=== PATIENT | female | born 1955 | race Caucasian/White ===

== ENCOUNTER → 2017-01-02 | Day surgery (SDC) | payer MEDICARE, BC ==
[~2017-01-02] MED LIST: AZEL1SPR2 EACH NARE; BACT800T5 PO; CALCTAB80 PO; CARV12.52 PO; CHOL1CAP61 PO; CLON.5 PO; CYAN1000P IM; CYCL1TAB29 PO; CYMB60CA PO; FLUT1SPR5 EACH NARE; INCOBOTULINUMTOXINA 100 UNITS VIAL IM ONE; KETO10 PO; LOSA100T PO; MACR100C3 PO; MONT10TA2 PO; PANT20 PO; PERC5TAB12 PO; POTA-53 PO; PRAV20TA PO; QUET50XR PO; REQU3TAB PO; SODIUM CHLORIDE 0.9% 10 ML VIAL ONE; SYNT112T PO; TERI14TA PO; VENL75TA PO; VITA200012 PO; ZANT300T PO; ZOLE5P IV
--- NOTE | 2017-01-07 17:31 | M6 ---
cc: WILFRIDO LOCO M.D. DATE: 01/02/2017 DATE OF : 1955 PROCEDURE Injection botulinum toxin type A (Xeomin) right trapezius and posterior cervical musculature. History and physical was completed and signed. Consent was signed. Procedure site was marked. Medications were listed and reconciled. Pain score was recorded. Allergies were noted. Time out was taken. Fluoroscopy time was recorded where applicable. PROCEDURE NOTE: Blood pressure cuff, pulse oximeter were applied. The patient was placed in the sitting position. The skin over the right trapezius and cervical area was prepped with alcohol. The areas of greatest spasticity were identified. A 27 gauge needle was used to inject a total of 180 units of Xeomin at six different locations corresponding to the areas of greatest spasticity. Following this the patient was observed in recovery area with stable vital signs prior to being discharged. W. MD SANTA Salazar/HERMAN /7:24 AM /5:29 PM
== END | disposition home or self-care (01) ==
LOC: PHSDC 06:30
PROVIDERS: ATTEND Pain Medicine Interventional Pain Medicine
DX: G24.3 Spasmodic torticollis (principal); M25.512 Pain in left shoulder; M25.511 Pain in right shoulder
CPT/HCPCS: 64616; J0588

== ENCOUNTER → 2017-01-07 | Day surgery (SDC) | payer MEDICARE, BC ==
--- NOTE | 2017-01-12 05:36 | M6 ---
cc: WILFRIDO LOCO M.D. DATE: 01/07/2017 DATE OF 1955 PROCEDURE Fluoroscopically guided injection left trapezius, botulinum toxin type A (Xeomin). History and physical was completed and signed. Consent was signed. Procedure site was marked. Medications were listed and reconciled. Pain score was recorded. Allergies were noted. Time out was taken. Fluoroscopy time was recorded where applicable. PROCEDURE NOTE: Blood pressure cuff, pulse oximeter were applied. The patient was placed in the sitting position. The skin over the left trapezius and posterior cervical area was prepped with alcohol. The areas of greatest spasticity were identified. A 27 gauge needle was used to inject a total of 180 units of Xeomin at six different locations corresponding to the areas of greatest spasticity. Following this the patient was observed in the recovery area with stable vital signs prior to being discharged. W. MD SANTA Salazar/HERMAN /7:31 AM /5:34 AM
== END | disposition home or self-care (01) ==
LOC: PHSDC 06:53
PROVIDERS: ATTEND Pain Medicine Interventional Pain Medicine
DX: G24.8 Other dystonia (principal); G24.3 Spasmodic torticollis; M25.512 Pain in left shoulder; M25.511 Pain in right shoulder
CPT/HCPCS: 64616; J0588

== ENCOUNTER 2017-01-23 08:37 | Observation (INO) | payer MEDICARE, BC ==
[~2017-01-23] VITALS: Ht 162.6 cm; Wt 72.0 kg
[2017-01-23] VITALS (8 sets, daily range): BP systolic 109–133; BP diastolic 69–79; PULSE 73–104; RESP 17–20; TEMP 97.1–98.4; O2SAT 95–100
[~2017-01-23 08:37] MED LIST changes: -AZEL1SPR2 EACH NARE; -BACT800T5 PO; -CHOL1CAP61 PO; -FLUT1SPR5 EACH NARE; -INCOBOTULINUMTOXINA 100 UNITS VIAL IM ONE; -MACR100C3 PO; -PERC5TAB12 PO; -SODIUM CHLORIDE 0.9% 10 ML VIAL ONE
[2017-01-23] MEDS ORDERED: SODIUM CHLORIDE 0.9% FLUSH 10 ML FLUSH IVF PRN (09:00)
[2017-01-23] MEDS ORDERED: SODIUM CHLOR 0.9% 1000 ML INJ 1,000 ML IV SCH (09:00)
[2017-01-23] MEDS ORDERED: ASPIRIN 81 MG CHEW TAB PO ONE (09:00)
[2017-01-23 09:31] LABS: AUTOMATED NEUTROPHIL # 9.7 TH/MM3 (1.8-7.7); BASOPHIL # 0.1 TH/MM3 (0-0.2); BASOPHIL % 0.8 % (0.0-2.0); EOSINOPHIL # 0.1 TH/MM3 (0-0.4); EOSINOPHIL % 1.1 % (0.0-4.0); HEMATOCRIT 38.7 % (35.0-46.0); LYMPH % 14.7 % (9.0-44.0); LYMPHOCYTE # 1.8 TH/MM3 (1.0-4.8); MEAN CELL VOLUME 86.4 FL (80.0-100.0); MEAN CORPUSCULAR HGB CONC 33.5 % (32.0-36.0); MONO % 6.2 % (0.0-8.0); NEUT % 77.2 % (16.0-70.0); PLATELET COUNT 312 TH/MM3 (150-450); RED BLOOD COUNT 4.48 MIL/MM3 (4.00-5.30); RED CELL DISTRIBUTION WIDTH 15.5 % (11.6-17.2); WHITE BLOOD COUNT 12.5 TH/MM3 (4.0-11.0)
[2017-01-23 09:32] LABS: HEMO FLAGS AUTO DIFF
--- NOTE | 2017-01-23 09:42 | RADRPT ---
EXAM DATE/TIME: 01/23/2017 09:08 [facility] COMPARISON: CHEST SINGLE AP, December 31, 2015, 21:57. INDICATIONS : Chest pain, shortness of breath, nausea, diarrhea. MEDICAL HISTORY : Hypertension. Carcinoma, breast. Gastroesophageal reflux disease. MS SURGICAL HISTORY : Mastectomy, left. Lobectomy. Port placement. ENCOUNTER: Initial ACUITY: 2 days PAIN SCORE: 9/10 LOCATION: Bilateral chest FINDINGS: A single view of the chest demonstrates the lungs to be symmetrically aerated without evidence of mas s, infiltrate or effusion. The cardiomediastinal contours are unremarkable. The right sided implant able port catheter remains in place. There are multiple overlying electrocardiogram leads. Osseous st ructures are intact. CONCLUSION: No acute disease. Simon Contreras MD on January 23, 2017 at 9:39 Board Certified Radiologist. This report was verified electronically.
[2017-01-23 09:46] LABS: APTT (PATIENT) 25.9 SEC (24.3-30.1)
--- NOTE | 2017-01-23 09:48 | PD ---
HPI Chief Complaint: Chest Pain Time Seen by Provider: 08:52 Travel History International Travel<30 days: No Contact w/Intl Traveler<30days: No Traveled to known affect area: No History of Present Illness HPI This is a 61-year-old female who has a history of multiple sclerosis who presents to the emergency department with 2 days of chest discomfort in the center of her chest, constant, feeling like a heaviness, nonradiating, associated with some shortness of breath. She also describes increasing weakness described as difficulty moving her arms and legs, difficulty standing up from a sitting position. She follows with Dr. Asif for her multiple sclerosis. She also reports loose stools over the past several days and decreased appetite. She does have a history of hypertension and hyperlipidemia and a remote smoking history. She denies any fevers, chills or recent cough. She does self catheterize. She was recently told that she has chronic kidney disease. PFSH Past Medical History Autoimmune Disease: Yes (MULTIPLE SCLEROSIS) Anxiety: Yes Depression: Yes Cancer: Yes (BILATERAL BREAST CA) Cardiovascular Problems: Yes (htn, arrythmia) High Cholesterol: Yes Chemotherapy: Yes (in the past for breast ca) Diabetes: No Diminished Hearing: No Endocrine: Yes Gastrointestinal Disorders: Yes (GASTROPARESIS, ACID REFLUX, HX OF ESOPHAGEAL STRICTURE/DILATION) Genitourinary: Yes (BLADDER RETENTION) Hepatitis: No Hiatal Hernia: Yes Hypertension: Yes Immune Disorder: Yes (MULTIPLE SCLEROSIS) Implanted Vascular Access Dvce: Yes (R. SIDE POWER PORT) Musculoskeletal: Yes (ARTHRITIS IN SPINE) Neurologic: Yes (MULTIPLE SCLEROSIS) Psychiatric: Yes Reproductive: No Respiratory: No Immunizations Current: Yes Migraines: Yes Radiation Therapy: Yes Thyroid Disease: Yes (HYPO) Tetanus Vaccination: > 5 Years Influenza Vaccination: No Menopausal: Yes Past Surgical History Abdominal Surgery: Yes (APPENDECTOMY) AICD: No Appendectomy: Yes Cardiac Surgery: No Ear Surgery: No Endocrine Surgery: No Eye Surgery: Yes (LASIK 2000) Genitourinary Surgery: No Gynecologic Surgery: No Joint Replacement: No Neurologic Surgery: Yes (CARPAL TUNNEL L WRIST) Oral Surgery: Yes (TONSILLECTOMY) Pacemaker: No Thoracic Surgery: Yes (BILATERAL LUMPECTOMY WITH RADIATION L SIDE) Tonsillectomy: Yes Other Surgery: Yes (left mastectomy appendectomy, tonsilctomy, left carpal tunnel.) Social History Alcohol Use: No Tobacco Use: No Substance Use: No Allergies-Medications (Allergen,Severity, Reaction): Coded Allergies: Kiwi (Verified Allergy, Severe, THROAT SWELLS, 01/23/17) Adhesives (Verified Allergy, Intermediate, BLISTERS, REDNESS AT PORT SITE , ITCHING, 01/23/17) Betadine (Verified Allergy, Intermediate, BLISTERS, REDNESS AT PORT SITE, 01/23/17) Latex (Verified Allergy, Intermediate, BLISTERS, 01/23/17) Reported Meds & Prescriptions Reported Meds & Active Scripts Active Reported Cymbalta DR (Duloxetine HCl) 60 Mg Capdr 60 Mg PO HS Zantac (Ranitidine HCl) 300 Mg Tab 300 Mg PO DAILY Vitamin D3 (Cholecalciferol) 2,000 Unit Tab 2,000 Units PO DAILY Singulair (Montelukast Sodium) 10 Mg Tab 10 Mg PO DAILY Requip (Ropinirole) 3 Mg Tab 3 Mg PO HS Reclast Inj (Zoledronic Acid) 5 Mg/100 Ml Inj 5 Mg IV ONCE Protonix (Pantoprazole Sodium) 20 Mg Tab 20 Mg PO BID Pravachol (Pravastatin) 20 Mg Tab 20 Mg PO DAILY Losartan (Losartan Potassium) 100 Mg Tab 100 Mg PO DAILY Klonopin (Clonazepam) 0.5 Mg Tab 1.5 Mg PO QID Potassium Chloride 1 Pow Pow 10 Meq PO DAILY Flexeril (Cyclobenzaprine HCl) 10 Mg Tab 10 Mg PO TID Effexor (Venlafaxine HCl) 75 Mg Tab 150 Mg PO DAILY Carvedilol 12.5 Mg Tab 6.25 Mg PO BID Calcium 1000 + D (Calcium Carbonate-Cholecalciferol) 1,000-800 Mg-Unit Tab 2, 000 Tab PO DAILY Aubagio (Teriflunomide) 14 Mg Tab 14 Mg PO DAILY Synthroid (Levothyroxine Sodium) 112 Mcg Tab 112 Mcg PO DAILY Seroquel XR (Quetiapine Fumarate) 50 Mg Tab 2 Tab PO HS Review of Systems Except as stated in HPI: all other systems reviewed are Neg Physical Exam Narrative GENERAL: Unwell-appearing. SKIN: Dry with skin tenting. HEAD: Atraumatic. Normocephalic. EYES: Pupils equal and round. No injection or drainage. ENT: Dry mucous membranes. NECK: Trachea midline. CARDIOVASCULAR: Regular rate and rhythm. No murmur appreciated. RESPIRATORY: Tachypneic, clear to auscultation bilaterally. GASTROINTESTINAL: Abdomen soft, non-tender, nondistended. MUSCULOSKELETAL: No obvious deformities. NEUROLOGICAL: Awake and alert. No obvious cranial nerve deficits. 4 out of 5 strength in the bilateral upper and lower extremities. PSYCHIATRIC: Appropriate mood and affect; insight and judgment normal. Data Data Last Documented VS Vital Signs Date Time Temp Pulse Resp B/P Pulse Ox O2 Delivery O2 Flow Rate FiO2 01/23/17 10:01 74 17 118/78 100 Room Air 01/23/17 08:41 97.9 Orders Electrocardiogram (01/23/17 ) B-Type Natriuretic Peptide (01/23/17 08:59) Complete Blood Count With Diff (01/23/17 08:59) Comprehensive Metabolic Panel (01/23/17 08:59) D-Dimer (01/23/17 08:59) Magnesium (Mg) (01/23/17 08:59) Prothrombin Time / Inr (Pt) (01/23/17 08:59) Act Partial Throm Time (Ptt) (01/23/17 08:59) Troponin I (01/23/17 08:59) Chest, Single Ap (01/23/17 08:59) Ecg Monitoring (01/23/17 08:59) Bilateral Bp Monitoring (01/23/17 08:59) Iv Access Insert/Monitor (01/23/17 08:59) Oximetry (01/23/17 08:59) Oxygen Administration (01/23/17 08:59) Aspirin Chew (Aspirin Chew) (01/23/17 09:00) Sodium Chloride 0.9% Flush (Ns Flush) (01/23/17 09:00) Cath For Specimen (01/23/17 08:59) Urinalysis - C+S If Indicated (01/23/17 08:59) Sodium Chlor 0.9% 1000 Ml Inj (Ns 1000 M (01/23/17 09:00) Urine Culture (01/23/17 09:15) Blood Culture (01/23/17 10:24) Lactic Acid (01/23/17 10:24) Sodium Chlor 0.9% 1000 Ml Inj (Ns 1000 M (01/23/17 10:30) Ceftriaxone Inj (Rocephin Inj) (4/13/17 10:30) Admit Order (Ed Use Only) (01/23/17 10:45) Labs Laboratory Tests Test 01/23/17 01/23/17 01/23/17 01/23/17 09:05 09:08 09:10 09:15 White Blood Count 12.5 TH/MM3 Red Blood Count 4.48 MIL/MM3 Hemoglobin 13.0 GM/DL Hematocrit 38.7 % Mean Corpuscular Volume 86.4 FL Mean Corpuscular Hemoglobin 29.0 PG Mean Corpuscular Hemoglobin 33.5 % Concent Red Cell Distribution Width 15.5 % Platelet Count 312 TH/MM3 Mean Platelet Volume 7.1 FL Neutrophils (%) (Auto) 77.2 % Lymphocytes (%) (Auto) 14.7 % Monocytes (%) (Auto) 6.2 % Eosinophils (%) (Auto) 1.1 % Basophils (%) (Auto) 0.8 % Neutrophils # (Auto) 9.7 TH/MM3 Lymphocytes # (Auto) 1.8 TH/MM3 Monocytes # (Auto) 0.8 TH/MM3 Eosinophils # (Auto) 0.1 TH/MM3 Basophils # (Auto) 0.1 TH/MM3 CBC Comment AUTO DIFF Differential Total Cells 100 Counted Neutrophils % (Manual) 63 % Band Neutrophils % 11 % Lymphocytes % 15 % Monocytes % 6 % Eosinophils % 1 % Basophils % 2 % Neutrophils # (Manual) 9.5 TH/MM3 Myelocytes 2 % Differential Comment FINAL DIFF MANUAL Platelet Estimate NORMAL Platelet Morphology Comment NORMAL Red Cell Morphology Comment NORMAL Prothrombin Time 11.0 SEC Prothromb Time International 1.0 RATIO Ratio Activated Partial 25.9 SEC Thromboplast Time D-Dimer Quantitative (PE/DVT) 0.51 MG/L FEU Sodium Level 139 MEQ/L Potassium Level 4.0 MEQ/L Chloride Level 105 MEQ/L Carbon Dioxide Level 23.2 MEQ/L Anion Gap 11 MEQ/L Blood Urea Nitrogen 20 MG/DL Creatinine 1.16 MG/DL Estimat Glomerular Filtration 48 ML/MIN Rate Random Glucose 118 MG/DL Calcium Level 10.2 MG/DL Magnesium Level 1.9 MG/DL Total Bilirubin 0.2 MG/DL Aspartate Amino Transf 17 U/L (AST/SGOT) Alanine Aminotransferase 23 U/L (ALT/SGPT) Alkaline Phosphatase 157 U/L Troponin I LESS THAN 0.02 NG/ML Total Protein 6.9 GM/DL Albumin 3.6 GM/DL Urine Color YELLOW Urine Turbidity CLOUDY Urine pH 5.5 Urine Specific [place] 1.017 Urine Protein 30 mg/dL Urine Glucose (UA) NEG mg/dL Urine Ketones NEG mg/dL Urine Occult Blood TRACE Urine Nitrite POS Urine Bilirubin NEG Urine Urobilinogen 0.2 MG/DL Urine Leukocyte Esterase SMALL Urine RBC 15 /hpf Urine WBC /hpf Urine WBC Clumps MANY Urine Squamous Epithelial <1 /hpf Cells Urine Bacteria MOD /hpf Urine Hyaline Casts 4 /lpf Urine Mucus FEW /lpf Microscopic Urinalysis Comment CATH-CULTURE IND Urine Collection Time 0910 Test 01/23/17 10:36 Lactic Acid Level 0.5 mmol/L MDM Medical Decision Making Medical Screen Exam Complete: Yes Emergency Medical Condition: Yes Interpretation(s) Afebrile, tachycardic, normotensive Leukocytosis of 12 with 77% neutrophils and 11% bands Mild renal insufficiency Lactic acid is normal Troponin is normal Urinalysis: Urinary tract infection Chest x-ray: No acute process Differential Diagnosis Urinary tract infection, MS flare, acute coronary syndrome, pulmonary embolism, pneumonia Narrative Course This is a 61-year-old female who presents to the emergency department with generalized weakness, chest pain and a history of multiple sclerosis. She self catheterizes. She is placed in a monitor and an IV was established. She was tachycardic on arrival. She was given IV hydration. Labs demonstrate a leukocytosis with an 11% bandemia and the patient has a urinary tract infection. Cultures were obtained and patient was given ceftriaxone. She'll be admitted for sepsis in the setting of a UTI. I spoke to Dr. Asif who is her neurologist. He recommended an MRI with and without contrast to evaluate whether this is a pseudo-exacerbation or a true MS exacerbation and he recommended deferring steroids until we have the results of this test. Physician Communication Physician Communication Discussed with Dr. Salazar and Dr. Asif Diagnosis Primary Impression: Sepsis Qualified Code: A41.9 - Sepsis, due to unspecified organism Admitting Information Admitting Physician Requests: Admit Tierra Jennings MD Jan 23, 2017 09:48
[2017-01-23 09:57] LABS: ANION GAP 11 MEQ/L (5-15); AST (GOT) 17 U/L (15-37); BICARBONATE 23.2 MEQ/L (21.0-32.0); BLOOD UREA NITROGEN 20 MG/DL (7-18); CHLORIDE 105 MEQ/L (98-107); GLOMERULAR FILTRATION RATE 48 ML/MIN (>89); MAGNESIUM 1.9 MG/DL (1.5-2.5); SODIUM (NA) 139 MEQ/L (136-145)
[2017-01-23 10:02] LABS: ALKALINE PHOSPHATASE 157 U/L (45-117); ALT (GPT) 23 U/L (10-53); TOTAL BILIRUBIN ADULT 0.2 MG/DL (0.2-1.0)
[2017-01-23 10:02] LABS: BANDS 11 % (0-6); BASOPHILS 2 % (0-2); EOSINOPHILS 1 % (0-4); MYELOCYTES 2 % (0-0); NEUTROPHIL # MANUAL DIFF 9.5 TH/MM3 (1.8-7.7); POLYS (SEG NEUTROPHILS) 63 % (16-70); WBC DIFF SAMPLE 100
[2017-01-23 10:03] LABS: PLATELET ESTIMATE SMEAR NORMAL (NORMAL); PLATELET MORPHOLOGY NORMAL (NORMAL); SCAN/DIFF FINAL DIFF MANUAL
[2017-01-23 10:08] LABS: BACTERIA, URINE MOD /hpf; HYALINE CAST, URINE 4 /lpf (RARE); MUCUS URINE FEW /lpf (OCC); SQUAMOUS EPITHELIAL CELL URINE <1 /hpf (0-5)
[2017-01-23 10:09] LABS: COMMENT (UR) CATH-CULTURE IND; CULTURE IF INDICATED CATH CULTURE IND
[2017-01-23 10:11] LABS: URINE COLOR YELLOW (YELLW/STRAW)
[2017-01-23 10:12] LABS: PH, URINE 5.5 (5.0-8.5)
[2017-01-23 10:14] LABS: BLOOD, URINE TRACE (NEG); GLUCOSE,URINE NEG (NEG); KETONE, URINE NEG (NEG); NITRITE,URINE POS (NEG)
[2017-01-23] MEDS ORDERED: cefTRIAXone INJ 1,000 MG in SODIUM CHLORIDE 0.9% INJ 100 ML IV ONE (10:30)
[2017-01-23] MEDS ORDERED: SODIUM CHLOR 0.9% 1000 ML INJ 1,000 ML IV ONE (10:30)
[2017-01-23] MEDS ORDERED: SODIUM CHLORIDE 0.9% FLUSH 10 ML FLUSH IV FLUSH PRN (11:00)
[2017-01-23] MEDS ORDERED: ACETAMINOPHEN 325 MG TAB PO PRN (11:00)
[2017-01-23] MEDS ORDERED: ONDANSETRON HCL 4 MG/2 ML VIAL IVP PRN (11:00)
[2017-01-23] MEDS ORDERED: NALOXONE HCL 0.4 MG/ML AMP IV PRN (11:00)
[2017-01-23] MEDS ORDERED: GADODIAMIDE PF 287 MG/ML 5 ML VIAL (for RAD MRI) IV ONE (12:09)
[2017-01-23] MEDS: LACTATED RINGER'S 1000 ML INJ 1,000 ML IV SCH (12:20)
[2017-01-23] MEDS: HEPARIN SODIUM - SQ 10,000 UNITS/ML VIAL SQ SCH (12:20)
[2017-01-23 12:24] LABS: CREATINE KINASE 69 U/L (26-192)
--- NOTE | 2017-01-23 12:33 | RADRPT ---
EXAM DATE/TIME: 01/23/2017 11:48 [facility] COMPARISON: No previous studies available for comparison. INDICATIONS : Multiple sclerosis. Weakness and cephalgia. CONTRAST: 14 cc Omniscan (gadodiamide) IV MEDICAL HISTORY : Carcinoma, breast. Arthritis. Hypertension. SURGICAL HISTORY : Appendectomy. Carpal tunnel syndrome. ENCOUNTER: Initial ACUITY: 1 day PAIN SCORE: 5/10 LOCATION: Head. TECHNIQUE: Multiplanar, multisequence MRI of the brain was performed both prior to and following the administrat ion of paramagnetic contrast. FINDINGS: CEREBRUM: The ventricles are normal for age. No evidence of midline shift, mass lesion, hemorrhage or acute in farction. No extraaxial fluid collections are seen. The pituitary gland and suprasellar cistern are normal in configuration. WHITE MATTER: On the flair weighted images there are several small scattered punctate areas of increased signal. Se veral of these are perpendicular to the ventricular system. POSTERIOR FOSSA: The cerebellum and brainstem are intact. The 4th ventricle is midline. The cerebellopontine angle is unremarkable. The cerebellar tonsils are normal in position. DIFFUSION IMAGING: No focal areas of restricted diffusion are seen. No evidence of acute infarction. EXTRACRANIAL: The visualized portions of the orbits and paranasal sinuses are unremarkable. POST-CONTRAST: No abnormal areas of parenchymal or dural enhancement. No evidence of blood-brain barrier breakdown. CONCLUSION: 1. Multiple punctate areas of increased signal in the deep white matter several which are perpendicul ar to the ventricular system and could represent areas of demyelination. There is no abnormal enhance ment. 2. No acute hemorrhage, mass or evidence of infarction. Simon Contreras MD on January 23, 2017 at 12:29 Board Certified Radiologist. This report was verified electronically.
[2017-01-23] MEDS ORDERED: traMADol HCL 50 MG TAB PO ONE (12:45)
[2017-01-23] MEDS: FAMOTIDINE 20 MG TAB PO SCH ×2 (13:50→19:34)
[2017-01-23] MEDS: CYCLOBENZAPRINE HCL 10 MG TAB PO SCH ×2 (13:50→17:31)
--- NOTE | 2017-01-23 14:53 | EKG ---
Date Performed: 01/23/2017 Time Performed: 08:55:44 PTAGE: 61 years EKG: Sinus rhythm NORMAL ECG PREVIOUS TRACING : 06/26/2016 12.10 No significant change from previous tracing noted. DOCTOR: Mamadou Moreno Interpretating Date/Time 01/23/2017 14:52:02
--- NOTE | 2017-01-23 16:20 | HHI.HP ---
HPI Service [facility] Primary Care Physician Drea Mayers Admission Diagnosis sepsis, uti Diagnoses: Chief Complaint: cp, sob, weakness Travel History International Travel<30 Days: No Contact w/Intl Traveler <30 Da: No Traveled to Known Affected Are: No History of Present Illness This is a 60-year-old female with known history of hypertension, hyperlipidemia, gastroesophageal reflux, history of breast cancer, hypothyroidism, multiple sclerosis, restless leg syndrome, history of trigeminal neuralgia. Presented to the hospital because of complaining of chest pain associated with shortness of breath. Patient states that she woke up today and she immediately felt chest pressure, rated at 89, midsternal, no radiation. She also felt very short of breath and lightheaded. No nausea, no vomiting, no diaphoresis. Pain is less now, did receive aspirin which did improve slightly. Patient also endorses feeling poorly for the last 3 days, has had very little appetite, has felt nauseous with some vomiting. Has noted loose bowel movements, no blood in the stool. She's having a lot of difficulty moving her arms and legs and has been using her walker and cane more frequently. She is also endorsing increased pain to her ankles and her knees. She thinks that this may be related to having a flareup from multiple sclerosis. She is on Aubagio and doesn't believe the medication is working as well anymore. Her neurologist is Dr. Asif. Patient endorses history of urinary retention for which she does self-catheterization. She has not had any fever, no chills. Patient presented to the emergency room, she was afebrile. Hemodynamically stable. Laboratory workup was completed, CBC remarkable for mild leukocytosis, WBC 12.5 and bandemia. BUN was 20, creatinine 1.16 with GFR of 48. Patient states she was recently diagnosed with CK D stage III. Urinalysis was positive for bacteria and leukocyte esterase. Lactic acid was negative. Patient was started on empiric antibiotics, IV fluids were given. She also received aspirin. Dr. Asif was called from the emergency room and requested a brain MRI with and without contrast to evaluate whether this is pseudo-exacerbation or a true MS exacerbation. He is deferring steroids until brain MRI results are back. Patient is now evaluated, complaining of severe ankle any pain. Denies any recent injury. Patient is concerned, wants to know if she is going to be discharge in the morning. Patient is admitted for further evaluation and treatment. Review of Systems Constitutional: COMPLAINS OF: Dizziness, Change in appetite, DENIES: Diaphoretic episodes, Fatigue, Fever, Weight gain, Weight loss, Chills, Night Sweats Endocrine: DENIES: Abnorml menstrual pattern, Heat/cold intolerance, Polydipsia , Polyuria, Polyphagia Ears, nose, mouth, throat: DENIES: Tinnitus, Hearing loss, Vertigo, Nasal discharge, Oral lesions, Throat pain, Hoarseness, Ear Pain, Running Nose, Epistaxis, Sinus Pain, Toothache, Odynophagia Respiratory: COMPLAINS OF: Shortness of breath, DENIES: Apneas, Cough, Snoring , Wheezing, Hemoptysis, Sputum production Cardiovascular: COMPLAINS OF: Chest pain, DENIES: Palpitations, Syncope, Dyspnea on Exertion, PND, Lower Extremity Edema, Orthopnea, Claudication Gastrointestinal: COMPLAINS OF: Diarrhea, Nausea, Vomiting, DENIES: Abdominal pain, Black stools, Bloody stools, Constipation, Difficulty Swallowing, Anorexia Genitourinary: DENIES: Abnormal vaginal bleeding, Dysmenorrhea, Dyspareunia, Sexual dysfunction, Urinary frequency, Urinary incontinence, Urgency, Hematuria , Dysuria, Nocturia, Vaginal discharge Musculoskeletal: COMPLAINS OF: Joint pain (knees and ankles ), DENIES: Muscle aches, Stiffness, Joint Swelling, Back pain, Neck pain Integumentary: DENIES: Abnormal pigmentation, Pruritus, Rash, Nail changes, Breast masses, Breast skin changes, Nipple discharge Hematologic/lymphatic: DENIES: Bruising, Lymphadenopathy Immunologic/allergic: DENIES: Eczema, Urticaria Neurologic: DENIES: Abnormal gait, Headache, Localized weakness, Paresthesias, Seizures, Speech Problems, Tremor, Poor Balance Psychiatric: DENIES: Anxiety, Confusion, Mood changes, Depression, Hallucinations, Agitation, Suicidal Ideation, Homicidal Ideation, Delusions Past Family Social History Past Medical History CKD III Previous admissions for chest pain, had stress test in 2014 that was negative. Hypertension Hyperlipidemia Multiple sclerosis Restless leg syndrome Gastroesophageal reflux Hypothyroidism History of breast cancer History trigeminal neuralgia, previously treated with Botox injections. History of sleep apnea Past Surgical History Bilateral breast lumpectomies Tonsillectomy Appendectomy Stereotactic radiosurgery of left trigeminal nerve History of endoscopy with esophageal stricture dilatation Left wrist carpal tunnel surgery Lasik eye surgery Reported Medications Reported Meds & Active Scripts Active Reported Cymbalta DR (Duloxetine HCl) 60 Mg Capdr 60 Mg PO HS Zantac (Ranitidine HCl) 300 Mg Tab 300 Mg PO DAILY Vitamin D3 (Cholecalciferol) 2,000 Unit Tab 2,000 Units PO DAILY Singulair (Montelukast Sodium) 10 Mg Tab 10 Mg PO DAILY Requip (Ropinirole) 3 Mg Tab 3 Mg PO HS Reclast Inj (Zoledronic Acid) 5 Mg/100 Ml Inj 5 Mg IV ONCE Protonix (Pantoprazole Sodium) 20 Mg Tab 20 Mg PO BID Pravachol (Pravastatin) 20 Mg Tab 20 Mg PO DAILY Losartan (Losartan Potassium) 100 Mg Tab 100 Mg PO DAILY Klonopin (Clonazepam) 0.5 Mg Tab 1.5 Mg PO QID Potassium Chloride 1 Pow Pow 10 Meq PO DAILY Flexeril (Cyclobenzaprine HCl) 10 Mg Tab 10 Mg PO TID Effexor (Venlafaxine HCl) 75 Mg Tab 150 Mg PO DAILY Carvedilol 12.5 Mg Tab 6.25 Mg PO BID Calcium 1000 + D (Calcium Carbonate-Cholecalciferol) 1,000-800 Mg-Unit Tab 2, 000 Tab PO DAILY Aubagio (Teriflunomide) 14 Mg Tab 14 Mg PO DAILY Synthroid (Levothyroxine Sodium) 112 Mcg Tab 112 Mcg PO DAILY Seroquel XR (Quetiapine Fumarate) 50 Mg Tab 2 Tab PO HS Allergies: Coded Allergies: Kiwi (Verified Allergy, Severe, THROAT SWELLS, 01/23/17) Adhesives (Verified Allergy, Intermediate, BLISTERS, REDNESS AT PORT SITE , ITCHING, 01/23/17) Betadine (Verified Allergy, Intermediate, BLISTERS, REDNESS AT PORT SITE, 01/23/17) Latex (Verified Allergy, Intermediate, BLISTERS, 01/23/17) Active Ordered Medications Inpatient Medications Acetaminophen (Tylenol) 650 mg Q4H PRN PO TEMP > 100.4; Start 01/23/17 at 11:00 Aspirin (Aspirin Chew) 162 mg ONCE ONCE PO Last administered on 01/23/17t 09: 10; Start 01/23/17 at 09:00; Stop 01/23/17 at 09:01; Status DC Calcium/Vitamin D (Oscal-D 250-125) 500 mg DAILY PO ; Start 01/24/17 at 09:00 Carvedilol (Coreg) 6.25 mg BID PO ; Start 01/23/17 at 21:00 Ceftriaxone Sodium 1000 mg/ Sodium Chloride 100 ml @ 200 mls/hr ONCE ONCE IV Last administered on 01/23/17 10:36; Start 01/23/17 at 10:30; Stop 01/23/17 at 10:59; Status DC Ceftriaxone Sodium/Sodium Chloride (Rocephin Inj/NS Inj) 100 ml @ 200 mls/hr Q24H IV ; Start 01/24/17 at 10:00 Cholecalciferol (Vitamin D3) 2,000 units DAILY PO ; Start 01/24/17 at 09:00 Cyclobenzaprine HCl (Flexeril) 10 mg TID PO Last administered on 01/23/17 13: 50; Start 01/23/17 at 13:00 Duloxetine HCl (Cymbalta Dr) 60 mg HS PO ; Start 01/23/17 at 21:00 Famotidine (Pepcid) 20 mg BID PO Last administered on 01/23/17 13:50; Start at 13:15 Heparin Sodium (Porcine) (Heparin Inj) 5,000 units Q12H SQ Last administered on 01/23/17 12:20; Start 01/23/17 at 12:00 Lactated Ringer's (Lr 1000 ml Inj) 1,000 ml @ 50 mls/hr Q20H IV Last administered on 01/23/17 12:20; Start 01/23/17 at 12:00 Levothyroxine Sodium (Synthroid) 112 mcg DAILY@06 PO ; Start 01/24/17 at 06:00 Losartan Potassium (Cozaar) 100 mg DAILY PO ; Start 01/24/17 at 09:00 Montelukast Sodium (Singulair) 10 mg DAILY PO ; Start 01/24/17 at 09:00 Naloxone HCl (Narcan Inj) 0.4 mg UNSCH PRN IV SEE LABEL COMMENTS; Start at 11:00 Non-Formulary Medication 10 meq DAILY PO ; Start 01/24/17 at 09:00; Stop at 09:00; Status DC Ondansetron HCl (Zofran Inj) 4 mg Q6H PRN IVP NAUSEA OR VOMITING; Start at 11:00 Pantoprazole Sodium (Protonix) 20 mg BID PO ; Start 01/23/17 at 21:00 Patient Own Medication PT OWN MED: Teriflunomide (Aubagio)... DAILY PO ; Start 01/24/17 at 09:00; Status Future Hold Pravastatin Sodium (Pravachol) 20 mg DAILY PO ; Start 01/24/17 at 09:00 Quetiapine Fumarate (SEROquel) 50 mg BID PO ; Start 01/23/17 at 21:00 Ropinirole HCl (Requip) 3 mg HS PO ; Start 01/23/17 at 21:00 Sodium Chloride (NS Flush) 2 ml BID IV FLUSH ; Start 01/23/17 at 21:00 Sodium Chloride 2 ml 2 ml UNSCH PRN IVF FLUSH AFTER USING IV ACCESS Last administered on 01/23/17t 10:09; Start 01/23/17 at 09:00; Stop 01/23/17 at 11:57 ; Status DC Tramadol HCl 50 mg 50 mg ONCE ONCE PO Last administered on 01/23/17t 12:43; Start 01/23/17 at 12:45; Stop 01/23/17 at 12:46; Status DC Venlafaxine HCl (Effexor Xr) 150 mg DAILY PO ; Start 01/24/17 at 09:00 Family History Reviewed and significant for father having coronary bypass surgery. He subsequently from colon cancer. Grandmother with cancer, aunt with diabetes Social History Patient is , has grown children. Quit smoking in 1990, prior to that she smoked up to 4 pack of cigarettes a day since she was a teenager. No alcohol, no illicit drugs. Uses a walker and cane for ambulation. Physical Exam Vital Signs Vital Signs Date Time Temp Pulse Resp B/P Pulse Ox O2 Delivery O2 Flow Rate FiO2 01/23/17 14:16 97.1 83 20 133/75 95 01/23/17 12:29 97.8 76 17 120/76 100 01/23/17 10:01 74 17 118/78 100 Room Air 01/23/17 09:00 74 18 119/79 100 Room Air 128/75 01/23/17 09:00 100 Room Air 01/23/17 08:53 18 100 Room Air 01/23/17 08:53 89 18 100 Room Air 01/23/17 08:41 97.9 104 20 109/69 100 Room Air Physical Exam GENERAL: This is a well-nourished, well-developed patient, in no apparent distress. SKIN: No rashes, ecchymoses or lesions. Cool and dry. HEAD: Atraumatic. Normocephalic. No temporal or scalp tenderness. EYES: Pupils equal round and reactive. Extraocular motions intact. No scleral icterus. No injection or drainage. ENT: Nose without bleeding, purulent drainage or septal hematoma. Throat without erythema, tonsillar hypertrophy or exudate. Uvula midline. Airway patent. NECK: Trachea midline. No JVD or lymphadenopathy. Supple, nontender, no meningeal signs. CARDIOVASCULAR: Regular rate and rhythm without murmurs, gallops, or rubs. RESPIRATORY: Clear to auscultation. Breath sounds equal bilaterally. No wheezes , rales, or rhonchi. GASTROINTESTINAL: Abdomen soft, non-tender, nondistended. No hepato-splenomegaly , or palpable masses. No guarding. MUSCULOSKELETAL: Extremities without clubbing, cyanosis, or edema. No joint tenderness, effusion, or edema noted. No calf tenderness. Negative Homans sign bilaterally. NEUROLOGICAL: Awake, alert oriented 3. Upper extremity strength 4 out of 5. Lower extremity strength 4 out of 5. No sensory deficit. No focal deficits. No ataxia with [id number]. Laboratory Laboratory Tests Test 01/23/17 01/23/17 01/23/17 01/23/17 09:05 09:08 09:10 09:15 White Blood Count 12.5 Red Blood Count 4.48 Hemoglobin 13.0 Hematocrit 38.7 Mean Corpuscular Volume 86.4 Mean Corpuscular Hemoglobin 29.0 Mean Corpuscular Hemoglobin 33.5 Concent Red Cell Distribution Width 15.5 Platelet Count 312 Mean Platelet Volume 7.1 Neutrophils (%) (Auto) 77.2 Lymphocytes (%) (Auto) 14.7 Monocytes (%) (Auto) 6.2 Eosinophils (%) (Auto) 1.1 Basophils (%) (Auto) 0.8 Neutrophils # (Auto) 9.7 Lymphocytes # (Auto) 1.8 Monocytes # (Auto) 0.8 Eosinophils # (Auto) 0.1 Basophils # (Auto) 0.1 CBC Comment AUTO DIFF Differential Total Cells 100 Counted Neutrophils % (Manual) 63 Band Neutrophils % 11 Lymphocytes % 15 Monocytes % 6 Eosinophils % 1 Basophils % 2 Neutrophils # (Manual) 9.5 Myelocytes 2 Differential Comment FINAL DIFF MANUAL Platelet Estimate NORMAL Platelet Morphology Comment NORMAL Red Cell Morphology Comment NORMAL B-Type Natriuretic Peptide 21 Prothrombin Time 11.0 Prothromb Time International 1.0 Ratio Activated Partial 25.9 Thromboplast Time D-Dimer Quantitative (PE/DVT) 0.51 Sodium Level 139 Potassium Level 4.0 Chloride Level 105 Carbon Dioxide Level 23.2 Anion Gap 11 Blood Urea Nitrogen 20 Creatinine 1.16 Estimat Glomerular Filtration 48 Rate Random Glucose 118 Calcium Level 10.2 Magnesium Level 1.9 Total Bilirubin 0.2 Aspartate Amino Transf 17 (AST/SGOT) Alanine Aminotransferase 23 (ALT/SGPT) Alkaline Phosphatase 157 Troponin I LESS THAN 0.02 Total Protein 6.9 Albumin 3.6 Urine Color YELLOW Urine Turbidity CLOUDY Urine pH 5.5 Urine Specific [place] 1.017 Urine Protein 30 Urine Glucose (UA) NEG Urine Ketones NEG Urine Occult Blood TRACE Urine Nitrite POS Urine Bilirubin NEG Urine Urobilinogen 0.2 Urine Leukocyte Esterase SMALL Urine RBC 15 Urine WBC Urine WBC Clumps MANY Urine Squamous Epithelial <1 Cells Urine Bacteria MOD Urine Hyaline Casts 4 Urine Mucus FEW Microscopic Urinalysis Comment CATH-CULTURE IND Urine Collection Time 0910 Test 01/23/17 01/23/17 10:36 11:30 Lactic Acid Level 0.5 Total Creatine Kinase 69 Troponin I LESS THAN 0.02 Date/Time Procedure Status Source Growth 01/23/17 10:36 Aerobic Blood Culture Received Blood Peripheral Pending 01/23/17 10:36 Anaerobic Blood Culture Received Blood Peripheral Pending 01/23/17 09:15 Urine Culture Received Urine Catheterized Urine Pending Result Diagram: 01/23/17 0905 01/23/17 0910 Imaging Last Impressions Chest X-Ray 01/23/17 0859 Signed Impressions: Service Date/Time: January 09:08 - CONCLUSION: No acute disease. Simon Contreras MD Brain MRI 01/23/17 0000 Signed Impressions: Service Date/Time: January 11:48 - CONCLUSION: 1. Multiple punctate areas of increased signal in the deep white matter several which are perpendicular to the ventricular system and could represent areas of demyelination. There is no abnormal enhancement. 2. No acute hemorrhage, mass or evidence of infarction. Simon Contreras MD Assessment and Plan Problem List: (1) Chest pain (2) Multiple sclerosis (3) Hypertension (4) GERD (gastroesophageal reflux disease) (5) Hypothyroidism (6) Hyperlipidemia (7) Depression (8) History of tobacco use (9) Joint pain Plan: Knees and ankles (10) Weakness (11) UTI (urinary tract infection) (12) CKD (chronic kidney disease) stage 3, GFR 30-59 ml/min Assessment and Plan Admitted to Dr. Hinojosa 61-year-old female with history of MS, hypertension, hyperlipidemia. Presented to emergency room complaining of chest pressure associated with lightheadedness and shortness of breath. Initial serial troponin negative, EKG did not reveal any acute findings. -Cardiology consultation Continue with serial cardia enzymes Continue with aspirin -Continue with statin Leukocytosis with bandemia, + UTI, self catherizes -Continue with hydration Continue with antibiotics, follow urine culture MS, currently on Aubagio complaining of increased joint pain and generalized weakness Brain MRI has been completed, results reviewed Home medications reviewed, Continue with physical and occupational therapy Neurology has been consulted -Pain management Hypertension, stable continue home medications Hyperlipidemia, stable -continue home medication CKD is stage III, stable Continue with hydration Follow BMP Avoid nephrotoxic agent Heparin for DVT prophylaxis Protonix for GI prophylaxis Plan of care has been discussed with the patient, attending and registered nurse. Further management of the patient will be dependent on the hospital course This patient was seen by myself and Dr. Hinojosa, this H&P is written on his behalf Problem Qualifiers (1) Chest pain: Qualified Code: R07.9 - Chest pain, unspecified type (2) Hypertension: Qualified Code: I10 - Essential hypertension (3) GERD (gastroesophageal reflux disease): Qualified Code: K21.9 - Gastroesophageal reflux disease, esophagitis presence not specified (4) Hypothyroidism: Qualified Code: E03.9 - Hypothyroidism, unspecified type (5) Hyperlipidemia: Qualified Code: E78.4 - Other hyperlipidemia (6) Depression: Qualified Code: F32.9 - Depression, unspecified depression type (7) Joint pain: Qualified Code: M25.571 - Arthralgia of both ankles (8) UTI (urinary tract infection): Qualified Code: N39.0 - Urinary tract infection without hematuria, site unspecified Pamela Sanchez [facility] Jan 23, 2017 16:20
[2017-01-23] MEDS: ACETAMINOPHEN/HYDROcodone 325 MG/7.5 MG TAB PO PRN (17:32)
[2017-01-23 17:40] LABS: CREATINE KINASE 70 U/L (26-192)
[2017-01-23] MEDS: SODIUM CHLORIDE 0.9% FLUSH 10 ML FLUSH IV FLUSH SCH (19:33)
[2017-01-23] MEDS: MORPHINE SULFATE 4 MG/ML INJ IV PUSH PRN (19:33)
[2017-01-23] MEDS: CARVEDILOL 6.25 MG TAB PO SCH (19:34)
[2017-01-23] MEDS: PANTOPRAZOLE SOD 20 MG DELAYED RELEASE TAB PO SCH (19:34)
[2017-01-23] MEDS: QUEtiapine FUMARATE 100 MG TAB PO SCH (19:34)
[2017-01-23] MEDS ORDERED: methylPREDNISolone SO SUCC INJ 1,000 MG in DEXTROSE 5% IN WATER 100ML INJ 100 ML IV SCH ×2 (20:00)
[2017-01-23] MEDS ORDERED: DULoxetine HCl DR 60 MG CAP PO SCH (21:00)
--- NOTE | 2017-01-23 22:18 | MB ---
cc: ALANNA GUILLORY PHD MD DATE OF CONSULTATION 01/23/17 REASON FOR CONSULTATION MS exacerbation. HISTORY OF PRESENT ILLNESS Ms. Dixon is a 61-year-old woman with long history of relapsing ___multiple sclerosis. She has been on Aubagio for the past year. She has been having increasing exacerbations. She developed chest pain as well as severe weakness and presented to the emergency room. Initial troponin was negative. EKG no acute changes. She was found to have leukocytosis with bandemia and urinary tract infection. PAST MEDICAL HISTORY 1. Multiple sclerosis, 2. Hypertension, 3. Hyperlipidemia, 4. Restless leg syndrome 5. GE reflux 6. Hypothyroidism, 7. History of breast cancer 8. History of trigeminal neuralgia 9. Sleep apnea 10. Breast lumpectomy 11. Tonsillectomy, 12. Appendectomy 13. Radiosurgery left trigeminal nerve for neuralgia 14. Esophageal stricture dilatation 15. Left carpal tunnel surgery. MEDICATIONS At home, 1. Aubagio mg daily. 2. Synthroid. 3. Seroquel. 4. Carvedilol. 5. Effexor. 6. Flexeril. 7. Potassium. 8. Klonopin. 9. Losartan. 10. Pravachol. 11. Protonix. 12. Requip 3 mg at bedtime. 13. Zantac. 14. Cymbalta 60 mg daily. ALLERGIES KIWI ADHESIVES BETADINE LATEX. NEUROLOGIC EXAMINATION Blood pressure is 133/75, pulse 83, respiratory rate is 20. Higher cortical functions normal. Cranial nerves II-XII are normal in detail. Motor exam - she is weak in both upper and lower extremities, 4/5 at the upper extremities, 3/5 lower extremities. Reflexes are symmetric. IMAGING STUDIES MRI of the brain shows multiple plaques consistent with MS, none of which enhance. LABORATORY DATA White count 12,500 with a left shift with 11% bands, hemoglobin 13, hematocrit 38.7%, platelet count 312,000. Sodium is 139, potassium four, chloride 105, CO2 is 23.2. The BUN is 20, creatinine 1.16, glucose is 118. Urinalysis - pH is 5.5, specific gravity is 1.017, protein is 30, 15 RBCs seen, innumerable WBCs. IMPRESSION 1. Multiple sclerosis exacerbation. 2. Urinary tract infection. RECOMMENDATIONS We will start the patient on IV Solu-Medrol because of her significant weakness in the legs, 1 gram daily for 3 days. MD TIFFANI Elena/ /7:09 PM /9:59 PM
[2017-01-24 00:53] VITALS: BP 113/69; PULSE 75; RESP 18; TEMP 98.7; O2SAT 93
[2017-01-24] MEDS: HEPARIN SODIUM - SQ 10,000 UNITS/ML VIAL SQ SCH ×2 (01:30→12:00)
[2017-01-24] MEDS: LACTATED RINGER'S 1000 ML INJ 1,000 ML IV SCH (01:30)
[2017-01-24] MEDS: MORPHINE SULFATE 4 MG/ML INJ IV PUSH PRN ×2 (01:30→04:54)
[2017-01-24 04:39] VITALS: BP 118/75; PULSE 86; RESP 18; TEMP 97.8; O2SAT 92
[2017-01-24] MEDS ORDERED: LEVOTHYROXINE SODIUM 112 MCG TAB PO SCH (06:00)
[2017-01-24 07:01] LABS: AUTOMATED NEUTROPHIL # 3.6 TH/MM3 (1.8-7.7); BASOPHIL % 0.2 % (0.0-2.0); EOSINOPHIL % 0.1 % (0.0-4.0); HEMATOCRIT 35.4 % (35.0-46.0); HEMO FLAGS DIFF FINAL; LYMPH % 15.5 % (9.0-44.0); LYMPHOCYTE # 0.7 TH/MM3 (1.0-4.8); MEAN CELL VOLUME 86.9 FL (80.0-100.0); MEAN CORPUSCULAR HEMOGLOBIN 28.4 PG (27.0-34.0); MEAN CORPUSCULAR HGB CONC 32.7 % (32.0-36.0); MONO % 1.2 % (0.0-8.0); PLATELET COUNT 225 TH/MM3 (150-450); RED BLOOD COUNT 4.07 MIL/MM3 (4.00-5.30); RED CELL DISTRIBUTION WIDTH 15.6 % (11.6-17.2); WHITE BLOOD COUNT 4.4 TH/MM3 (4.0-11.0)
[2017-01-24 07:20] LABS: BICARBONATE 22.4 MEQ/L (21.0-32.0); POTASSIUM 3.9 MEQ/L (3.5-5.1)
[2017-01-24 08:01] VITALS: BP 102/62; PULSE 89; RESP 20; TEMP 96; O2SAT 92
--- NOTE | 2017-01-24 08:19 | HHI.FF ---
Face to Face Verification Diagnosis: (1) Weakness (2) Joint pain Physical Therapy Order: Evaluate and Treat Home Health Nursing Order: Medical education Nursing assessment with vital signs I have seen patient Sharon Dixon on 01/24/17. My clinical findings support the need for the requested home health care services because: Need for psychosocial assistance Impaired cognition/judgement I certify that my clinical findings support that this patient is homebound because: Impaired cognitive ability/safety Unsteady gait/balance Need for psychosocial assistance Pamela Sanchez [facility] Jan 24, 2017 08:19
--- NOTE | 2017-01-24 08:24 | HHI.PR ---
Review/Management Diagnosis MS---probable pseudoexacerbation as is much improved UTI Plan One more dose of iv solumedrol this am then d/c solumedrol ok to discharge from neurologic standpoint when ok with medicine service Follow up with me as outpatient next week Diagnosis/Plan: Subjective Subjective Comments No acute events reported No headache Pt feels much improved in LE strength Still with Bilateral foot pain Active Medications Current Medications Medications (Trade) Dose Ordered Sig/Abril Route Start Time Stop Time Status Last Admin (Lr 1000 ml Inj) 1,000 ml @ 50 mls/hr Q20H IV 01/23/17 12:00 01/24/17 01:30 (NS Flush) 2 ml UNSCH PRN IV FLUSH 01/23/17 11:00 01/23/17 19:33 (NS Flush) 2 ml BID IV FLUSH 01/23/17 21:00 01/23/17 19:33 (Tylenol) 650 mg Q4H PRN PO 01/23/17 11:00 (Zofran Inj) 4 mg Q6H PRN IVP 01/23/17 11:00 (Heparin Inj) 5,000 units Q12H SQ 01/23/17 12:00 01/24/17 01:30 Naloxone HCl 0.4 mg 0.4 mg UNSCH PRN IV 01/23/17 11:00 (Rocephin Inj/NS Inj) 100 ml @ 200 mls/hr Q24H IV 01/24/17 10:00 (Coreg) 6.25 mg BID PO 01/23/17 21:00 01/23/17 19:34 (Vitamin D3) 2,000 units DAILY PO 01/24/17 09:00 (Flexeril) 10 mg TID PO 01/23/17 13:00 01/23/17 17:31 (Cymbalta Dr) 60 mg HS PO 01/23/17 21:00 01/23/17 19:35 (Synthroid) 112 mcg DAILY@06 PO 01/24/17 06:00 01/24/17 04:54 (Cozaar) 100 mg DAILY PO 01/24/17 09:00 (Singulair) 10 mg DAILY PO 01/24/17 09:00 (Protonix) 20 mg BID PO 01/23/17 21:00 01/23/17 19:34 (Pravachol) 20 mg DAILY PO 01/24/17 09:00 (Oscal-D 250-125) 500 mg DAILY PO 01/24/17 09:00 (SEROquel) 50 mg BID PO 01/23/17 21:00 01/23/17 19:34 (Pepcid) 20 mg BID PO 01/23/17 13:15 01/23/17 19:34 (Requip) 3 mg HS PO 01/23/17 21:00 01/23/17 19:34 Patient Own Medication PT OWN MED: Teriflunomide (Aubagio)... DAILY PO 01/24/17 09:00 Future Hold (Effexor Xr) 150 mg DAILY PO 01/24/17 09:00 (Morphine Inj) 2 mg Q3H PRN IV PUSH 01/23/17 17:00 01/24/17 04:54 ([place] 7.5-325 Mg) 1 tab Q4H PRN PO 01/23/17 17:00 01/23/17 17:32 Aspirin 81 mg 81 mg DAILY PO 01/24/17 09:00 (SoluMEDROL INJ/ D5W 100 ml Inj) 100 ml @ 200 mls/hr DAILY IV 01/23/17 20:00 01/23/17 20:37 Allergies Allergies Coded Allergies Kiwi (Verified Allergy, Severe, THROAT SWELLS, 01/23/17) Adhesives (Verified Allergy, Intermediate, BLISTERS, REDNESS AT PORT SITE, ITCHING, 01/23/17) Betadine (Verified Allergy, Intermediate, BLISTERS, REDNESS AT PORT SITE, 01/23) Latex (Verified Allergy, Intermediate, BLISTERS, 01/23/17) Exam I&O / VS Vital Signs Date Time Temp Pulse Resp B/P Pulse Ox O2 Delivery O2 Flow Rate FiO2 01/24/17 08:01 96.0 89 20 102/62 92 01/24/17 05:00 16 01/24/17 04:39 97.8 86 18 118/75 92 01/24/17 00:53 98.7 75 18 113/69 93 01/23/17 21:07 73 01/23/17 20:07 16 01/23/17 19:45 98.4 76 18 121/73 97 01/23/17 14:16 97.1 83 20 133/75 95 01/23/17 12:29 97.8 76 17 120/76 100 01/23/17 10:01 74 17 118/78 100 Room Air 01/23/17 09:00 74 18 119/79 100 Room Air 128/75 01/23/17 09:00 100 Room Air 01/23/17 08:53 18 100 Room Air 01/23/17 08:53 89 18 100 Room Air 01/23/17 08:41 97.9 104 20 109/69 100 Room Air Exam Comments alert, speech normal MOTOR--4+/5 bilateral LE--improved from last PM Objective Micro and Labs Laboratory Tests Test 01/23/17 01/23/17 01/23/17 01/23/17 09:05 09:08 09:10 09:15 White Blood Count 12.5 Red Blood Count 4.48 Hemoglobin 13.0 Hematocrit 38.7 Mean Corpuscular Volume 86.4 Mean Corpuscular Hemoglobin 29.0 Mean Corpuscular Hemoglobin 33.5 Concent Red Cell Distribution Width 15.5 Platelet Count 312 Mean Platelet Volume 7.1 Neutrophils (%) (Auto) 77.2 Lymphocytes (%) (Auto) 14.7 Monocytes (%) (Auto) 6.2 Eosinophils (%) (Auto) 1.1 Basophils (%) (Auto) 0.8 Neutrophils # (Auto) 9.7 Lymphocytes # (Auto) 1.8 Monocytes # (Auto) 0.8 Eosinophils # (Auto) 0.1 Basophils # (Auto) 0.1 CBC Comment AUTO DIFF Differential Total Cells 100 Counted Neutrophils % (Manual) 63 Band Neutrophils % 11 Lymphocytes % 15 Monocytes % 6 Eosinophils % 1 Basophils % 2 Neutrophils # (Manual) 9.5 Myelocytes 2 Differential Comment FINAL DIFF MANUAL Platelet Estimate NORMAL Platelet Morphology Comment NORMAL Red Cell Morphology Comment NORMAL B-Type Natriuretic Peptide 21 Prothrombin Time 11.0 Prothromb Time International 1.0 Ratio Activated Partial 25.9 Thromboplast Time D-Dimer Quantitative (PE/DVT) 0.51 Sodium Level 139 Potassium Level 4.0 Chloride Level 105 Carbon Dioxide Level 23.2 Anion Gap 11 Blood Urea Nitrogen 20 Creatinine 1.16 Estimat Glomerular Filtration 48 Rate Random Glucose 118 Calcium Level 10.2 Magnesium Level 1.9 Total Bilirubin 0.2 Aspartate Amino Transf 17 (AST/SGOT) Alanine Aminotransferase 23 (ALT/SGPT) Alkaline Phosphatase 157 Troponin I LESS THAN 0.02 Total Protein 6.9 Albumin 3.6 Urine Color YELLOW Urine Turbidity CLOUDY Urine pH 5.5 Urine Specific [place] 1.017 Urine Protein 30 Urine Glucose (UA) NEG Urine Ketones NEG Urine Occult Blood TRACE Urine Nitrite POS Urine Bilirubin NEG Urine Urobilinogen 0.2 Urine Leukocyte Esterase SMALL Urine RBC 15 Urine WBC Urine WBC Clumps MANY Urine Squamous Epithelial <1 Cells Urine Bacteria MOD Urine Hyaline Casts 4 Urine Mucus FEW Microscopic Urinalysis Comment CATH-CULTURE IND Urine Collection Time 0910 Test 01/23/17 01/23/17 01/23/17 01/24/17 10:36 11:30 16:45 06:10 Lactic Acid Level 0.5 Total Creatine Kinase 69 70 Troponin I LESS THAN 0.02 LESS THAN 0.02 White Blood Count 4.4 Red Blood Count 4.07 Hemoglobin 11.6 Hematocrit 35.4 Mean Corpuscular Volume 86.9 Mean Corpuscular Hemoglobin 28.4 Mean Corpuscular Hemoglobin 32.7 Concent Red Cell Distribution Width 15.6 Platelet Count 225 Mean Platelet Volume 7.1 Neutrophils (%) (Auto) 83.0 Lymphocytes (%) (Auto) 15.5 Monocytes (%) (Auto) 1.2 Eosinophils (%) (Auto) 0.1 Basophils (%) (Auto) 0.2 Neutrophils # (Auto) 3.6 Lymphocytes # (Auto) 0.7 Monocytes # (Auto) 0.1 Eosinophils # (Auto) 0.0 Basophils # (Auto) 0.0 CBC Comment DIFF FINAL Differential Comment Sodium Level 139 Potassium Level 3.9 Chloride Level 108 Carbon Dioxide Level 22.4 Anion Gap 9 Blood Urea Nitrogen 15 Creatinine 1.20 Estimat Glomerular Filtration 46 Rate Random Glucose 228 Calcium Level 9.1 Date/Time Procedure Status Source Growth 01/23/17 10:36 Aerobic Blood Culture Received Blood Peripheral Pending 01/23/17 10:36 Anaerobic Blood Culture Received Blood Peripheral Pending 01/23/17 09:15 Urine Culture Received Urine Catheterized Urine Pending Luis F Asif PhD Jan 24, 2017 08:24
[2017-01-24] MEDS ORDERED: POTASSIUM CHLORIDE 10 MEQ PO SCH (09:00)
[2017-01-24] MEDS: SODIUM CHLORIDE 0.9% FLUSH 10 ML FLUSH IV FLUSH SCH (09:00)
[2017-01-24] MEDS ORDERED: CALCIUM/VITAMIN D 250 MG/125 U TAB PO SCH (09:00)
[2017-01-24] MEDS ORDERED: CHOLECALCIFEROL (VIT D3) 1000 UNIT TAB PO SCH (09:00)
[2017-01-24] MEDS ORDERED: TERIFLUNOMIDE 14 MG PO SCH (09:00)
[2017-01-24] MEDS ORDERED: PRAVASTATIN SOD 20 MG TAB PO SCH (09:00)
[2017-01-24] MEDS: QUEtiapine FUMARATE 100 MG TAB PO SCH (09:00)
[2017-01-24] MEDS ORDERED: MONTELUKAST SODIUM 10 MG TAB PO SCH (09:00)
[2017-01-24] MEDS ORDERED: VENLAFAXINE HCL XR 75 MG CAP PO SCH (09:00)
[2017-01-24] MEDS ORDERED: LOSARTAN 50 MG TAB PO SCH (09:00)
[2017-01-24] MEDS ORDERED: ASPIRIN EC 81 MG TABEC PO SCH (09:00)
[2017-01-24] MEDS: CARVEDILOL 6.25 MG TAB PO SCH (09:27)
[2017-01-24] MEDS: PANTOPRAZOLE SOD 20 MG DELAYED RELEASE TAB PO SCH (09:27)
[2017-01-24] MEDS: FAMOTIDINE 20 MG TAB PO SCH (09:27)
[2017-01-24] MEDS: CYCLOBENZAPRINE HCL 10 MG TAB PO SCH ×2 (09:28→13:00)
[2017-01-24] MEDS: ACETAMINOPHEN/HYDROcodone 325 MG/7.5 MG TAB PO PRN (09:29)
--- NOTE | 2017-01-24 09:30 | HHI.PR ---
Subjective Remarks joint pain better with Morphine requesting PO for discharge no cp no sob no acute changes overnight getting out of bed with walker, strength to legs better able to lift legs better anxious to go home Objective Objective Results - Vital Signs Date Time Temp Pulse Resp B/P Pulse Ox O2 Delivery O2 Flow Rate FiO2 01/24/17 08:01 96.0 89 20 102/62 92 01/24/17 05:00 16 01/24/17 04:39 97.8 86 18 118/75 92 01/24/17 00:53 98.7 75 18 113/69 93 01/23/17 21:07 73 01/23/17 20:07 16 01/23/17 19:45 98.4 76 18 121/73 97 01/23/17 14:16 97.1 83 20 133/75 95 01/23/17 12:29 97.8 76 17 120/76 100 01/23/17 10:01 74 17 118/78 100 Room Air Result Diagram: 01/24/17 0610 01/24/17 0610 Imaging Last Impressions Chest X-Ray 01/23/17 0859 Signed Impressions: Service Date/Time: January 09:08 - CONCLUSION: No acute disease. Simon Contreras MD Brain MRI 01/23/17 0000 Signed Impressions: Service Date/Time: January 11:48 - CONCLUSION: 1. Multiple punctate areas of increased signal in the deep white matter several which are perpendicular to the ventricular system and could represent areas of demyelination. There is no abnormal enhancement. 2. No acute hemorrhage, mass or evidence of infarction. Simon Contreras MD Other Results Laboratory Tests Test 01/23/17 01/23/17 01/23/17 01/24/17 10:36 11:30 16:45 06:10 Lactic Acid Level 0.5 Total Creatine Kinase 69 70 Troponin I LESS THAN 0.02 LESS THAN 0.02 White Blood Count 4.4 Red Blood Count 4.07 Hemoglobin 11.6 Hematocrit 35.4 Mean Corpuscular Volume 86.9 Mean Corpuscular Hemoglobin 28.4 Mean Corpuscular Hemoglobin 32.7 Concent Red Cell Distribution Width 15.6 Platelet Count 225 Mean Platelet Volume 7.1 Neutrophils (%) (Auto) 83.0 Lymphocytes (%) (Auto) 15.5 Monocytes (%) (Auto) 1.2 Eosinophils (%) (Auto) 0.1 Basophils (%) (Auto) 0.2 Neutrophils # (Auto) 3.6 Lymphocytes # (Auto) 0.7 Monocytes # (Auto) 0.1 Eosinophils # (Auto) 0.0 Basophils # (Auto) 0.0 CBC Comment DIFF FINAL Differential Comment Sodium Level 139 Potassium Level 3.9 Chloride Level 108 Carbon Dioxide Level 22.4 Anion Gap 9 Blood Urea Nitrogen 15 Creatinine 1.20 Estimat Glomerular Filtration 46 Rate Random Glucose 228 Calcium Level 9.1 Date/Time Procedure Status Source Growth 01/23/17 10:36 Aerobic Blood Culture Received Blood Peripheral Pending 01/23/17 10:36 Anaerobic Blood Culture Received Blood Peripheral Pending 01/23/17 09:15 Urine Culture Received Urine Catheterized Urine Pending ROS General: Weakness Neuro/MS: Other (joint pain ) Physical Exam Physical Exam GENERAL: This is a well-nourished, well-developed patient, in no apparent distress. SKIN: No rashes, ecchymoses or lesions. Cool and dry. HEAD: Atraumatic. Normocephalic. No temporal or scalp tenderness. EYES: Pupils equal round and reactive. Extraocular motions intact. No scleral icterus. No injection or drainage. ENT: Nose without bleeding, purulent drainage or septal hematoma. Throat without erythema, tonsillar hypertrophy or exudate. Uvula midline. Airway patent. NECK: Trachea midline. No JVD or lymphadenopathy. Supple, nontender, no meningeal signs. CARDIOVASCULAR: Regular rate and rhythm without murmurs, gallops, or rubs. RESPIRATORY: Clear to auscultation. Breath sounds equal bilaterally. No wheezes , rales, or rhonchi. GASTROINTESTINAL: Abdomen soft, non-tender, nondistended. No hepato-splenomegaly , or palpable masses. No guarding. MUSCULOSKELETAL: Extremities without clubbing, cyanosis, or edema. No joint tenderness, effusion, or edema noted. No calf tenderness. Negative Homans sign bilaterally. NEUROLOGICAL: Awake, alert oriented 3. Upper extremity strength 4 out of 5. Lower extremity strength 4 out of 5. No sensory deficit. No focal deficits. No ataxia with [id number]. Urinary Catheter: No A/P Diagnosis: (1) Chest pain (2) Multiple sclerosis (3) Hypertension (4) GERD (gastroesophageal reflux disease) (5) Hypothyroidism (6) Hyperlipidemia (7) Depression (8) History of tobacco use (9) Joint pain Plan: Knees and ankles (10) Weakness (11) UTI (urinary tract infection) (12) CKD (chronic kidney disease) stage 3, GFR 30-59 ml/min Assessment and Plan 61-year-old female with history of MS, hypertension, hyperlipidemia. Presented to emergency room complaining of chest pressure associated with lightheadedness and shortness of breath. Initial serial troponin negative, EKG did not reveal any acute findings. -Cardiology consultation-PENDING Continue with serial cardia enzymes Continue with aspirin -Continue with statin Leukocytosis with bandemia, + UTI, self catherizes. WBC back to normal. -Continue with hydration Continue with antibiotics, follow urine culture-pending -pt. anxious to go home, will f/u on UC for PO abx MS, currently on Aubagio complaining of increased joint pain and generalized weakness. Poss. pseudoexacerbation Brain MRI has been completed, results reviewed Continue with physical and occupational therapy Neurology has been consulted, input appreciated, Solumedrol 1000 mg IV given yesterday. Pt.improved today, able to lift legs. D/W Dr. Asif,she will received one more dose today and then he will arrange for pt. to have 3rd dose at home. Pt. ok to go if medically clear. -Pain management-requested Morphine PO. D/W pt. at length, agreeable with going home with Percocet. Dr. Asif agreeable with this, recommends to avoid Morphine PO he will work up joint pain as OP as this has been a problem for last 2 years. Poss. associated with MS Hypertension, stable continue home medications Hyperlipidemia, stable -continue home medication CKD is stage III, stable Continue with hydration Follow BMP Avoid nephrotoxic agent Heparin for DVT prophylaxis Protonix for GI prophylaxis CM consult for DC planning, C with PT will f/u on urine cultures results, and discharge this afternoon overall improved, able to get out of bed with walker F/U Dr. Asif next week Diet -heart healthy Activity-as tolerated D/W RN D/W Dr. Asif D/W Dr. Hinojosa D/W pt D/W CM This patient was seen by myself and Dr. Hinojosa, this note is written on his behalf Problem Qualifiers (1) Chest pain: Qualified Code: R07.9 - Chest pain, unspecified type (2) Hypertension: Qualified Code: I10 - Essential hypertension (3) GERD (gastroesophageal reflux disease): Qualified Code: K21.9 - Gastroesophageal reflux disease, esophagitis presence not specified (4) Hypothyroidism: Qualified Code: E03.9 - Hypothyroidism, unspecified type (5) Hyperlipidemia: Qualified Code: E78.4 - Other hyperlipidemia (6) Depression: (7) Joint pain: Qualified Code: M25.571 - Arthralgia of both ankles (8) UTI (urinary tract infection): Qualified Code: N39.0 - Urinary tract infection without hematuria, site unspecified Pamela Sanchez [facility] Jan 24, 2017 09:30
--- NOTE | 2017-01-24 09:35 | HHI.DCPOC ---
Discharge Care Plan Diagnosis: (1) Joint pain (2) Chest pain (3) Hypertension (4) History of tobacco use (5) Depression (6) Hyperlipidemia (7) Weakness (8) UTI (urinary tract infection) (9) CKD (chronic kidney disease) stage 3, GFR 30-59 ml/min Your Health Problems Are: Difficulty with ADL Chest Pain Shortness of Breath Goals to Promote Your Health * To prevent worsening of your condition and complications * To maintain your health at the optimal level Directions to Meet Your Goals Take your medications as prescribed Follow your dietary instruction Follow activity as directed Keep your appointments as scheduled Take your immunizations and boosters as scheduled If your symptoms worsen call your PCP, if no PCP go to Urgent Care Center or Emergency Room Smoking is Dangerous to Your Health. Avoid second hand smoke Call the 24-hour hour crisis hotline for domestic abuse at Pamela Sanchez. [facility] Jan 24, 2017 09:35
[2017-01-24] MEDS ORDERED: methylPREDNISolone SO SUCC INJ 1,000 MG in DEXTROSE 5% IN WATER INJ 250 ML IV ONE ×2 (10:00)
[2017-01-24] MEDS ORDERED: cefTRIAXone INJ 1,000 MG in SODIUM CHLORIDE 0.9% INJ 100 ML IV SCH (10:00)
[2017-01-24] MEDS ORDERED: PERC5TAB12 PO (11:03)
[2017-01-24 12:45] VITALS: BP 112/73; PULSE 95; RESP 18; TEMP 96.3; O2SAT 94
[2017-01-24] MEDS ORDERED: PILL SPLITTER OTHER PRN (13:00)
--- NOTE | 2017-01-24 13:14 | MB ---
cc: PAMELA WEINER HUMAYUN A. M.D. QUADRAT, OTAKAR SCOTT, JAMES A. M.D. DATE OF CONSULTATION 01/24/2017 REASON FOR CONSULTATION Thank you, Dr. Pamela Weiner for asking us see this very pleasant 61-year white female who had some chest pressure. She, unfortunately, has a very complex history with multiple problems including hypertension, hyperlipidemia, GE reflux, multiple sclerosis breast cancer, trigeminal neuralgia. She presented with chest pain and shortness of breath. Her cardiac enzymes are negative. She does have bandemia and has evidence of what appears to be a marked urinary tract infection. CBC was positive. It was also of concern that this might be a multiple sclerosis exacerbation. At this time, the patient looks unwell, but denies any chest pains or shortness breath. REVIEW OF SYSTEMS As above, denies seizure, headaches, vomiting, diarrhea, dysuria or hematuria, otherwise a 12-point review of systems is negative. PAST MEDICAL HISTORY Positive for: 1. GE reflux 2. Multiple sclerosis 3. Hypertension 4. Chronic kidney disease 5. Apparently a negative stress test in 2014. 6. Stereotactic plastic surgery on the left trigeminal nerve 7. Bilateral breast lumpectomies 8. Tonsillectomy 9. Carpal tunnel surgery 10. Lasik eye surgery 11. Endoscopy with esophageal stricture dilation MEDICATIONS At home include: 1. Cymbalta 2. Zantac 3. Vitamins 4. Singulair 5. Requip 6. Reclast 7. Protonix 8. Pravachol 9. Losartan 10. Klonopin 11. Potassium chloride 12. Flexeril 13. Carvedilol 6.25 p.o. b.i.d. 14. Aubagio 15. Synthroid 16. Seroquel ALLERGIES Include KIWI FRUIT, ADHESIVE, BETADINE AND LATEX. FAMILY HISTORY Positive for father having had bypass surgery. SOCIAL HISTORY , grown children, quit smoking in 1990. No alcohol. No drugs. Usually uses a walker and cane. PHYSICAL EXAM On examination, this a frail looking lady who looks older than her stated age. VITAL SIGNS: Pulse 73, blood pressure 113/68, respirations 18. EYES: No xanthelasma. Mouth shows no cyanosis or pallor. CARDIAC: She had two heart sounds, no murmurs. CHEST: Clear. ABDOMEN: Soft, no hepatosplenomegaly. EXTREMITIES: Legs reveal no evidence of edema. NEUROLOGIC: Grossly in tact. LABORATORY TESTS Potassium 4.0, BUN 20, creatinine 1.16, GFR 48, AST/ALT normal, alkaline phosphatase 157. Troponin x3 less than 0.02, white count 12.5 up from 12.4, hemoglobin 13.0, platelet 312,000. ASSESSMENT/PLAN This is a very ill patient with a possible urinary tract infection. Blood cultures are negative. Urine cultures currently are pending. She also may have a multiple sclerosis exacerbation. As far as cardiac-chavez, she does not have any chest pains or shortness of breath. EKG was read as normal and no change from prior and her troponin is negative. Further workup will be done by a regular weight tester, Dr. Taylor, as an outpatient. Thank you for asking us to see this very pleasant lady. Stevie Wild MD, FRCP,FACC JOSE LUIS/ROSALINDA /11:45 AM /12:59 PM
[2017-01-24] MEDS ORDERED: BACT800T5 PO (13:50)
[2017-01-24] MEDS ORDERED: FAMOTIDINE 20 MG TAB PO SCH (21:00)
[2017-03-21] MEDS ORDERED: CHOL1CAP61 PO (07:55)
[2017-03-21] MEDS ORDERED: AZEL1SPR2 EACH NARE (07:55)
[2017-03-21] MEDS ORDERED: MACR100C3 PO (07:55)
[2017-03-21] MEDS ORDERED: FLUT1SPR5 EACH NARE (07:55)
== END 2017-01-24 15:46 | disposition home health service (06) ==
LOC: NEPC 08:37 → UNDOADMOB 10:48 → NEDA 10:48 → INTOOBSV 10:48 → NEDA 11:03 → NEPFCDU 12:47 → OBSVTOIN 01-24 07:35 → INTOOBSV 01-24 07:35 → UNDODISOB 01-24 15:46
PROVIDERS: ADMIT Specialist; ATTEND Specialist
DX: N39.0 Urinary tract infection, site not specified (principal); B95.61 Methicillin susceptible Staphylococcus aureus infection as the cause of diseases classified elsewhere; I12.9 Hypertensive chronic kidney disease with stage 1 through stage 4 chronic kidney disease, or unspecified chronic kidney disease; N18.3 Chronic kidney disease, stage 3 (moderate); G35 Multiple sclerosis; F32.9 Major depressive disorder, single episode, unspecified; K21.9 Gastro-esophageal reflux disease without esophagitis; E03.9 Hypothyroidism, unspecified; E78.5 Hyperlipidemia, unspecified; G25.81 Restless legs syndrome; R06.02 Shortness of breath; R33.9 Retention of urine, unspecified; Z85.3 Personal history of malignant neoplasm of breast; Z87.891 Personal history of nicotine dependence
CPT/HCPCS: 70553; 71010; 80048; 80053; 81001; 82550; 83605; 83735; 83880; 84484; 85007; 85025; 85027; 85379; 85610; 85730; 86403; 87040; 87077; 87086; 87186; 93005; 96361; 96374; 97162; 99285; A9579; G0378; G8987; G8988; J0696; J1644; J2270; J2930; J7030; J7060; J7120; P9612

== ENCOUNTER → 2017-03-21 | Day surgery (SDC) | payer MEDICARE, BC ==
[~2017-03-21] MED LIST changes: +AZEL1SPR2 EACH NARE; +BACT800T5 PO; +BUPIVACAINE HCL PF 0.75% 30 ML VIAL ONE; +CHOL1CAP61 PO; -CYAN1000P IM; +FLUT1SPR5 EACH NARE; -KETO10 PO; +MACR100C3 PO; +PERC5TAB12 PO; +PROPOFOL 200 MG/20 ML AMP IV ONE; +TRIAMCINOLONE ACETONIDE 40 MG/ML VIAL I-ARTICULR ONE
--- NOTE | 2017-03-22 22:21 | M6 ---
cc: WILFRIDO OBREGON M.D. DATE 03/21/2017 1956 PROCEDURE Fluoroscopically guided injection bilateral lumbar facet joints (bilateral L3-4, L4-5 and L5-S1 facet joints). History and physical was completed and signed. Consent was signed. Procedure site was marked. Medications were listed and reconciled. Pain score was recorded. Allergies were noted. Time out was taken. Fluoroscopy time was recorded where applicable. Sedation was administered or directed by Dr. Obregon. The patient was given oxygen. The patient was monitored by a registered nurse. Total procedure time was greater than 15 minutes. IV was started, blood pressure cuff, pulse oximeter and EKG were applied. The patient was placed in the prone position on a Lester table sedated with small amounts of propofol titrated to effect. Vital signs were monitored and remained stable throughout the procedure. The lumbar area was prepped with alcohol and 10% Betadine solution and draped with sterile drapes. Fluoroscopy was used in a Kenneth dog view to clearly visualize the bilateral lumbar facet joints at L3-4, L4-5 and L5-S1. Separate sterile 3-1/2-inch 25-gauge spinal needles were advanced into each joint under fluoroscopic guidance. There was negative aspiration for blood or any other type of fluid. At each location, the patient was given 1 mL of Marcaine 0.75% which contained 10 mg of Kenalog. Following the procedure, the patient was taken to the recovery room with stable vital signs. She will be evaluated immediately and with followup to determine if she has a subjective decrease in her usual pain and a corresponding objective increase in her functional capabilities. W. MD SANTA Salazar/ /8:28 AM /10:14 PM
== END | disposition home or self-care (01) ==
LOC: PHSDC 07:01
PROVIDERS: ATTEND Pain Medicine Interventional Pain Medicine
DX: M54.5 Low back pain (principal)
CPT/HCPCS: 64493; 64494; 64495; 99152; J1642; J3301

== ENCOUNTER 2017-05-05 22:52 | Emergency (ER) | payer MEDICARE, BC ==
[~2017-05-05 22:52] MED LIST changes: -BACT800T5 PO; -BUPIVACAINE HCL PF 0.75% 30 ML VIAL ONE; -CYMB60CA PO; -PROPOFOL 200 MG/20 ML AMP IV ONE; -TERI14TA PO; -TRIAMCINOLONE ACETONIDE 40 MG/ML VIAL I-ARTICULR ONE; -VITA200012 PO
[2017-05-05 23:03] VITALS: BP 105/67; RESP 28; TEMP 98.4; O2SAT 95
[2017-05-05] MEDS ORDERED: methylPREDNISolone SOD SUCC 125 MG/2 ML VIAL IVP ONE (23:15)
[2017-05-05] MEDS ORDERED: FAMOTIDINE 20 MG/2 ML VIAL IV PUSH ONE (23:15)
[2017-05-05] MEDS ORDERED: diphenhydrAMINE HCL 50 MG/ML VIAL IVP ONE (23:15)
[2017-05-05] MEDS ORDERED: SODIUM CHLORIDE 0.9% FLUSH 10 ML FLUSH IV FLUSH PRN (23:15)
[2017-05-05 23:28] VITALS: O2SAT 96
[2017-05-05 23:33] LABS: BASOPHIL # 0.1 TH/MM3 (0-0.2); BASOPHIL % 0.5 % (0.0-2.0); EOSINOPHIL # 0.1 TH/MM3 (0-0.4); EOSINOPHIL % 1.1 % (0.0-4.0); HEMATOCRIT 44.7 % (35.0-46.0); HEMO FLAGS DIFF FINAL; LYMPH % 19.8 % (9.0-44.0); MEAN CELL VOLUME 86.9 FL (80.0-100.0); MEAN CORPUSCULAR HEMOGLOBIN 28.8 PG (27.0-34.0); MEAN CORPUSCULAR HGB CONC 33.1 % (32.0-36.0); MONO % 8.3 % (0.0-8.0); NEUT % 70.3 % (16.0-70.0); PLATELET COUNT 350 TH/MM3 (150-450); RED BLOOD COUNT 5.14 MIL/MM3 (4.00-5.30); RED CELL DISTRIBUTION WIDTH 14.4 % (11.6-17.2)
--- NOTE | 2017-05-05 23:33 | PD ---
HPI Chief Complaint: Allergic/Adverse Reaction Time Seen by Provider: 23:03 Travel History International Travel<30 days: No Contact w/Intl Traveler<30days: No Traveled to known affect area: No History of Present Illness HPI 62-year-old female here for evaluation of possible allergic reaction. About 30 minutes prior to arrival the patient was outside walking her dog when she was bitten the foot by ants. Shortly after she began to develop hives, tongue and lip swelling, and pruritus. She took 2 Benadryl at home, however the symptoms have not improved, so she is here for evaluation. She states that there is slight difficulty swallowing. No difficulty with breathing. No abdominal pain , nausea, or vomiting. No chest pain or dyspnea. She has never had a reaction like this to anything before, however she does state an allergy to adhesives, Betadine, Kiwi, and latex. PFSH Past Medical History Autoimmune Disease: Yes (MULTIPLE SCLEROSIS) Blood Disorders: No Anxiety: Yes Depression: Yes Heart Rhythm Problems: Yes Cancer: Yes Cardiovascular Problems: Yes High Cholesterol: Yes Chemotherapy: Yes (in the past for breast ca) Congestive Heart Failure: No Diabetes: No Diminished Hearing: No Endocrine: Yes Gastrointestinal Disorders: Yes (GASTROPARESIS, ACID REFLUX, HX OF ESOPHAGEAL STRICTURE/DILATION) Genitourinary: No Hepatitis: No Hiatal Hernia: Yes Hypertension: Yes Immune Disorder: Yes (MULTIPLE SCLEROSIS) Implanted Vascular Access Dvce: Yes (R. SIDE POWER PORT) Musculoskeletal: Yes Neurologic: Yes Psychiatric: Yes Reproductive: No Respiratory: No Immunizations Current: Yes Migraines: Yes Radiation Therapy: Yes Thyroid Disease: Yes Tetanus Vaccination: Unknown Influenza Vaccination: No ?: Not Menopausal: Yes Past Surgical History Abdominal Surgery: Yes (APPENDECTOMY) AICD: No Appendectomy: Yes Cardiac Surgery: No Ear Surgery: No Endocrine Surgery: No Eye Surgery: Yes (LASIK 2000) Genitourinary Surgery: No Gynecologic Surgery: No Joint Replacement: No Neurologic Surgery: Yes (CARPAL TUNNEL L WRIST) Oral Surgery: Yes (TONSILLECTOMY) Pacemaker: No Thoracic Surgery: Yes (BILATERAL LUMPECTOMY WITH RADIATION L SIDE) Tonsillectomy: Yes Other Surgery: Yes (left mastectomy appendectomy, tonsilctomy, left carpal tunnel.) Social History Alcohol Use: No Tobacco Use: No Substance Use: No Allergies-Medications (Allergen,Severity, Reaction): Coded Allergies: Kiwi (Verified Allergy, Severe, THROAT SWELLS, 05/05/17) Adhesives (Verified Allergy, Intermediate, BLISTERS, REDNESS AT PORT SITE , ITCHING, 05/05/17) Betadine (Verified Allergy, Intermediate, BLISTERS, REDNESS AT PORT SITE, 05/05/17) Latex (Verified Allergy, Intermediate, BLISTERS, 05/05/17) Reported Meds & Prescriptions Reported Meds & Active Scripts Active Percocet (Oxycodone-Acetaminophen) 5-325 mg Tab 1 Tab PO Q6H PRN Reported Vitamin D3 Ultra Strength (Cholecalciferol) 5,000 Unit Cap 50,000 Units PO 2X MONTH Azelastine Nasal [place] (Azelastine HCl) 0.1% [place] 2 [place] EACH NARE BID Flonase Nasal [place] (Fluticasone Nasal [place]) 50 Mcg/Act [place] 100 Mcg EACH NARE BID Macrodantin (Nitrofurantoin Macrocrystal) 100 Mg Cap 100 Mg PO 3X WEEK Zantac (Ranitidine HCl) 300 Mg Tab 300 Mg PO DAILY Singulair (Montelukast Sodium) 10 Mg Tab 10 Mg PO DAILY Requip (Ropinirole) 3 Mg Tab 3 Mg PO HS Reclast Inj (Zoledronic Acid) 5 Mg/100 Ml Inj 5 Mg IV ONCE Protonix (Pantoprazole Sodium) 20 Mg Tab 20 Mg PO BID Pravachol (Pravastatin) 20 Mg Tab 20 Mg PO DAILY Losartan (Losartan Potassium) 100 Mg Tab 50 Mg PO DAILY Klonopin (Clonazepam) 0.5 Mg Tab 1.5 Mg PO QID Potassium Chloride 1 Pow Pow 10 Meq PO DAILY Flexeril (Cyclobenzaprine HCl) 10 Mg Tab 10 Mg PO TID Effexor (Venlafaxine HCl) 75 Mg Tab 150 Mg PO DAILY Carvedilol 12.5 Mg Tab 6.25 Mg PO BID Calcium 1000 + D (Calcium Carbonate-Cholecalciferol) 1,000-800 Mg-Unit Tab 2, 000 Tab PO DAILY Synthroid (Levothyroxine Sodium) 112 Mcg Tab 112 Mcg PO DAILY Seroquel XR (Quetiapine Fumarate) 50 Mg Tab 2 Tab PO HS Review of Systems Except as stated in HPI: all other systems reviewed are Neg Physical Exam Narrative GENERAL: Well-developed, well-nourished, awake, alert, no apparent distress. SKIN: Focused skin assessment warm/dry. Diffuse urticarial rash. HEAD: Atraumatic. Normocephalic. EYES: Pupils equal and round. No scleral icterus. No injection or drainage. ENT: Mucous membranes pink and moist. Mild upper and lower lip swelling. No tongue swelling. No drooling or stridor. Normal phonation. NECK: Trachea midline. No JVD. CARDIOVASCULAR: Regular rate and rhythm. RESPIRATORY: No accessory muscle use. Clear to auscultation. Breath sounds equal bilaterally. GASTROINTESTINAL: Abdomen soft, non-tender, nondistended. MUSCULOSKELETAL: No obvious deformities. No clubbing. No cyanosis. No edema. NEUROLOGICAL: Awake and alert. No obvious cranial nerve deficits. Motor grossly within normal limits. Normal speech. PSYCHIATRIC: Appropriate mood and affect; insight and judgment normal. Data Data Last Documented VS Vital Signs Date Time Temp Pulse Resp B/P Pulse Ox O2 Delivery O2 Flow Rate FiO2 05/05/17 23:28 96 Room Air 05/05/17 23:03 98.4 28 105/67 Orders Basic Metabolic Panel (Bmp) (05/05/17 23:06) Complete Blood Count With Diff (05/05/17 23:06) Ecg Monitoring (05/05/17 23:06) Iv Access Insert/Monitor (05/05/17 23:06) Oximetry (05/05/17 23:06) Diphenhydramine Inj (Benadryl Inj) (05/05/17 23:15) Methylprednisolone So Succ Inj (Solumedr (05/05/17 23:15) Famotidine Inj (Pepcid Inj) (05/05/17 23:15) Sodium Chloride 0.9% Flush (Ns Flush) (05/05/17 23:15) Labs Laboratory Tests Test 05/05/17 23:20 White Blood Count 10.0 TH/MM3 Red Blood Count 5.14 MIL/MM3 Hemoglobin 14.8 GM/DL Hematocrit 44.7 % Mean Corpuscular Volume 86.9 FL Mean Corpuscular Hemoglobin 28.8 PG Mean Corpuscular Hemoglobin 33.1 % Concent Red Cell Distribution Width 14.4 % Platelet Count 350 TH/MM3 Mean Platelet Volume 7.1 FL Neutrophils (%) (Auto) 70.3 % Lymphocytes (%) (Auto) 19.8 % Monocytes (%) (Auto) 8.3 % Eosinophils (%) (Auto) 1.1 % Basophils (%) (Auto) 0.5 % Neutrophils # (Auto) 7.0 TH/MM3 Lymphocytes # (Auto) 2.0 TH/MM3 Monocytes # (Auto) 0.8 TH/MM3 Eosinophils # (Auto) 0.1 TH/MM3 Basophils # (Auto) 0.1 TH/MM3 CBC Comment DIFF FINAL Differential Comment Sodium Level 140 MEQ/L Potassium Level 3.7 MEQ/L Chloride Level 108 MEQ/L Carbon Dioxide Level 22.5 MEQ/L Anion Gap 10 MEQ/L Blood Urea Nitrogen 23 MG/DL Creatinine 1.60 MG/DL Estimat Glomerular Filtration 33 ML/MIN Rate Random Glucose 121 MG/DL Calcium Level 8.3 MG/DL MDM Medical Decision Making Medical Screen Exam Complete: Yes Emergency Medical Condition: Yes Differential Diagnosis Allergic reaction, anaphylaxis Narrative Course Vital signs reviewed. Patient was given IV Solu-Medrol, 25 mg of IV Benadryl, and IV Pepcid shortly after arriving to the emergency department. Upon reassessment at 12:00 AM the patient's hives have resolved. She still has some upper lip swelling. There is no drooling or stridor. No tongue swelling. She is able to tolerate her secretions and clear liquids here in the emergency department. She states that her leg is still somewhat pruritic. She will be given another dose of Benadryl and will be observed in the emergency department for another hour or so. At this time patient was signed out to Dr. Oseguera to reassess the patient, and likely discharge her home if her symptoms remain resolved. Diagnosis Primary Impression: Allergic reaction Qualified Code: T78.40XA - Allergic reaction, initial encounter Boy Crystal MD May 05, 2017 23:33
[2017-05-05 23:43] LABS: POTASSIUM 3.7 MEQ/L (3.5-5.1)
[2017-05-05 23:46] LABS: BICARBONATE 22.5 MEQ/L (21.0-32.0)
[2017-05-06 00:33] VITALS: BP 104/74; PULSE 73; RESP 20; O2SAT 95
--- NOTE | 2017-05-06 00:48 | PD ---
Physical Exam Date Seen by Provider: May 06, 2017 Time Seen by Provider: 00:47 Narrative Accepted in transfer of care from Dr. Crystal GENERAL: Well-developed well-nourished female in no acute distress no respiratory distress; no stridor or hoarseness SKIN: Warm and dry. No urticaria no hives HEAD: Normocephalic. EYES: No scleral icterus. No injection or drainage. ENT: No angioedema; airway is patent NECK: Supple, trachea midline. No JVD or lymphadenopathy. CARDIOVASCULAR: Regular rate and rhythm without murmurs, gallops, or rubs. RESPIRATORY: Breath sounds equal bilaterally. No accessory muscle use. GASTROINTESTINAL: Abdomen soft, non-tender, nondistended. MUSCULOSKELETAL: No cyanosis, or edema. BACK: Nontender without obvious deformity. No CVA tenderness. Data Data Last Documented VS Vital Signs Date Time Temp Pulse Resp B/P Pulse Ox O2 Delivery O2 Flow Rate FiO2 05/06/17 01:55 80 20 96 Room Air 05/06/17 00:33 104/74 05/05/17 23:03 98.4 Orders Basic Metabolic Panel (Bmp) (05/05/17 23:06) Complete Blood Count With Diff (05/05/17 23:06) Ecg Monitoring (05/05/17 23:06) Iv Access Insert/Monitor (05/05/17 23:06) Oximetry (05/05/17 23:06) Diphenhydramine Inj (Benadryl Inj) (05/05/17 23:15) Methylprednisolone So Succ Inj (Solumedr (05/05/17 23:15) Famotidine Inj (Pepcid Inj) (05/05/17 23:15) Sodium Chloride 0.9% Flush (Ns Flush) (05/05/17 23:15) Labs Laboratory Tests Test 05/05/17 23:20 White Blood Count 10.0 TH/MM3 Red Blood Count 5.14 MIL/MM3 Hemoglobin 14.8 GM/DL Hematocrit 44.7 % Mean Corpuscular Volume 86.9 FL Mean Corpuscular Hemoglobin 28.8 PG Mean Corpuscular Hemoglobin 33.1 % Concent Red Cell Distribution Width 14.4 % Platelet Count 350 TH/MM3 Mean Platelet Volume 7.1 FL Neutrophils (%) (Auto) 70.3 % Lymphocytes (%) (Auto) 19.8 % Monocytes (%) (Auto) 8.3 % Eosinophils (%) (Auto) 1.1 % Basophils (%) (Auto) 0.5 % Neutrophils # (Auto) 7.0 TH/MM3 Lymphocytes # (Auto) 2.0 TH/MM3 Monocytes # (Auto) 0.8 TH/MM3 Eosinophils # (Auto) 0.1 TH/MM3 Basophils # (Auto) 0.1 TH/MM3 CBC Comment DIFF FINAL Differential Comment Sodium Level 140 MEQ/L Potassium Level 3.7 MEQ/L Chloride Level 108 MEQ/L Carbon Dioxide Level 22.5 MEQ/L Anion Gap 10 MEQ/L Blood Urea Nitrogen 23 MG/DL Creatinine 1.60 MG/DL Estimat Glomerular Filtration 33 ML/MIN Rate Random Glucose 121 MG/DL Calcium Level 8.3 MG/DL [facility] Medical Record Reviewed: Yes Supervised Visit with JAMAAL: No Differential Diagnosis Please refer to Dr. Crystal's dictation Narrative Course Accept in transfer of care from ; follow up with patient's response to medications for allergic reaction and patient disposition Is now 2:45 AM patient is clinically stable for outpatient management no report of urticaria no further pruritus and upper lip swelling has improved. Patient has no difficulty with breathing swallowing and is desirous of being discharged to home after 3 and half of observation in the emergency department after medication administration. Diagnosis Primary Impression: Allergic reaction Qualified Code: T78.40XA - Allergic reaction, initial encounter Referrals: Primary Care Physician 1 day Patient Instructions: General Instructions Additional Instruction: Take Benadryl 25-50 mg every 4 hours as needed for itching for the next 5-7 days Complete course of Medrol Dosepak steroid Takes Zantac 300 mg daily for 7 days You have been given a prescription for epinephrine to be used if you have any recurrent acute allergic reaction or antibiotic exposure and then traveled to the nearest emergency department Follow-up with your primary care provider call office in a.m. Return to the emergency department for any concerns or change in condition Avoid overheating remain in cool environment and increase fluid hydration was cold beverages. Med/Other Pt SpecificInfo: Prescription(s) given Scripts Epinephrine Inj (Epipen 2-Corey Inj)0.3 Mg/0.3 Ml Pfpen0.3 Mg IM ONCE PRN ( ALLERGIC REACTION) #1 PACK Ref 1 Prov:Jodee Oseguera MD 05/06/17 Methylprednisolone Dosepak (Medrol Dosepak)4 Mg Dspk4 Mg PO DIRECTED #1 DSPK Ref 0 Per Pharmacist direction Prov:Jodee Oseguera MD 05/06/17 Disposition: 01 DISCHARGE HOME Condition: Stable Jodee Oseguera MD May 06, 2017 00:48
[2017-05-06 01:55] VITALS: PULSE 80; RESP 20; O2SAT 96
[2017-05-06] MEDS ORDERED: EPIP0.3I IM (02:43)
[2017-05-06] MEDS ORDERED: MEDR4PAK PO (02:43)
[2017-05-06 02:45] VITALS: BP 106/75
== END 2017-05-06 02:58 | disposition home or self-care (01) ==
LOC: PHED 22:52
DX: T78.40XA Allergy, unspecified, initial encounter (principal)
CPT/HCPCS: 80048; 85025; 96374; 96375; 99284; J1200; J2930

== ENCOUNTER 2017-06-27 11:38 | Inpatient (IN) | payer MEDICARE, BC ==
[~2017-06-27] VITALS: Ht 162.6 cm; Wt 75.4 kg
[2017-06-27] VITALS (15 sets, daily range): BP systolic 66–120; BP diastolic 45–82; PULSE 40–109; RESP 18–22; TEMP 97.8–98.7; O2SAT 90–99
[~2017-06-27 11:38] MED LIST changes: +EPIP0.3I IM; +LIDOCAINE HCL 1% PF 5 ML AMPULE OTHER ONE; +MEDR4PAK PO; +ONDANSETRON HCL 4 MG/2 ML VIAL IV PUSH ONE; +PROPOFOL 200 MG/20 ML AMP IV ONE; +ROCURONIUM INJ 50 MG/5 ML SYRINGE IV PUSH ONE
[2017-06-27] MEDS ORDERED: OCREVUS IV (12:21)
[2017-06-27] MEDS ORDERED: FOLI400T PO (12:21)
[2017-06-27] MEDS ORDERED: ZOLE5P IV (12:21)
[2017-06-27] MEDS ORDERED: CARB100C CHEW (12:21)
[2017-06-27] MEDS ORDERED: METH2.5T PO (12:21)
[2017-06-27] MEDS ORDERED: SODIUM CHLOR 0.9% 1000 ML INJ 1,000 ML IV SCH (12:29)
[2017-06-27] MEDS ORDERED: SODIUM CHLORIDE 0.9% FLUSH 10 ML FLUSH IVF PRN (12:30)
--- NOTE | 2017-06-27 12:33 | PD ---
HPI Chief Complaint: Syncope/Near-Syncope Time Seen by Provider: 12:17 Travel History International Travel<30 days: No Contact w/Intl Traveler<30days: No Traveled to known affect area: No History of Present Illness HPI This 62-year-old female says she been passing blood per rectum since last night. She says she's never done this before. She has passed out twice and both times when standing up after using the toilet. She sees Dr. Cano because of gastroparesis. She says that in October she had a colonoscopy done and had a polyp removed at that time but other chavez it was negative. She has passed out in the past and says this been attributed to her pulse carrol says. She has had multiple sclerosis since 2004 which has affected multiple systems. She also has a history of ankylosing spondylitis. PFSH Past Medical History Autoimmune Disease: Yes (MS, ANKYLOSING SPONDELITIS) Blood Disorders: No Anxiety: Yes Depression: Yes Heart Rhythm Problems: Yes Cancer: Yes Cardiovascular Problems: Yes High Cholesterol: Yes Chemotherapy: Yes (in the past for breast ca) Congestive Heart Failure: No Diabetes: No Diminished Hearing: No Endocrine: Yes Gastrointestinal Disorders: Yes (GASTROPARESIS, ACID REFLUX, HX OF ESOPHAGEAL STRICTURE/DILATION) GERD: Yes Genitourinary: No Hepatitis: No Hiatal Hernia: Yes Hypertension: Yes Immune Disorder: Yes (MULTIPLE SCLEROSIS) Implanted Vascular Access Dvce: Yes (R. SIDE POWER PORT) Musculoskeletal: Yes Neurologic: Yes Psychiatric: Yes Reproductive: No Respiratory: No Immunizations Current: Yes Migraines: Yes Radiation Therapy: Yes Thyroid Disease: Yes ?: Not Menopausal: Yes Past Surgical History Abdominal Surgery: Yes (APPENDECTOMY) AICD: No Appendectomy: Yes Cardiac Surgery: No Ear Surgery: No Endocrine Surgery: No Eye Surgery: Yes (LASIK 1999) Genitourinary Surgery: No Gynecologic Surgery: No Joint Replacement: No Neurologic Surgery: Yes (CARPAL TUNNEL L WRIST) Oral Surgery: Yes (TONSILLECTOMY) Pacemaker: No Thoracic Surgery: Yes (BILATERAL LUMPECTOMY WITH RADIATION L SIDE) Tonsillectomy: Yes Other Surgery: Yes (left mastectomy appendectomy, tonsilctomy, left carpal tunnel.) Social History Alcohol Use: No Tobacco Use: No Substance Use: No Allergies-Medications (Allergen,Severity, Reaction): Coded Allergies: kiwi (Unverified Allergy, Severe, THROAT SWELLS, 06/27/17) adhesive (Unverified Allergy, Intermediate, BLISTERS, REDNESS AT PORT SITE , ITCHING, 06/27/17) latex (Unverified Allergy, Intermediate, BLISTERS, 06/27/17) povidone-iodine (Unverified Allergy, Intermediate, BLISTERS, REDNESS AT PORT SITE, 06/27/17) Reported Meds & Prescriptions Reported Meds & Active Scripts Active Epipen 2-Corey Inj (Epinephrine) 0.3 Mg/0.3 Ml Pfpen 0.3 Mg IM ONCE PRN Reported Reclast Inj (Zoledronic Acid) 5 Mg/100 Ml Inj 5 Mg IV Q365D Methotrexate 2.5 Mg Tab 2.5 Mg PO Q7D Folic Acid 0.4 Mg Tab 1 Mg PO DAILY Carbamazepine 100 Mg Chew 100 Mg CHEW BID [Ocrevus] 300 Mg IV [id number] Vitamin D3 Ultra Strength (Cholecalciferol) 5,000 Unit Cap 50,000 Units PO 2X MONTH Macrodantin (Nitrofurantoin Macrocrystal) 100 Mg Cap 100 Mg PO 3X WEEK Zantac (Ranitidine HCl) 300 Mg Tab 300 Mg PO DAILY Singulair (Montelukast Sodium) 10 Mg Tab 10 Mg PO DAILY Requip (Ropinirole) 3 Mg Tab 3 Mg PO HS Reclast Inj (Zoledronic Acid) 5 Mg/100 Ml Inj 5 Mg IV ONCE Protonix (Pantoprazole Sodium) 20 Mg Tab 20 Mg PO BID Pravachol (Pravastatin) 20 Mg Tab 20 Mg PO DAILY Losartan (Losartan Potassium) 100 Mg Tab 50 Mg PO DAILY Klonopin (Clonazepam) 0.5 Mg Tab 1.5 Mg PO QID Potassium Chloride 1 Pow Pow 10 Meq PO DAILY Effexor (Venlafaxine HCl) 75 Mg Tab 150 Mg PO DAILY Carvedilol 12.5 Mg Tab 6.25 Mg PO BID Calcium 1000 + D (Calcium Carbonate-Cholecalciferol) 1,000-800 Mg-Unit Tab 2, 000 Tab PO DAILY Synthroid (Levothyroxine Sodium) 112 Mcg Tab 112 Mcg PO DAILY Review of Systems General / Constitutional: No: Fever, Chills Eyes: No: Diploplia, Blurred Vision HENT: No: Headaches, Vertigo Cardiovascular: No: Chest Pain or Discomfort, Palpitations Respiratory: No: Cough, Shortness of Breath Gastrointestinal: Positive: Hematochezia Genitourinary: No: Urgency, Frequency Musculoskeletal: Positive: Myalgias, Arthralgias Skin: No Rash, No Itching Neurologic: Positive: Weakness Endocrine: No: Heat Intolerance Physical Exam Narrative GENERAL: Well-developed female SKIN: Focused skin assessment warm/dry. HEAD: Atraumatic. Normocephalic. EYES: Pupils equal and round. No scleral icterus. No injection or drainage. ENT: No nasal bleeding or discharge. Mucous membranes pink and moist. NECK: Trachea midline. No JVD. CARDIOVASCULAR: Regular rate and rhythm. No murmur appreciated. RESPIRATORY: No accessory muscle use. Clear to auscultation. Breath sounds equal bilaterally. GASTROINTESTINAL: Abdomen soft, non-tender, nondistended. Hepatic and splenic margins not palpable. Rectal exam there are no masses. There is blood on the examining finger MUSCULOSKELETAL: No obvious deformities. No clubbing. No cyanosis. No edema. NEUROLOGICAL: Awake and alert. No obvious cranial nerve deficits. Motor grossly within normal limits. Normal speech. PSYCHIATRIC: Appropriate mood and affect; insight and judgment normal. Data Data Last Documented VS Vital Signs Date Time Temp Pulse Resp B/P (MAP) Pulse Ox O2 Delivery O2 Flow Rate FiO2 06/27/17 14:27 98 Nasal Cannula 2.00 06/27/17 14:24 76 76/52 (60) 06/27/17 13:38 18 06/27/17 11:47 97.9 Orders Orders Complete Blood Count With Diff (06/27/17 12:29) Comprehensive Metabolic Panel (06/27/17 12:29) Prothrombin Time / Inr (Pt) (06/27/17 12:29) Act Partial Throm Time (Ptt) (06/27/17 12:29) Urinalysis - C+S If Indicated (06/27/17 12:29) Type And Screen (06/27/17 12:29) Ecg Monitoring (06/27/17 12:29) Iv Access Insert/Monitor (06/27/17 12:29) Oximetry (06/27/17 12:29) Sodium Chlor 0.9% 1000 Ml Inj (Ns 1000 M (06/27/17 12:29) Sodium Chloride 0.9% Flush (Ns Flush) (06/27/17 12:30) Sodium Chlor 0.9% 1000 Ml Inj (Ns 1000 M (06/27/17 12:45) Electrocardiogram (06/27/17 12:37) Sodium Chlor 0.9% 1000 Ml Inj (Ns 1000 M (06/27/17 14:00) Ct Brain W/O Iv Contrast(Rout) (06/27/17 ) Admit Order (Ed Use Only) (06/27/17 14:32) Consult Gastroenterology (06/27/17 ) ^ Other Nursing Orders (06/27/17 14:34) Labs Laboratory Tests Test 06/27/17 12:55 White Blood Count 14.6 TH/MM3 Red Blood Count 4.25 MIL/MM3 Hemoglobin 13.3 GM/DL Hematocrit 37.7 % Mean Corpuscular Volume 88.8 FL Mean Corpuscular Hemoglobin 31.2 PG Mean Corpuscular Hemoglobin Concent 35.2 % Red Cell Distribution Width 14.7 % Platelet Count 280 TH/MM3 Mean Platelet Volume 7.3 FL Neutrophils (%) (Auto) 87.9 % Lymphocytes (%) (Auto) 3.9 % Monocytes (%) (Auto) 7.6 % Eosinophils (%) (Auto) 0.3 % Basophils (%) (Auto) 0.3 % Neutrophils # (Auto) 12.9 TH/MM3 Lymphocytes # (Auto) 0.6 TH/MM3 Monocytes # (Auto) 1.1 TH/MM3 Eosinophils # (Auto) 0.0 TH/MM3 Basophils # (Auto) 0.0 TH/MM3 CBC Comment DIFF FINAL Differential Comment Prothrombin Time 11.1 SEC Prothromb Time International Ratio 1.0 RATIO Activated Partial Thromboplast Time 30.6 SEC Blood Urea Nitrogen 24 MG/DL Creatinine 1.80 MG/DL Random Glucose 122 MG/DL Total Protein 6.2 GM/DL Albumin 3.4 GM/DL Calcium Level 8.8 MG/DL Alkaline Phosphatase 109 U/L Aspartate Amino Transf (AST/SGOT) 14 U/L Alanine Aminotransferase (ALT/SGPT) 16 U/L Total Bilirubin 0.4 MG/DL Sodium Level 137 MEQ/L Potassium Level 3.7 MEQ/L Chloride Level 104 MEQ/L Carbon Dioxide Level 24.3 MEQ/L Anion Gap 9 MEQ/L Estimat Glomerular Filtration Rate 29 ML/MIN MDM Medical Decision Making Medical Screen Exam Complete: Yes Emergency Medical Condition: Yes Medical Record Reviewed: Yes Differential Diagnosis Differential includes GI bleed, syncope Narrative Course Hemoglobin is 13. Patient does have gross blood on rectal exam consistent with a lower GI bleed. She has had a drop in blood pressure to 70/50 and has been given IV fluids. Patient will be admitted to [facility] intensive care unit with consult to Dr. betsy topete Diagnosis Primary Impression: GI bleed Qualified Codes: K92.2 - Gastrointestinal hemorrhage, unspecified Admitting Information Admitting Physician Requests: Admit Daniel Garcia MD Jun 27, 2017 12:33
[2017-06-27] MEDS ORDERED: SODIUM CHLOR 0.9% 1000 ML INJ 1,000 ML IV ONE ×2 (12:45→14:00)
[2017-06-27 13:22] LABS: AUTOMATED NEUTROPHIL # 12.9 TH/MM3 (1.8-7.7); BASOPHIL % 0.3 % (0.0-2.0); EOSINOPHIL % 0.3 % (0.0-4.0); HEMATOCRIT 37.7 % (35.0-46.0); LYMPH % 3.9 % (9.0-44.0); LYMPHOCYTE # 0.6 TH/MM3 (1.0-4.8); MEAN CELL VOLUME 88.8 FL (80.0-100.0); MEAN CORPUSCULAR HEMOGLOBIN 31.2 PG (27.0-34.0); MEAN CORPUSCULAR HGB CONC 35.2 % (32.0-36.0); MONO % 7.6 % (0.0-8.0); NEUT % 87.9 % (16.0-70.0); PLATELET COUNT 280 TH/MM3 (150-450); RED BLOOD COUNT 4.25 MIL/MM3 (4.00-5.30); RED CELL DISTRIBUTION WIDTH 14.7 % (11.6-17.2); WHITE BLOOD COUNT 14.6 TH/MM3 (4.0-11.0)
[2017-06-27 13:23] LABS: HEMO FLAGS DIFF FINAL
[2017-06-27 13:29] LABS: CHLORIDE 104 MEQ/L (98-107); POTASSIUM 3.7 MEQ/L (3.5-5.1); SODIUM (NA) 137 MEQ/L (136-145)
[2017-06-27 13:33] LABS: ANION GAP 9 MEQ/L (5-15); BICARBONATE 24.3 MEQ/L (21.0-32.0); BLOOD UREA NITROGEN 24 MG/DL (7-18)
[2017-06-27 13:35] LABS: APTT (PATIENT) 30.6 SEC (24.3-30.1); PROTHROMBIN TIME - PATIENT 11.1 SEC (9.8-11.6)
[2017-06-27 13:36] LABS: AST (GOT) 14 U/L (15-37); GLOMERULAR FILTRATION RATE 29 ML/MIN (>89)
[2017-06-27 13:37] LABS: ALT (GPT) 16 U/L (10-53)
[2017-06-27 13:38] LABS: TOTAL BILIRUBIN ADULT 0.4 MG/DL (0.2-1.0)
[2017-06-27 13:39] LABS: ALKALINE PHOSPHATASE 109 U/L (45-117)
--- NOTE | 2017-06-27 13:51 | EKG ---
Date Performed: 06/27/2017 Time Performed: 13:09:21 PTAGE: 62 years EKG: Sinus rhythm NORMAL ECG No significant change from prior electrocardiogram. PREVIOUS TRACING : 01/23/2017 08.55 DOCTOR: Herbert Wetzel Interpretating Date/Time 06/27/2017 13:50:51
[2017-06-27] MEDS ORDERED: ONDANSETRON HCL 4 MG/2 ML VIAL IV PUSH PRN (14:45)
[2017-06-27] MEDS ORDERED: SODIUM PHOSPHATE INJ 30 MMOL in SODIUM CHLOR 0.9% 250 ML INJ 240 ML IV PRN (14:45)
[2017-06-27] MEDS ORDERED: MISCELLANEOUS NURSING INFORMATION XX SCH (14:45)
[2017-06-27] MEDS ORDERED: MAGNESIUM SULFATE INJ 4 GM in SODIUM CHLORIDE 0.9% INJ 92 ML IV PRN (14:45)
[2017-06-27] MEDS ORDERED: POTASSIUM CHLOR 20 MEQ PREMIX 100 ML IV PRN (14:45)
[2017-06-27] MEDS ORDERED: POTASSIUM PHOSPHATE INJ 30 MMOL in SODIUM CHLOR 0.9% 250 ML INJ 250 ML IV PRN (14:45)
[2017-06-27] MEDS ORDERED: POTASSIUM CHLOR 40 MEQ PREMIX 100 ML IV PRN ×2 (14:45)
[2017-06-27] MEDS ORDERED: MAGNESIUM SULFATE INJ 2 GM in SODIUM CHLORIDE 0.9% INJ 96 ML IV PRN (14:45)
[2017-06-27] MEDS ORDERED: MAGNESIUM OXIDE 400 MG TAB PO PRN (14:45)
[2017-06-27] MEDS ORDERED: POTASSIUM PHOSPHATE MONOBASIC 500 MG TAB PO/TUBE PRN (14:45)
[2017-06-27] MEDS ORDERED: CHLORHEXIDINE GLUCONATE 2 % 1 PACK (2 CLOTHS) TOP PRN (14:45)
[2017-06-27] MEDS ORDERED: POTASSIUM PHOSPHATE MONOBASIC 500 MG TAB PO PRN (14:45)
[2017-06-27 15:26] LABS: HEMATOCRIT 29.6 % (35.0-46.0); REVIEW FLAG FINAL
--- NOTE | 2017-06-27 15:59 | RADRPT ---
EXAM DATE/TIME: 06/27/2017 15:36 [facility] COMPARISON: No previous studies available for comparison. INDICATIONS : Trauma. Fall. Two syncopal episodes today. Left forehead swelling and bruising. RADIATION DOSE: 59.93 CTDIvol (mGy) MEDICAL HISTORY : Renal failure, chronic. Gastroesophageal reflux disease. Multiple sclerosis.Breast cancer. Hypertens ion. Gastroparesis. SURGICAL HISTORY : Mastectomy, left. Appendectomy. ENCOUNTER: Initial ACUITY: 1 day PAIN SCALE: 7/10 LOCATION: Left cranial TECHNIQUE: Multiple contiguous axial images were obtained of the head. Using automated exposure control and adj ustment of the mA and/or kV according to patient size, radiation dose was kept as low as reasonably a chievable to obtain optimal diagnostic quality images. DICOM format image data is available electro nically for review and comparison. FINDINGS: CEREBRUM: The ventricles are normal for age. No evidence of midline shift, mass lesion, hemorrhage or acute in farction. No extra-axial fluid collections are seen. POSTERIOR FOSSA: The cerebellum and brainstem are intact. The 4th ventricle is midline. The cerebellopontine angle i s unremarkable. EXTRACRANIAL: The visualized portion of the orbits is intact. SKULL: The calvaria is intact. Soft tissue swelling left orbital region No evidence of skull fracture. CONCLUSION: Intracranial contents unremarkable. Delvin Louis MD FACR on June 27, 2017 at 15:57 Board Certified Radiologist. This report was verified electronically.
--- NOTE | 2017-06-27 16:00 | RADRPT ---
EXAM DATE/TIME: 06/27/2017 15:36 [facility] COMPARISON: No previous studies available for comparison. INDICATIONS : Trauma. Fall. Two syncopal episodes today. Swelling and pain over bridge of nose. RADIATION DOSE: 34.80 CTDIvol (mGy) MEDICAL HISTORY : Carcinoma, breast. Multiple sclerosis. Renal failure, chronic. SURGICAL HISTORY : Appendectomy. Mastectomy, left. ENCOUNTER: Initial ACUITY: 1 day PAIN SCORE: 8/10 LOCATION: facial TECHNIQUE: Volumetric scanning of the facial bones was performed. Using automated exposure control and adjustme nt of the mA and/or kV according to patient size, radiation dose was kept as low as reasonably achiev able to obtain optimal diagnostic quality images. DICOM format image data is available electronicall y for review and comparison. FINDINGS: ORBITS: The orbital and infraorbital osseous structures are intact. The retroconal structures have a normal configuration. No radiopaque foreign bodies are seen. NASAL BONE: The nasal bone and maxillary spine are intact ZYGOMATIC ARCHES: Symmetric without evidence of fracture. SINUSES: The maxillary, ethmoid and frontal sinuses are intact. No air-fluid levels seen. NASAL CAVITY: The nasal septum is intact and midline. The lacrimal ducts are intact. SOFT TISSUES: No radiopaque foreign bodies seen. No soft-tissue swelling is seen. INTRACRANIAL: No intracranial air seen. CRIBIFORM PLATE: Grossly intact. CONCLUSION: Minimal soft tissue swelling, negative for fracture. Delvin Louis MD FACR on June 27, 2017 at 15:58 Board Certified Radiologist. This report was verified electronically.
[2017-06-27] MEDS ORDERED: PROPOFOL 200 MG/20 ML AMP IV ONE (17:34)
[2017-06-27] MEDS ORDERED: DO NOT ADM ANY ANTICOAGULANT DRUGS PRN (17:38)
[2017-06-27] MEDS ORDERED: PEG (High)/E-LYTE SOLN 4000 ML BTL PO ONE (17:45)
[2017-06-27] MEDS: SODIUM CHLOR 0.9% 1000 ML INJ 1,000 ML IV SCH (18:05)
--- NOTE | 2017-06-27 19:02 | MB ---
cc: KODAK NIÑO M.D.,ALICE Morales D.O. DATE OF CONSULTATION 06/27/[address] Alice Mayers. REASON FOR CONSULTATION Rectal bleeding, melena. HISTORY OF PRESENT ILLNESS Mrs. Dixon is a 62-year-old lady who states she started having bleeding through the rectum since last night. She describes it as red blood with some dark blood. She states she has passed blood at least three times since last night, two times she almost passed out. She has previous history of gastroparesis and history of colon polyps as well as reflux disease. Dr. Segundo Cano is her family mediator. She had a colonoscopy done in October of this year where colon polyps were removed. There was no mention of diverticulosis. Endoscopy 2 years ago had revealed evidence of reflux disease. She does state she has history of ulcers in the distant past. She is not taking any pain medicines. She denies any alcohol use. PAST MEDICAL HISTORY Ankylosing spondylitis, multiple sclerosis, cardiac arrhythmia, breast cancer, gastroparesis, acid reflux, esophageal stricture requiring dilatation in the past. PAST SURGICAL HISTORY Appendectomy. Eye surgery. Carpal tunnel surgery. Tonsillectomy, EGD, colonoscopy in the past. SOCIAL HISTORY No tobacco, no alcohol. ALLERGIES ALLERGIES TO LATEX, IODINE. MEDICATIONS Include: 1. Reclast. 2. Folic acid. 3. Methotrexate. 4. Carbamazepine. 5. Macrodantin. 6. Zantac. 7. Requip. 8. Protonix. 9. Pravachol. 10. Losartan. 11. Effexor. 12. Carvedilol. 13. Synthroid. REVIEW OF SYSTEMS The patient is hypotensive but otherwise is asymptomatic at this time. There is no active bleeding. She does have some mid abdominal pain and discomfort. No nausea, vomiting. PHYSICAL EXAMINATION GENERAL: Reveals a well-nourished lady in no apparent distress at this time. HEAD/NECK: Examination anicteric sclerae. CHEST: Bilateral air entry with rales. ABDOMEN: Abdomen is soft, some tenderness in the epigastric area. No guarding or rigidity. FAMILY ADVOCATE: Exam is nonfocal. RECTAL: Exam deferred at this time. LABORATORY DATA Labs reveal INR 1, creatinine 1.8, hemoglobin 13.3. IMPRESSION Acute GI bleeding suspected an upper GI source. RECOMMENDATIONS The patient is being emergently transferred to [facility] intensive care unit. She will be transfused 2 units of blood. N.p.o. at this time, place NG tube and superintendent mechanical to low intermittent suctioning. Upper endoscopy is planned for today. Further recommendations to follow based on the patient's clinical course. Thank you for this referral. MD LIZBET Jones/TESS /2:48 PM /6:45 PM
[2017-06-27] MEDS: PANTOPRAZOLE SODIUM 40 MG VIAL IV PUSH SCH (19:53)
[2017-06-27 20:54] LABS: HEMATOCRIT 33.8 % (35.0-46.0); REVIEW FLAG FINAL
--- NOTE | 2017-06-27 21:23 | HHI.HP ---
HPI Service Critical Care Medicine Primary Care Physician Drea Mayers D.O. Admission Diagnosis GI BLEED Diagnosis: (1) MS (multiple sclerosis) Diagnosis: Secondary (2) Allergic rhinitis Diagnosis: Principal (3) GI bleed Diagnosis: Principal (4) Gastroparesis Diagnosis: Principal (5) Elevated partial thromboplastin time (PTT) Diagnosis: Principal (6) CKD (chronic kidney disease) stage 3, GFR 30-59 ml/min Diagnosis: Principal (7) Leucocytosis Diagnosis: Principal (8) Depression Diagnosis: Principal (9) Hyperlipidemia Diagnosis: Principal (10) Hypertension Diagnosis: Principal (11) Hypothyroidism Diagnosis: Principal (12) GERD (gastroesophageal reflux disease) Diagnosis: Principal (13) Ankylosing spondylitis Diagnosis: Principal Chief Complaint: Bright red blood per rectum Travel History International Travel<30 Days: No Contact w/Intl Traveler <30 Da: No Traveled to Known Affected Are: No History of Present Illness 62-year-old female. Date of admission 06/27/2017. Past medical history includes multiple sclerosis, depression/anxiety, ankylosis spondylolysis , hypertension, dyslipidemia, gastroesophageal reflux disease, chronic kidney disease stage III B, recurrent UTIs.. Patient present to [facility] with complaining of bright red blood per rectum associated with some dark blood she states she's felt dizzy and has almost passed out twice in the interim. She does have a history of gastroparesis and colonic polyps, gastroesophageal reflux disease. History of polypectomy recently. No mention diverticulosis. Endoscopy 2 years ago revealed gastric reflux disease. Denies alcohol use. Denies NSAID use. Initially, hemoglobin revealed leukocytosis and no significant anemia. Patient had an EGD which showed class a esophagitis and gastritis without stigmata bleeding. Plan for colonoscopy in a.m. 06/28. Currently on pantoprazole 40 mg IV twice a day Review of Systems Constitutional: DENIES: Diaphoretic episodes, Fatigue, Fever, Weight gain, Weight loss Endocrine: DENIES: Heat/cold intolerance Eyes: DENIES: Diplopia Ears, nose, mouth, throat: DENIES: Tinnitus, Hearing loss Respiratory: DENIES: Cough, Sputum production Cardiovascular: DENIES: Chest pain Gastrointestinal: DENIES: Abdominal pain Genitourinary: DENIES: Urgency Musculoskeletal: DENIES: Joint pain Integumentary: DENIES: Abnormal pigmentation, Pruritus, Rash Hematologic/lymphatic: DENIES: Bruising Immunologic/allergic: DENIES: Eczema Neurologic: DENIES: Abnormal gait Psychiatric: DENIES: Confusion Past Family Social History Allergies: Coded Allergies: kiwi (Unverified Allergy, Severe, THROAT SWELLS, 06/27/17) adhesive (Unverified Allergy, Intermediate, BLISTERS, REDNESS AT PORT SITE , ITCHING, 06/27/17) latex (Unverified Allergy, Intermediate, BLISTERS, 06/27/17) povidone-iodine (Unverified Allergy, Intermediate, BLISTERS, REDNESS AT PORT SITE, 06/27/17) Past Medical History CKD IIIb Previous admissions for chest pain, had stress test in 2015 that was negative. Hypertension Hyperlipidemia Multiple sclerosis Restless leg syndrome Gastroesophageal reflux Hypothyroidism History of breast cancer History trigeminal neuralgia, previously treated with Botox injections. History of obstructive sleep apnea Elevated PTT Gastroparesis Depression/anxiety History of left thumb/right leg hemangioma Chronic benzodiazepine use Allergic rhinitis Urinary tract infection suppression Past Surgical History Past Surgical History Bilateral breast lumpectomies including left breast mastectomy Tonsillectomy Appendectomy Stereotactic radiosurgery of left trigeminal nerve History of endoscopy with esophageal stricture dilatation Left wrist carpal tunnel surgery Lasik eye surgery Botox injection Esophageal dilatation Reported Medications Active Epipen 2-Corey Inj (Epinephrine) 0.3 Mg/0.3 Ml Pfpen 0.3 Mg IM ONCE PRN Reported Reclast Inj (Zoledronic Acid) 5 Mg/100 Ml Inj 5 Mg IV Q365D Methotrexate 2.5 Mg Tab 2.5 Mg PO Q7D Folic Acid 0.4 Mg Tab 1 Mg PO DAILY Carbamazepine 100 Mg Chew 100 Mg CHEW BID [Ocrevus] 300 Mg IV [id number] Vitamin D3 Ultra Strength (Cholecalciferol) 5,000 Unit Cap 50,000 Units PO 2X MONTH Macrodantin (Nitrofurantoin Macrocrystal) 100 Mg Cap 100 Mg PO 3X WEEK Zantac (Ranitidine HCl) 300 Mg Tab 300 Mg PO DAILY Singulair (Montelukast Sodium) 10 Mg Tab 10 Mg PO DAILY Requip (Ropinirole) 3 Mg Tab 3 Mg PO HS Reclast Inj (Zoledronic Acid) 5 Mg/100 Ml Inj 5 Mg IV ONCE Protonix (Pantoprazole Sodium) 20 Mg Tab 20 Mg PO BID Pravachol (Pravastatin) 20 Mg Tab 20 Mg PO DAILY Losartan (Losartan Potassium) 100 Mg Tab 50 Mg PO DAILY Klonopin (Clonazepam) 0.5 Mg Tab 1.5 Mg PO QID Potassium Chloride 1 Pow Pow 10 Meq PO DAILY Effexor (Venlafaxine HCl) 75 Mg Tab 150 Mg PO DAILY Carvedilol 12.5 Mg Tab 6.25 Mg PO BID Calcium 1000 + D (Calcium Carbonate-Cholecalciferol) 1,000-800 Mg-Unit Tab 2, 000 Tab PO DAILY Synthroid (Levothyroxine Sodium) 112 Mcg Tab 112 Mcg PO DAILY Active Ordered Medications Reviewed in EMR Family History Reviewed and significant for father having coronary bypass surgery. He subsequently from colon cancer. Grandmother with cancer, aunt with diabetes Social History Quit tobacco in 1990. 4-pack-year since teenager. Denies Alcohol or drug use Physical Exam Vital Signs Vital Signs Date Time Temp Pulse Resp B/P (MAP) Pulse Ox O2 Delivery O2 Flow Rate FiO2 06/27/17 20:34 98.3 79 20 104/65 97 06/27/17 18:15 98.8 82 20 109/53 (71) 94 Nasal Cannula 2 06/27/17 18:15 82 20 109/53 (71) 94 06/27/17 18:00 82 16 90/56 (67) 95 06/27/17 17:45 83 17 96/66 (76) 93 Nasal Cannula 2 06/27/17 17:43 98.8 83 20 91/55 (67) 97 Nasal Cannula 2 06/27/17 16:24 82/51 (61) 97 Nasal Cannula 2.00 06/27/17 15:58 82/51 (61) 06/27/17 14:27 98 Nasal Cannula 2.00 06/27/17 14:24 76 76/52 (60) 90 Room Air 06/27/17 14:15 76 78/53 (61) 90 Room Air 06/27/17 13:38 81 18 75/53 (60) 96 Room Air 06/27/17 13:32 98 Room Air 06/27/17 13:15 84 81/56 (64) 94 06/27/17 13:00 106/82 (90) 06/27/17 12:45 70 78/71 (73) 90 06/27/17 12:15 94 66/45 (52) 96 Room Air 06/27/17 11:47 97.9 109 18 104/57 (73 98 Physical Exam GENERAL: 62-year-old female, resting in bed in no acute distress SKIN: Warm and dry. No rash HEAD: Atraumatic. Normocephalic. EYES: Pupils equal and round. No scleral icterus. No injection or drainage. ENT: No nasal bleeding or discharge. Mucous membranes pink and moist. NECK: Trachea midline. No JVD. CARDIOVASCULAR: Regular rate and rhythm. S1, S2. No S4. Without murmur RESPIRATORY: No accessory muscle use. Clear to auscultation. Breath sounds equal bilaterally. GASTROINTESTINAL: Abdomen soft, non-tender, nondistended. Hepatic and splenic margins not palpable. MUSCULOSKELETAL: Extremities without significant peripheral edema. No obvious deformities. NEUROLOGICAL: Awake and alert. No obvious cranial nerve deficits. Motor grossly within normal limits. Five out of 5 muscle strength in the arms and legs. Normal speech. PSYCHIATRIC: Appropriate mood and affect; insight and judgment normal. Laboratory Laboratory Tests Test 06/27/17 12:55 06/27/17 15:05 06/27/17 20:28 White Blood Count 14.6 Red Blood Count 4.25 Hemoglobin 13.3 10.1 11.4 Hematocrit 37.7 29.6 33.8 Mean Corpuscular Volume 88.8 Mean Corpuscular Hemoglobin 31.2 Mean Corpuscular Hemoglobin Concent 35.2 Red Cell Distribution Width 14.7 Platelet Count 280 Mean Platelet Volume 7.3 Neutrophils (%) (Auto) 87.9 Lymphocytes (%) (Auto) 3.9 Monocytes (%) (Auto) 7.6 Eosinophils (%) (Auto) 0.3 Basophils (%) (Auto) 0.3 Neutrophils # (Auto) 12.9 Lymphocytes # (Auto) 0.6 Monocytes # (Auto) 1.1 Eosinophils # (Auto) 0.0 Basophils # (Auto) 0.0 CBC Comment DIFF FINAL Differential Comment Prothrombin Time 11.1 Prothromb Time International Ratio 1.0 Activated Partial Thromboplast Time 30.6 Blood Urea Nitrogen 24 Creatinine 1.80 Random Glucose 122 Total Protein 6.2 Albumin 3.4 Calcium Level 8.8 Alkaline Phosphatase 109 Aspartate Amino Transf (AST/SGOT) 14 Alanine Aminotransferase (ALT/SGPT) 16 Total Bilirubin 0.4 Sodium Level 137 Potassium Level 3.7 Chloride Level 104 Carbon Dioxide Level 24.3 Anion Gap 9 Estimat Glomerular Filtration Rate 29 Result Diagram: 9/15/17 2028 9/15/17 1255 Imaging Last Impressions Maxillofacial CT 06/27/17 1536 Signed Impressions: Service Date/Time: Tuesday, June 27, 2017 15:36 - CONCLUSION: Minimal soft tissue swelling, negative for fracture. Delvin Louis MD FACR Head CT 06/27/17 0000 Signed Impressions: Service Date/Time: Tuesday, June 27, 2017 15:36 - CONCLUSION: Intracranial contents unremarkable. Delvin Louis MD FACR Caprini VTE Risk Assessment Caprini VTE Risk Assessment: Mod/High Risk (score >= 2) Caprini Risk Assessment Model Point Value = 1 Point Value = 2 Point Value = 3 Point Value = 5 Age 41-60 Minor surgery BMI > 25 kg/m2 Swollen legs Varicose veins or History of unexplained or recurrent spontaneous Oral contraceptives or hormone replacement Sepsis (< 1 month) Serious lung disease, including pneumonia (< 1 month) Abnormal pulmonary function Acute myocardial infarction Congestive heart failure (< 1 month) History of inflammatory bowel disease Medical patient at bed rest Age 61-74 Arthroscopic surgery Major open surgery (> 45 min) Laparoscopic surgery (> 45 min) Malignancy Confined to bed (> 72 hours) Immobilizing plaster cast Central venous access Age >= 75 History of VTE Family history of VTE Factor V Leiden Prothrombin [id number] Lupus anticoagulant Anticardiolipin antibodies Elevated serum homocysteine Heparin-induced thrombocytopenia Other congenital or acquired thrombophilia Stroke (< 1 month) Elective arthroplasty Hip, pelvis, or leg fracture Acute spinal cord injury (< 1 month) Prophylaxis Regimen Total Risk Factor Score Risk Level Prophylaxis Regimen 0-1 Low Early ambulation 2 Moderate Order ONE of the following: *Sequential Compression Device (SCD) *Heparin 5000 units SQ BID 3-4 Higher Order ONE of the following medications: *Heparin 5000 units SQ TID *Enoxaparin/Lovenox 40 mg SQ daily (WT < 150 kg, CrCl > 30 mL/min) *Enoxaparin/Lovenox 30 mg SQ daily (WT < 150 kg, CrCl > 10-29 mL/min) *Enoxaparin/Lovenox 30 mg SQ BID (WT < 150 kg, CrCl > 30 mL/min) AND/OR *Sequential Compression Device (SCD) 5 or more Highest Order ONE of the following medications: *Heparin 5000 units SQ TID (Preferred with Epidurals) *Enoxaparin/Lovenox 40 mg SQ daily (WT < 150 kg, CrCl > 30 mL/min) *Enoxaparin/Lovenox 30 mg SQ daily (WT < 150 kg, CrCl > 10-29 mL/min) *Enoxaparin/Lovenox 30 mg SQ BID (WT < 150 kg, CrCl > 30 mL/min) AND *Sequential Compression Device (SCD) Assessment and Plan Assessment and Plan Neuro/Psych: Depression/anxiety Multiple sclerosis Okay to resume clonazepam 1.5 mill grams by mouth 4 times a day, carbamazepine 100 mg twice a day and venlafaxine 50 mg by mouth daily along with ropinirole 3 mg by mouth at bedtime when clinically indicated Holding methotrexate 2.5 mg by mouth daily Holding Ocrevus 300 mg IV every 6 months for relapsing MS CV: Hypertension Dyslipidemia Currently holding pravastatin 20 milligrams for dyslipidemia by mouth daily light of upper GI bleed. Resume when clinically indicated carvedilol 6.2 mg by mouth twice a day and losartan 100 mg daily for hypertension. Resume when clinically indicated TAO recently revealed ejection fraction of 55-60%. Resp: Obstructive sleep apnea? Continue montelukast 10 mg' by mouth daily when clinically indicated Currently on nasal cannula 1.5 L GI: Gastroparesis Gastroesophageal reflux disease Class a esophagitis Gastritis History colonic polyps EGD today revealed class a esophagitis, gastritis with no stigmata bleeding. Plan for colonoscopy after preparation in a.m. Currently nothing by mouth On pantoprazole 40 mg IV twice a day On ranitidine or Protonix at home : Carter catheter to be indicated for accurate I's and O's in a critically ill patient Endo: Hypothyroidism Sliding-scale insulin only if indicated to maintain euglycemia Continue with thyroxine 112 mg by mouth daily Renal: Chronic kidney disease stage III Creatinine currently 1.8. Monitor urine output Accurate I's and O's Heme: History of breast cancer status post left mastectomy and right lumpectomy Acute blood loss anemia Elevated PTT Status post 2 units PRBCs ID: Recurrent cystitis Resume Macrodantin 100 mg 3 times weekly MSK: Osteoporosis Ankylosing spondylosis PT evaluate and treat Resume calcium carbonate/cholecalciferol 1000/800 one tablet as needed when indicated. Resume zoledronic 5 mg yearly when clinically indicated FEN: Replace electrolytes as clinically indicated. And schedule potassium chloride 10 mg by mouth daily Access - utilize peripheral IVs. Central line if indicated Prophylaxis - GI - pantoprazole - DVT - SCD/pharmacological prophylaxis contraindicated with active GI bleeding Level II admission Code Status Full code Discussed Condition With Patient. Care plan discussed and all questions answered Problem Qualifiers (1) Allergic rhinitis: Qualified Codes: J30.9 - Allergic rhinitis, unspecified (2) GI bleed: Qualified Codes: K92.2 - Gastrointestinal hemorrhage, unspecified (3) Leucocytosis: Qualified Codes: D72.829 - Elevated white blood cell count, unspecified (4) Depression: Qualified Codes: F32.9 - Major depressive disorder, single episode, unspecified (5) Hyperlipidemia: Qualified Codes: E78.5 - Hyperlipidemia, unspecified (6) Hypertension: Qualified Codes: I10 - Essential (primary) hypertension (7) Hypothyroidism: Qualified Codes: E03.9 - Hypothyroidism, unspecified (8) GERD (gastroesophageal reflux disease): Qualified Codes: K21.0 - Gastro-esophageal reflux disease with esophagitis (9) Ankylosing spondylitis: Qualified Codes: M45.9 - Ankylosing spondylitis of unspecified sites in spine Braulio Stevenson MD Jun 27, 2017 21:23
[2017-06-28] VITALS (14 sets, daily range): BP systolic 81–121; BP diastolic 54–82; PULSE 74–88; RESP 18–26; TEMP 97.6–99.8; O2SAT 90–100
[2017-06-28] MEDS ORDERED: EPINEPHrine HCL 0.3 MG SYR IM PRN (03:45)
[2017-06-28] MEDS: CHLORHEXIDINE GLUCONATE 2 % 1 PACK (2 CLOTHS) TOP SCH (04:00)
[2017-06-28 04:07] LABS: HEMATOCRIT 41.6 % (35.0-46.0); MEAN CELL VOLUME 88.5 FL (80.0-100.0); MEAN CORPUSCULAR HEMOGLOBIN 30.7 PG (27.0-34.0); MEAN CORPUSCULAR HGB CONC 34.7 % (32.0-36.0); PLATELET COUNT 185 TH/MM3 (150-450); RED CELL DISTRIBUTION WIDTH 15.9 % (11.6-17.2); REVIEW FLAG FINAL; WHITE BLOOD COUNT 9.9 TH/MM3 (4.0-11.0)
[2017-06-28 04:14] LABS: BICARBONATE 25.4 MEQ/L (21.0-32.0); MAGNESIUM 1.9 MG/DL (1.5-2.5); POTASSIUM 3.3 MEQ/L (3.5-5.1)
[2017-06-28] MEDS: SODIUM CHLOR 0.9% 1000 ML INJ 1,000 ML IV SCH ×2 (05:56→13:24)
[2017-06-28] MEDS: LEVOTHYROXINE SODIUM 112 MCG TAB PO SCH (05:56)
--- NOTE | 2017-06-28 08:29 | HHI.CCPN ---
Subjective Remarks/Hospital Course 62-year-old female. Date of admission 06/27/2017. Past medical history includes multiple sclerosis, depression/anxiety, ankylosis spondylolysis , hypertension, dyslipidemia, gastroesophageal reflux disease, chronic kidney disease stage III B, recurrent UTIs.. Patient present to [place] with complaining of bright red blood per rectum associated with some dark blood she states she's felt dizzy and has almost passed out twice in the interim. She does have a history of gastroparesis and colonic polyps, gastroesophageal reflux disease. History of polypectomy recently. No mention diverticulosis. Endoscopy 2 years ago revealed gastric reflux disease. Denies alcohol use. Denies NSAID use. Initially, hemoglobin revealed leukocytosis and no significant anemia. Patient had an EGD which showed class a esophagitis and gastritis without stigmata bleeding. Plan for colonoscopy in a.m. 06/28. Currently on pantoprazole 40 mg IV twice a day 06/28 Patient is awake , alert lying in bed in NAD. Afebrile. s/p transfusion 2units PRBC last night Hgb 14.5 this morning. For colonoscopy today. Renal function is improving with Cr: 1.0 from 1.8. Objective Vital Signs Date Time Temp Pulse Resp B/P (MAP) Pulse Ox O2 Delivery O2 Flow Rate FiO2 06/28/17 07:58 92 Nasal Cannula 4.00 06/28/17 06:00 76 06/28/17 04:00 98.7 22 99/54 (69) Intake and Output 06/28/17 06/28/17 06/29/17 08:00 16:00 00:00 Intake Total 1029 ml Output Total 1125 ml Balance -96 ml Result Diagram: 06/28/17 0338 06/28/17 0338 Other Results Laboratory Tests Test 06/27/17 12:55 06/27/17 15:05 06/27/17 18:42 06/27/17 20:28 White Blood Count 14.6 TH/MM3 Red Blood Count 4.25 MIL/MM3 Hemoglobin 13.3 GM/DL 10.1 GM/DL 11.4 GM/DL Hematocrit 37.7 % 29.6 % 33.8 % Mean Corpuscular Volume 88.8 FL Mean Corpuscular Hemoglobin 31.2 PG Mean Corpuscular Hemoglobin Concent 35.2 % Red Cell Distribution Width 14.7 % Platelet Count 280 TH/MM3 Mean Platelet Volume 7.3 FL Neutrophils (%) (Auto) 87.9 % Lymphocytes (%) (Auto) 3.9 % Monocytes (%) (Auto) 7.6 % Eosinophils (%) (Auto) 0.3 % Basophils (%) (Auto) 0.3 % Neutrophils # (Auto) 12.9 TH/MM3 Lymphocytes # (Auto) 0.6 TH/MM3 Monocytes # (Auto) 1.1 TH/MM3 Eosinophils # (Auto) 0.0 TH/MM3 Basophils # (Auto) 0.0 TH/MM3 CBC Comment DIFF FINAL Differential Comment Prothrombin Time 11.1 SEC Prothromb Time International Ratio 1.0 RATIO Activated Partial Thromboplast Time 30.6 SEC Blood Urea Nitrogen 24 MG/DL Creatinine 1.80 MG/DL Random Glucose 122 MG/DL Total Protein 6.2 GM/DL Albumin 3.4 GM/DL Calcium Level 8.8 MG/DL Alkaline Phosphatase 109 U/L Aspartate Amino Transf (AST/SGOT) 14 U/L Alanine Aminotransferase (ALT/SGPT) 16 U/L Total Bilirubin 0.4 MG/DL Sodium Level 137 MEQ/L Potassium Level 3.7 MEQ/L Chloride Level 104 MEQ/L Carbon Dioxide Level 24.3 MEQ/L Anion Gap 9 MEQ/L Estimat Glomerular Filtration Rate 29 ML/MIN Nasal Screen MRSA (PCR) MRSA DETECTED Test 06/28/17 03:38 White Blood Count 9.9 TH/MM3 Red Blood Count 4.70 MIL/MM3 Hemoglobin 14.5 GM/DL Hematocrit 41.6 % Mean Corpuscular Volume 88.5 FL Mean Corpuscular Hemoglobin 30.7 PG Mean Corpuscular Hemoglobin Concent 34.7 % Red Cell Distribution Width 15.9 % Platelet Count 185 TH/MM3 Mean Platelet Volume 7.6 FL Blood Urea Nitrogen 12 MG/DL Creatinine 1.05 MG/DL Random Glucose 96 MG/DL Calcium Level 7.6 MG/DL Phosphorus Level 2.2 MG/DL Magnesium Level 1.9 MG/DL Sodium Level 144 MEQ/L Potassium Level 3.3 MEQ/L Chloride Level 111 MEQ/L Carbon Dioxide Level 25.4 MEQ/L Anion Gap 8 MEQ/L Estimat Glomerular Filtration Rate 53 ML/MIN Imaging Last Impressions Maxillofacial CT 06/27/17 1536 Signed Impressions: Service Date/Time: Tuesday, June 27, 2017 15:36 - CONCLUSION: Minimal soft tissue swelling, negative for fracture. Delvin Louis MD FACR Head CT 06/27/17 0000 Signed Impressions: Service Date/Time: Tuesday, June 27, 2017 15:36 - CONCLUSION: Intracranial contents unremarkable. Delvin Louis MD FACR Objective Remarks GENERAL: 62-year-old female, resting in bed in no acute distress SKIN: Warm and dry. No rash HEAD: Atraumatic. Normocephalic. EYES: Pupils equal and round. No scleral icterus. No injection or drainage. ENT: No nasal bleeding or discharge. Mucous membranes pink and moist. NECK: Trachea midline. No JVD. CARDIOVASCULAR: Regular rate and rhythm. S1, S2. No S4. Without murmur RESPIRATORY: No accessory muscle use. Clear to auscultation. Breath sounds equal bilaterally. GASTROINTESTINAL: Abdomen soft, non-tender, nondistended. Hepatic and splenic margins not palpable. MUSCULOSKELETAL: Extremities without significant peripheral edema. No obvious deformities. NEUROLOGICAL: Awake and alert. No obvious cranial nerve deficits. Motor grossly within normal limits. Five out of 5 muscle strength in the arms and legs. Normal speech. PSYCHIATRIC: Appropriate mood and affect; insight and judgment normal. A/P Assessment and Plan Neuro/Psych: Depression/anxiety Multiple sclerosis On clonazepam 1.5mg by mouth 4 times a day, carbamazepine 100 mg twice a day and venlafaxine 50 mg by mouth daily along with ropinirole 3 mg by mouth at bedtime methotrexate 2.5 mg by mouth daily CV: Hypertension Dyslipidemia Monitor HR and BP keep MAP>65mmHg TAO recently revealed ejection fraction of 55-60%. Resp: Obstructive sleep apnea? Continue with oxygen keep sat >92% Continue montelukast 10 mg' by mouth daily GI: Gastroparesis Gastroesophageal reflux disease Class a esophagitis Gastritis History colonic polyps EGD 06/27: esophagitis, gastritis with no stigmata bleeding. Keep NPO Colonoscopy today- 20 x 25cm circumferential colitis was found in the sigmoid colon; The mucosa was congested, erythematous, friable and had granularity consistent with ischemic; external hemorrhoids On pantoprazole 40 mg IV twice a day. CT abdomen/pelvis: left sided colitis, no perforation or obstruction : Chronic kidney disease stage III Monitor renal function, electrolytes replacement per protocol. Will need K, Phos replacement today Renal function is improving with Cr: 1.0 today from 1.8. On NS@75ml/hr Endo: Hypothyroidism Sliding-scale insulin only if indicated to maintain euglycemia Continue with thyroxine 112 mg by mouth daily Heme: History of breast cancer status post left mastectomy and right lumpectomy Acute blood loss anemia Elevated PTT Status post 2 units PRBCs Monitor CBC ID: Recurrent cystitis On Macrodantin 100 mg 3 times weekly Monitor for signs of infections ( Fever, WBC) Will place on Flagyl 500mg Q8 for colitis MSK: Osteoporosis Ankylosing spondylosis PT evaluate and treat Resume calcium carbonate/cholecalciferol 1000/800 one tablet as needed when indicated. Resume zoledronic 5 mg yearly when clinically indicated Access - utilize peripheral IVs. Prophylaxis - GI - pantoprazole - DVT - SCD/pharmacological prophylaxis contraindicated with GI bleeding Will sign off and transfer care to [facility] Level III Swetha George MD Jun 28, 2017 08:29
[2017-06-28] MEDS ORDERED: GLUCAGON 1 MG/ML VIAL OTHER PRN (08:30)
[2017-06-28] MEDS ORDERED: DEXTROSE 50% IN WATER 50 ML VIAL(D50) IV PRN (08:30)
[2017-06-28] MEDS: INSULIN NovoLIN REGULAR SUPPLEMENTAL SCALE SQ SCH ×3 (08:30→20:30)
[2017-06-28] MEDS: VENLAFAXINE HCL 75 MG TAB PO SCH (09:00)
[2017-06-28] MEDS: FOLIC ACID 1 MG TAB PO SCH (09:00)
[2017-06-28] MEDS: PRAVASTATIN SOD 20 MG TAB PO SCH (09:00)
[2017-06-28] MEDS: MONTELUKAST SODIUM 10 MG TAB PO SCH (09:00)
[2017-06-28] MEDS: clonazePAM 0.5 MG TAB PO SCH ×4 (09:00→20:38)
[2017-06-28] MEDS ORDERED: PROPOFOL 200 MG/20 ML AMP IV ONE (09:39)
[2017-06-28] MEDS ORDERED: DO NOT ADM ANY ANTICOAGULANT DRUGS PRN (09:43)
--- NOTE | 2017-06-28 09:43 | GIPROC ---
[facility] [address] [facility] [place], [address] COLONOSCOPY PROCEDURE REPORT EXAM DATE: 06/28/2017 PATIENT NAME: Sharon Dixon MR #: [id number] BIRTHDATE: 1955 ENDOSCOPIST: Skip Garcia MD ORDER #: [id number] [facility] SPECIALIST: Toya Motta and Lyn Reynaga STATUS: inpatient INDICATIONS: The patient is a 62 yr old female here for a colonoscopy due to hematochezia PROCEDURE PERFORMED: Colonoscopy with biopsy MEDICATIONS: None and Per Anesthesia. PREP QUALITY: The [place] Bowel Prep Score was Right colon 2, Mid colon 3, and Left colon 3. Total = 8. PREP TYPE:GoLytely ESTIMATED BLOOD LOSS: None CONSENT: The patient understands the risks and benefits of the procedure and understands that these risks include, but are not limited to: sedation, allergic reaction, infection, perforation and/or bleeding. Alternative means of evaluation and treatment include, among others: physical exam, x-rays, and/or surgical intervention. The patient elects to proceed with this endoscopic procedure. medical equipment was checked for proper function. Hand hygiene and appropriate measures for infection prevention was taken. After the risks, benefits and alternatives of the procedure were thoroughly explained, Informed consent was verified, confirmed and timeout was successfully executed by the treatment team. A digital exam revealed external hemorrhoids The New [id number] (Std Gastro) endoscope was introduced through the anus and advanced to the cecum, which was identified by both the appendix and ileocecal valve. The instrument was then slowly withdrawn as the colon was fully examined. COLON FINDINGS: A 20 x 25cm circumferential patch of colitis was found in the sigmoid colon. The mucosa was congested, erythematous, friable and had granularity. Consitent with ischemic. Retroflexed views revealed internal hemorrhoids and Retroflexed views revealed medium internal hemorrhoids The scope was then completely withdrawn from the patient and the procedure terminated. PROCEDURE WITHDRAWAL TIME:6minutes ADVERSE EVENTS: There were no complications. IMPRESSIONS: 1. 20 x 25cm circumferential colitis was found in the sigmoid colon; The mucosa was congested, erythematous, friable and had granularity; Consitent with ischemic 2. Retroflexed views revealed internal hemorrhoids 3. Retroflexed views revealed medium internal hemorrhoids 4. Revealed external hemorrhoids RECOMMENDATIONS: 1. Await biopsy results. Biopsy results will not be ready for 7-10 days. If you don't hear from us in two weeks, call our office for results. 2. Continue surveillance 3. Yearly hemoccult 4. Xray for CT of abdomen with contrast RECALL: Return 3 months Colonoscopy, pending biopsy results Skip Garcia MD eSigned: Skip Garcia MD 06/28/2017 9:42 AM cc: PATIENT NAME: Sharon Dixon MR#: [id number]
[2017-06-28] MEDS ORDERED: DIATRIZOATE MEGLUM/DIATRIZOATE SOD 9 ML CUP PO ONE (10:15)
[2017-06-28] MEDS: MUPIROCIN 2% OINT 1 APPLIC/GM SYR EACH NARE SCH ×2 (10:44→20:36)
[2017-06-28] MEDS: PANTOPRAZOLE SODIUM 40 MG VIAL IV PUSH SCH ×2 (10:45→20:36)
[2017-06-28 13:41] LABS: HEMATOCRIT 40.2 % (35.0-46.0); REVIEW FLAG FINAL
--- NOTE | 2017-06-28 16:54 | RADRPT ---
EXAM DATE/TIME: 06/28/2017 16:24 [place] COMPARISON: No previous studies available for comparison. INDICATIONS : Lower abdomen pain for three days. ORAL CONTRAST: Prescribed oral contrast ingested. RADIATION DOSE: 9.96 CTDIvol (mGy) MEDICAL HISTORY : Multple sclerosis. Hypertension. Gastroesophageal reflux disease. SURGICAL HISTORY : Appendectomy. ENCOUNTER: Initial ACUITY: 3 days PAIN SCALE: 5/10 LOCATION: Bilateral lower quadrant TECHNIQUE: Volumetric scanning of the abdomen and pelvis was performed. Using automated exposure control and ad justment of the mA and/or kV according to patient size, radiation dose was kept as low as reasonably achievable to obtain optimal diagnostic quality images. DICOM format image data is available electro nically for review and comparison. FINDINGS: LOWER LUNGS: Patchy consolidation and tiny pleural effusions seen of both lung bases. LIVER: Homogeneous density without lesion. There is no dilation of the biliary tree. No calcified gallston es. Small perihepatic ascites noted SPLEEN: Normal size without lesion. PANCREAS: Within normal limits. KIDNEYS: Normal in size and shape. There is no mass, stone, or hydronephrosis. ADRENAL GLANDS: Within normal limits. VASCULAR: There is no aortic aneurysm. BOWEL/MESENTERY: Wall thickening and pericolonic edema seen of the descending and sigmoid portions of the colon. There are some scattered diverticula but the features are not typical of diverticulitis, more likely infec tious. ABDOMINAL WALL: Within normal limits. RETROPERITONEUM: There is no lymphadenopathy. BLADDER: No wall thickening or mass. REPRODUCTIVE: Within normal limits. INGUINAL: There is no lymphadenopathy or hernia. MUSCULOSKELETAL: No acute bony abnormality demonstrated. CONCLUSION: 1. Long segment, mostly left-sided colitis, probably infectious. No abscess, perforation or obstructi on. 2. Small, nonspecific perihepatic ascites. 3. Patchy infiltrate of both lung bases. Ghulam Chavez MD on June 28, 2017 at 16:48 Board Certified Radiologist. This report was verified electronically.
[2017-06-28 17:16] LABS: POTASSIUM 3.5 MEQ/L (3.5-5.1)
[2017-06-28] MEDS: metroNIDAZOLE 500 MG TAB PO SCH ×2 (17:48→20:37)
[2017-06-28 18:53] LABS: HEMATOCRIT 39.3 % (35.0-46.0); REVIEW FLAG FINAL
[2017-06-28 22:22] LABS: C. DIFF EPI 027 PRESUMPTIVE NEGATIVE (NEGATIVE)
[2017-06-28] MEDS: ACETAMINOPHEN 325 MG TAB PO PRN (23:07)
[2017-06-29] VITALS (12 sets, daily range): BP systolic 95–131; BP diastolic 58–75; PULSE 63–78; RESP 12–20; TEMP 97.6–99.2; O2SAT 22–98
[2017-06-29] MEDS: INSULIN NovoLIN REGULAR SUPPLEMENTAL SCALE SQ SCH ×4 (02:30→17:33)
[2017-06-29] MEDS: SODIUM CHLOR 0.9% 1000 ML INJ 1,000 ML IV SCH ×2 (03:18→23:37)
[2017-06-29] MEDS: CHLORHEXIDINE GLUCONATE 2 % 1 PACK (2 CLOTHS) TOP SCH (03:19)
[2017-06-29 04:59] LABS: AUTOMATED NEUTROPHIL # 4.6 TH/MM3 (1.8-7.7); BASOPHIL % 0.2 % (0.0-2.0); EOSINOPHIL # 0.2 TH/MM3 (0-0.4); EOSINOPHIL % 2.9 % (0.0-4.0); HEMATOCRIT 38.8 % (35.0-46.0); HEMO FLAGS DIFF FINAL; LYMPH % 19.1 % (9.0-44.0); LYMPHOCYTE # 1.3 TH/MM3 (1.0-4.8); MEAN CELL VOLUME 88.3 FL (80.0-100.0); MEAN CORPUSCULAR HEMOGLOBIN 29.8 PG (27.0-34.0); MEAN CORPUSCULAR HGB CONC 33.7 % (32.0-36.0); MONO % 11.9 % (0.0-8.0); NEUT % 65.9 % (16.0-70.0); PLATELET COUNT 169 TH/MM3 (150-450); RED CELL DISTRIBUTION WIDTH 15.7 % (11.6-17.2)
[2017-06-29 05:04] LABS: POTASSIUM 3.1 MEQ/L (3.5-5.1)
[2017-06-29] MEDS: LEVOTHYROXINE SODIUM 112 MCG TAB PO SCH (05:15)
[2017-06-29] MEDS: metroNIDAZOLE 500 MG TAB PO SCH ×3 (05:15→21:08)
[2017-06-29] MEDS: ACETAMINOPHEN 325 MG TAB PO PRN (05:16)
[2017-06-29] MEDS: POTASSIUM CHLOR 20 MEQ PREMIX 100 ML IV PRN ×2 (05:50→11:20)
[2017-06-29] MEDS: VENLAFAXINE HCL 75 MG TAB PO SCH (08:15)
[2017-06-29] MEDS: MUPIROCIN 2% OINT 1 APPLIC/GM SYR EACH NARE SCH ×2 (08:15→21:09)
[2017-06-29] MEDS: clonazePAM 0.5 MG TAB PO SCH ×4 (08:15→21:08)
[2017-06-29] MEDS: MONTELUKAST SODIUM 10 MG TAB PO SCH (08:15)
[2017-06-29] MEDS: PANTOPRAZOLE SODIUM 40 MG VIAL IV PUSH SCH ×2 (08:15→21:09)
[2017-06-29] MEDS: FOLIC ACID 1 MG TAB PO SCH (08:16)
[2017-06-29] MEDS: PRAVASTATIN SOD 20 MG TAB PO SCH (08:16)
[2017-06-29] MEDS ORDERED: METHOTREXATE 2.5 MG TAB PO SCH (09:00)
[2017-06-29] MEDS ORDERED: HYDROmorphone HCL PF 1 MG/ML VIAL IV PUSH PRN (09:15)
[2017-06-29] MEDS ORDERED: PROCHLORPERAZINE INJ 10 MG/2 ML VIAL IV PUSH PRN (09:15)
--- NOTE | 2017-06-29 09:17 | PD.CONS ---
[facility] Consult Requested By Dr. Zhao Reason for Consult Medical management, tx from ICU Primary Care Physician Drea Mayers D.O. Diagnoses: (1) MS (multiple sclerosis) (2) Allergic rhinitis (3) GI bleed (4) Gastroparesis (5) Elevated partial thromboplastin time (PTT) (6) CKD (chronic kidney disease) stage 3, GFR 30-59 ml/min (7) Leucocytosis (8) Depression (9) Hyperlipidemia (10) Hypertension (11) Hypothyroidism (12) GERD (gastroesophageal reflux disease) (13) Ankylosing spondylitis History of Present Illness This is a 62-year-old female with known history of hypertension, hyperlipidemia, gastroesophageal reflux, history of breast cancer, hypothyroidism, multiple sclerosis, restless leg syndrome, history of trigeminal neuralgia. Patient presented to the emergency room on 06/27/2017 with complaint of bright red blood per rectum, has history of gastroparesis, colonic polyps and GERD.Patient indicated she had 2 episodes of syncope when standing and after using toilet. She did hit her head and has left periorbital bruising. Has had previous polypectomy. Had an endoscopy 2 years ago that revealed gastric reflux disease. No alcohol use. No NSAID use. Patient is not on any anticoagulation. The emergency room, patient was noted hypotensive, blood pressure dropped to 70s. She was initially admitted to intensive care services. Gastroenterology was consulted. She was positive for bright red blood per rectum associated with some dark blood. H&H was stable. She had EGD on 06/27/2017 showing LA Class esophagitis. 2. Erythematous gastritis in gastric antrum, biopsied. 3. Normal duodenal mucosa in the bulb and second portion of the duodenum. 4. Retroflexed views revealed no abnormalities. Colonoscopy on --1. 20 x 25cm circumferential colitis was found in the sigmoid colon; The mucosa was congested, erythematous, friable and had granularity; Consistent with ischemic 2. Retroflexed views revealed internal hemorrhoids 3. Retroflexed views revealed medium internal hemorrhoids 4. Revealed external hemorrhoids. CT Abdomen/Pelvis 06/28/17--1. Long segment, mostly left-sided colitis, probably infectious. No abscess, perforation or obstruction. 2. Small, nonspecific perihepatic ascites. 3. Patchy infiltrate of both lung bases. Patient received 2 units of packed cells , H&H is 14.7/43.5. She has not had any more rectal bleeding. Patient hemodynamically stable. She was also noted an acute kidney injury, creatinine 1.8, renal function has improved after IV fluids. Potassium is 3.1, she's on potassium replacement protocol. At this time, patient is complaining of a severe migraine, indicates the Imitrex doesn't work. She is very nauseous and light is bothering her. Hospitalist services are requested to assume medical management. Review of Systems Constitutional: DENIES: Diaphoretic episodes, Fatigue, Fever, Weight gain, Weight loss, Chills, Dizziness, Change in appetite, Night Sweats Endocrine: DENIES: Abnorml menstrual pattern, Heat/cold intolerance, Polydipsia , Polyuria, Polyphagia Eyes: DENIES: Blurred vision, Diplopia, Eye inflammation, Eye pain, Vision loss , Photosensitivity, Double Vision Ears, nose, mouth, throat: DENIES: Tinnitus, Hearing loss, Vertigo, Nasal discharge, Oral lesions, Throat pain, Hoarseness, Ear Pain, Running Nose, Epistaxis, Sinus Pain, Toothache, Odynophagia Respiratory: DENIES: Apneas, Cough, Snoring, Wheezing, Hemoptysis, Sputum production, Shortness of breath Cardiovascular: DENIES: Chest pain, Palpitations, Syncope, Dyspnea on Exertion , PND, Lower Extremity Edema, Orthopnea, Claudication Gastrointestinal: COMPLAINS OF: Bloody stools (resolving), Diarrhea, DENIES: Abdominal pain, Black stools, Constipation, Nausea, Vomiting, Difficulty Swallowing, Anorexia Genitourinary: DENIES: Abnormal vaginal bleeding, Dysmenorrhea, Dyspareunia, Sexual dysfunction, Urinary frequency, Urinary incontinence, Urgency, Hematuria , Dysuria, Nocturia, Vaginal discharge Musculoskeletal: COMPLAINS OF: Back pain, DENIES: Joint pain, Muscle aches, Stiffness, Joint Swelling, Neck pain Integumentary: DENIES: Abnormal pigmentation, Pruritus, Rash, Nail changes, Breast masses, Breast skin changes, Nipple discharge Hematologic/lymphatic: DENIES: Bruising, Lymphadenopathy Immunologic/allergic: DENIES: Eczema, Urticaria Neurologic: COMPLAINS OF: Headache, DENIES: Abnormal gait, Localized weakness, Paresthesias, Seizures, Speech Problems, Tremor, Poor Balance Psychiatric: COMPLAINS OF: Anxiety, DENIES: Confusion, Mood changes, Depression , Hallucinations, Agitation, Suicidal Ideation, Homicidal Ideation, Delusions Past Family Social History Past Medical History CKD III Previous admissions for chest pain, had stress test in 2015 that was negative. Hypertension Hyperlipidemia Multiple sclerosis Restless leg syndrome Gastroesophageal reflux Hypothyroidism History of breast cancer History trigeminal neuralgia, previously treated with Botox injections. History of sleep apnea Past Surgical History Bilateral breast lumpectomies Tonsillectomy Appendectomy Stereotactic radiosurgery of left trigeminal nerve History of endoscopy with esophageal stricture dilatation Left wrist carpal tunnel surgery Lasik eye surgery Reported Medications Reported Meds & Active Scripts Active Epipen 2-Corey Inj (Epinephrine) 0.3 Mg/0.3 Ml Pfpen 0.3 Mg IM ONCE PRN Reported Reclast Inj (Zoledronic Acid) 5 Mg/100 Ml Inj 5 Mg IV Q365D Methotrexate 2.5 Mg Tab 2.5 Mg PO Q7D Folic Acid 0.4 Mg Tab 1 Mg PO DAILY Carbamazepine 100 Mg Chew 100 Mg CHEW BID [Ocrevus] 300 Mg IV [id number] Vitamin D3 Ultra Strength (Cholecalciferol) 5,000 Unit Cap 50,000 Units PO 2X MONTH Macrodantin (Nitrofurantoin Macrocrystal) 100 Mg Cap 100 Mg PO 3X WEEK Zantac (Ranitidine HCl) 300 Mg Tab 300 Mg PO DAILY Singulair (Montelukast Sodium) 10 Mg Tab 10 Mg PO DAILY Requip (Ropinirole) 3 Mg Tab 3 Mg PO HS Reclast Inj (Zoledronic Acid) 5 Mg/100 Ml Inj 5 Mg IV ONCE Protonix (Pantoprazole Sodium) 20 Mg Tab 20 Mg PO BID Pravachol (Pravastatin) 20 Mg Tab 20 Mg PO DAILY Losartan (Losartan Potassium) 100 Mg Tab 50 Mg PO DAILY Klonopin (Clonazepam) 0.5 Mg Tab 1.5 Mg PO QID Potassium Chloride 1 Pow Pow 10 Meq PO DAILY Effexor (Venlafaxine HCl) 75 Mg Tab 150 Mg PO DAILY Carvedilol 12.5 Mg Tab 6.25 Mg PO BID Calcium 1000 + D (Calcium Carbonate-Cholecalciferol) 1,000-800 Mg-Unit Tab 2, 000 Tab PO DAILY Synthroid (Levothyroxine Sodium) 112 Mcg Tab 112 Mcg PO DAILY Allergies: Coded Allergies: kiwi (Unverified Allergy, Severe, THROAT SWELLS, 06/27/17) adhesive (Unverified Allergy, Intermediate, BLISTERS, REDNESS AT PORT SITE , ITCHING, 06/27/17) latex (Unverified Allergy, Intermediate, BLISTERS, 06/27/17) povidone-iodine (Unverified Allergy, Intermediate, BLISTERS, REDNESS AT PORT SITE, 06/27/17) Active Ordered Medications Inpatient Medications Acetaminophen (Tylenol) 650 mg Q4H PRN PO HEADACHE OR FEVER Last administered on 06/29/17 05:16; Start 06/28/17 at 22:30 Carbamazepine (TEGretol CHEW) 100 mg BID CHEW Last administered on 06/29/17 08 :16; Start 06/28/17 at 09:00 Chlorhexidine Gluconate (Chlorhexidine 2% Cloth) 3 pack UNSCH PRN TOP HYGIENIC CARE; Start 06/27/17 at 14:45 Clonazepam (KlonoPIN) 1.5 mg QID PO Last administered on 06/29/17 08:15; Start 06/28/17 at 09:00 Dextrose (D50w (Vial) Inj) 50 ml UNSCH PRN IV HYPOGLYCEMIA-SEE COMMENTS; Start 06/28/17 at 08:30 Diatrizoate Meglum/ Diatrizoate Sod ( Gastroview Liq) 18 ml ONCE ONCE PO Last administered on 06/28/17 10:45; Start 06/28/17 at 10:15; Stop 06/28/17 at 10:25; Status DC Epinephrine HCl (Epipen Inj) 0.3 mg ONCE PRN IM ALLERGIC REACTION; Start at 03:45; Stop 07/05/17 at 03:44 Folic Acid (Folate) 1 mg DAILY PO Last administered on 06/29/17 08:16; Start 06/28/17 at 09:00 Glucagon (Glucagon Inj) 1 mg UNSCH PRN OTHER HYPOGLYCEMIA-SEE COMMENTS; Start 06/28/17 at 08:30 Hydromorphone HCl (Dilaudid Pf Inj) 1 mg Q4H PRN IV PUSH PAIN SCALE 8 TO 10/ CHEST PAIN; Start 06/29/17 at 09:15; Status UNV Insulin Human Regular (NovoLIN R SUPPLEMENTAL SCALE) 1 Q6H SQ ; Start 06/28/17 at 08:30 Levothyroxine Sodium (Synthroid) 112 mcg DAILY@0600 PO Last administered on 05:15; Start 06/28/17 at 06:00 Magnesium Oxide (Mag-Ox) 800 mg UNSCH PRN PO For Magnesium 1.2 - 1.6 mg/dL; Start 06/27/17 at 14:45 Magnesium Sulfate 2 gm/Sodium Chloride 100 ml @ 50 mls/hr UNSCH PRN IV For Magnesium 1.2 - 1.6 mg/dL; Start 06/27/17 at 14:45 Magnesium Sulfate 4 gm/Sodium Chloride 100 ml @ 50 mls/hr UNSCH PRN IV For Magnesium 0.9 - 1.1 mg/dL; Start 06/27/17 at 14:45 Methotrexate (Rheumatrex) 2.5 mg Q7D PO Last administered on 06/29/17 08:17; Start 06/29/17 at 09:00 Metronidazole (Flagyl) 500 mg Q8HR PO Last administered on 06/29/17 05:15; Start 06/28/17 at 17:15 Miscellaneous Information ALL NURSING DEPARTME... UNSCH PRN .XX SEE LABEL COMMENTS; Start 06/28/17 at 09:43; Stop 06/29/17 at 09:42 Montelukast Sodium (Singulair) 10 mg DAILY PO Last administered on 06/29/17 08 :15; Start 06/28/17 at 09:00 Mupirocin (Bactroban Nasal 2% Oint) 1 applic Taper BID EACH NARE Last administered on 06/29/17 08:15; Start 06/28/17 at 09:00; Stop 06/24/18 at 08:59 Nitrofurantoin Macrocrystals (Macrobid) 100 mg MoWeFr@0900 PO ; Start 06/30/17 at 09:00 Ondansetron HCl (Zofran Inj) 4 mg Q6H PRN IV PUSH NAUSEA OR VOMITING; Start at 14:45 Pantoprazole Sodium (Protonix Inj) 40 mg BID IV PUSH Last administered on 08:15; Start 06/27/17 at 21:00 Polyethylene Glycol/ Electrolytes (Colyte Liq) 4,000 ml ONCE ONCE PO Last administered on 06/27/17 19:53; Start 06/27/17 at 17:45; Stop 06/27/17 at 17:46 ; Status DC Potassium Phosphate (K-Phos) 2,000 mg UNSCH PRN PO/TUBE SEE LABEL COMMENTS; Start 06/27/17 at 14:45 Potassium Phosphate 30 mmol/ Sodium Chloride 260 ml @ 42 mls/hr UNSCH PRN IV SEE LABEL COMMENTS Last administered on 06/28/17 05:56; Start 06/27/17 at 14:45 Potassium Chloride 100 ml @ 25 mls/hr UNSCH PRN IV For Potassium 3.3 - 3.5 mEq /L; Start 06/27/17 at 14:45 Pravastatin Sodium (Pravachol) 20 mg DAILY PO Last administered on 06/29/17 08 :16; Start 06/28/17 at 09:00 Prochlorperazine Edisylate (Compazine Inj) 5 mg Q4H PRN IV PUSH NAUSEA OR VOMITING; Start 06/29/17 at 09:15; Status UNV Ropinirole HCl (Requip) 3 mg HS PO Last administered on 06/28/17 20:38; Start 06/28/17 at 21:00 Sodium Chloride 1,000 ml @ 75 mls/hr [id number] IV Last administered on 03:18; Start 06/27/17 at 14:45 Sodium Chloride (NS Flush) 2 ml UNSCH PRN IVF FLUSH AFTER USING IV ACCESS; Start 06/27/17 at 12:30 Sodium Phosphate 30 mmol/Sodium Chloride 250 ml @ 42 mls/hr UNSCH PRN IV For Phosphorus < 2.5 mg/dL; Start 06/27/17 at 14:45 Venlafaxine HCl (Effexor) 150 mg DAILY PO Last administered on 06/29/17 08:15 ; Start 06/28/17 at 09:00 Family History Reviewed and significant for father having coronary bypass surgery. He subsequently from colon cancer. Grandmother with cancer, aunt with diabetes Social History Patient is , has grown children. Quit smoking in 1990, prior to that she smoked up to 4 pack of cigarettes a day since she was a teenager. No alcohol, no illicit drugs. Uses a walker and cane for ambulation. Physical Exam Vital Signs Vital Signs Date Time Temp Pulse Resp B/P (MAP) Pulse Ox O2 Delivery O2 Flow Rate FiO2 06/29/17 06:00 69 06/29/17 04:00 98.9 70 19 118/69 (85) 94 06/29/17 04:00 70 06/29/17 02:00 73 06/29/17 00:00 78 06/29/17 00:00 99.2 78 20 112/68 (83) 22 06/28/17 22:00 87 06/28/17 20:00 99.8 84 22 98/57 (71) 95 06/28/17 20:00 84 06/28/17 18:00 83 06/28/17 16:00 79 06/28/17 16:00 98.4 79 23 81/55 (64) 90 06/28/17 14:00 88 06/28/17 12:00 99.6 85 26 113/81 (92) 96 06/28/17 12:00 85 06/28/17 10:08 74 16 94/59 (71) 97 Nasal Cannula 2 06/28/17 10:00 79 06/28/17 09:55 75 16 87/61 (70) 97 Nasal Cannula 2 06/28/17 09:47 98.6 81 16 89/57 (68) 92 Nasal Cannula 2 Physical Exam GENERAL: This is a well-nourished, well-developed patient, in no apparent distress. SKIN: No rashes, ecchymoses or lesions. Cool and dry. HEAD: Atraumatic. Normocephalic. No temporal or scalp tenderness. EYES: Pupils equal round and reactive. Extraocular motions intact. Left periorbital swelling and bruising. No scleral icterus. No injection or drainage. ENT: Nose without bleeding, purulent drainage or septal hematoma. Throat without erythema, tonsillar hypertrophy or exudate. Uvula midline. Airway patent. NECK: Trachea midline. No JVD or lymphadenopathy. Supple, nontender, no meningeal signs. CARDIOVASCULAR: Regular rate and rhythm without murmurs, gallops, or rubs. RESPIRATORY: Clear to auscultation. Breath sounds equal bilaterally. No wheezes , rales, or rhonchi. GASTROINTESTINAL: Abdomen soft, non-tender, nondistended. No hepato-splenomegaly , or palpable masses. No guarding. Noted with brown loose stool. MUSCULOSKELETAL: Extremities without clubbing, cyanosis, or edema. No joint tenderness, effusion, or edema noted. No calf tenderness. Negative Homans sign bilaterally. NEUROLOGICAL: Awake, alert oriented 3. Anxious, complaining of migraine. No focal deficits. Bilateral lower extremity weakness 4 out of 5 Laboratory Laboratory Tests Test 06/28/17 13:14 06/28/17 16:00 06/28/17 18:00 06/29/17 04:27 Hemoglobin 13.6 13.3 13.1 Hematocrit 40.2 39.3 38.8 Potassium Level 3.5 3.1 Phosphorus Level 3.0 Stool C. difficile Toxin (PCR) NEGATIVE Stl C. difficile Toxin Epiderm 027 PRESUMPTIVE NEGATIVE White Blood Count 7.0 Red Blood Count 4.40 Mean Corpuscular Volume 88.3 Mean Corpuscular Hemoglobin 29.8 Mean Corpuscular Hemoglobin Concent 33.7 Red Cell Distribution Width 15.7 Platelet Count 169 Mean Platelet Volume 6.9 Neutrophils (%) (Auto) 65.9 Lymphocytes (%) (Auto) 19.1 Monocytes (%) (Auto) 11.9 Eosinophils (%) (Auto) 2.9 Basophils (%) (Auto) 0.2 Neutrophils # (Auto) 4.6 Lymphocytes # (Auto) 1.3 Monocytes # (Auto) 0.8 Eosinophils # (Auto) 0.2 Basophils # (Auto) 0.0 CBC Comment DIFF FINAL Differential Comment Blood Urea Nitrogen 6 Creatinine 0.85 Random Glucose 95 Calcium Level 7.8 Sodium Level 144 Chloride Level 112 Carbon Dioxide Level 27.0 Anion Gap 5 Estimat Glomerular Filtration Rate 68 Result Diagram: 06/29/17 0427 06/29/17 0427 Imaging Last Impressions Abdomen/Pelvis CT 06/28/17 0000 Signed Impressions: Service Date/Time: Wednesday, June 28, 2017 16:24 - CONCLUSION: 1. Long segment, mostly left-sided colitis, probably infectious. No abscess, perforation or obstruction. 2. Small, nonspecific perihepatic ascites. 3. Patchy infiltrate of both lung bases. Ghulam Chavez MD Maxillofacial CT 06/27/17 1536 Signed Impressions: Service Date/Time: Tuesday, June 27, 2017 15:36 - CONCLUSION: Minimal soft tissue swelling, negative for fracture. Delvin Louis MD FACR Head CT 06/27/17 0000 Signed Impressions: Service Date/Time: Tuesday, June 27, 2017 15:36 - CONCLUSION: Intracranial contents unremarkable. Delvin Louis MD FACR A/P Diagnosis: (1) GI bleed ICD Codes: K92.2 - Gastrointestinal hemorrhage, unspecified Status: Acute (2) Migraine ICD Codes: G43.909 - Migraine, unspecified, not intractable, without status migrainosus Status: Acute (3) Gastroparesis ICD Codes: K31.84 - Gastroparesis Status: Chronic (4) CKD (chronic kidney disease) stage 3, GFR 30-59 ml/min ICD Codes: N18.3 - Chronic kidney disease, stage 3 (moderate) Status: Acute (5) GERD (gastroesophageal reflux disease) ICD Codes: K21.9 - Gastro-esophageal reflux disease without esophagitis Status: Acute (6) Ankylosing spondylitis ICD Codes: M45.9 - Ankylosing spondylitis of unspecified sites in spine (7) Hypertension ICD Codes: I10 - Essential (primary) hypertension Status: Chronic (8) Hyperlipidemia ICD Codes: E78.5 - Hyperlipidemia, unspecified Status: Chronic (9) Depression ICD Codes: F32.9 - Major depressive disorder, single episode, unspecified Status: Chronic (10) MS (multiple sclerosis) ICD Codes: G35 - Multiple sclerosis Status: Chronic Assessment and Plan Thank you for this consultation, we will assume medical management 62-year-old female with history of GERD, colonic polyp's, gastroparesis. Presented with syncopal episodes, complaining of rectal bleeding. Was found hypotensive blood pressure 70/50. GI bleed, symptomatic with syncopal episodes and hypotension S/P EGD on 06/27/2017 showing LA Class esophagitis. 2. Erythematous gastritis in gastric antrum, biopsied. 3. Normal duodenal mucosa in the bulb and second portion of the duodenum. 4. Retroflexed views revealed no abnormalities. S/P Colonoscopy on 06/28/27 --1. 20 x 25cm circumferential colitis was found in the sigmoid colon; The mucosa was congested, erythematous, friable and had granularity; Consistent with ischemic 2. Retroflexed views revealed internal hemorrhoids 3. Retroflexed views revealed medium internal hemorrhoids 4. Revealed external hemorrhoids. C. difficile negative GERD Gastroparesis -Appreciate gastroenterology input -Continue with Flagyl 500 mg by mouth every 8 -Continue Protonix 40 mg IV twice a day -Tolerating her healthy diet well, continue. -Monitor H&H, stable. No active bleeding Acute kidney injury Hypokalemia -Renal function improved -Continue cautious hydration -Monitor BMP -Continue electrolyte replacement Recurrent UTIs, self catheterizes -Continue with Macrobid History of MS, stable -Continue to monitor -Physical therapy evaluation History of ankylosing spondylosis -Continue with medical management Migraine -Continue antiemetics when necessary -Dilaudid 1 mg IV push every 4 when necessary for severe pain Depression -Continue with medical management Hyperlipidemia -Continue with medical management SCDs for DVT prophylaxis Protonix for GI prophylaxis Plan of care discussed with the patient, attending and registered nurse. Further management of the patient will be dependent on the hospital course This patient was seen by myself and Dr. Miller, this consultation is written on his behalf Thank you for allowing us to participate in the care of this patient Problem Qualifiers (1) Allergic rhinitis: Qualified Codes: J30.9 - Allergic rhinitis, unspecified (2) GI bleed: Qualified Codes: K92.2 - Gastrointestinal hemorrhage, unspecified (3) Leucocytosis: Qualified Codes: D72.829 - Elevated white blood cell count, unspecified (4) Depression: Qualified Codes: F32.9 - Major depressive disorder, single episode, unspecified (5) Hyperlipidemia: Qualified Codes: E78.5 - Hyperlipidemia, unspecified (6) Hypertension: Qualified Codes: I10 - Essential (primary) hypertension (7) Hypothyroidism: Qualified Codes: E03.9 - Hypothyroidism, unspecified (8) GERD (gastroesophageal reflux disease): Qualified Codes: K21.0 - Gastro-esophageal reflux disease with esophagitis (9) Ankylosing spondylitis: Qualified Codes: M45.9 - Ankylosing spondylitis of unspecified sites in spine (10) Migraine: Qualified Codes: G43.909 - Migraine, unspecified, not intractable, without status migrainosus Pamela Sanchez Jun 29, 2017 09:17
[2017-06-29] MEDS ORDERED: SODIUM CHLORIDE 0.9% FLUSH 10 ML FLUSH IVF PRN (09:30)
[2017-06-29 12:38] LABS: HEMATOCRIT 43.5 % (35.0-46.0)
[2017-06-29 12:41] LABS: REVIEW FLAG FINAL
--- NOTE | 2017-06-29 12:51 | HHI.GIFU ---
Subjective Remarks Lying in bed in no apparent distress. (Kenya Villatoro) Objective Vitals I&O Vital Signs Date Time Temp Pulse Resp B/P (MAP) Pulse Ox O2 Delivery O2 Flow Rate FiO2 06/29/17 10:35 14 06/29/17 10:00 75 06/29/17 08:00 71 06/29/17 08:00 98.4 71 20 131/75 (93) 95 06/29/17 06:00 69 06/29/17 04:00 98.9 70 19 118/69 (85) 94 06/29/17 04:00 70 06/29/17 02:00 73 06/29/17 00:00 78 06/29/17 00:00 99.2 78 20 112/68 (83) 22 06/28/17 22:00 87 06/28/17 20:00 99.8 84 22 98/57 (71) 95 06/28/17 20:00 84 06/28/17 18:00 83 06/28/17 16:00 79 06/28/17 16:00 98.4 79 23 81/55 (64) 90 06/28/17 14:00 88 I/O 06/28/17 06/28/17 06/28/17 06/29/17 06/29/17 06/29/17 07:00 15:00 23:00 07:00 15:00 23:00 Intake Total 1424 ml 731 ml 835 ml 1240 ml Output Total 1125 ml 1450 ml 850 ml Balance 299 ml 731 ml -615 ml 390 ml Intake Oral 500 ml 240 ml IV Total 729 ml 531 ml 335 ml 1000 ml Packed Cells 675 ml Blood Product IV Normal Saline Flush 20 ml Other 200 ml Output Urine Total 1125 ml 1450 ml 850 ml # Bowel Movements 8 2 2 Laboratory Laboratory Tests Test 06/28/17 13:14 06/28/17 16:00 06/28/17 18:00 06/29/17 04:27 Hemoglobin 13.6 13.3 13.1 Hematocrit 40.2 39.3 38.8 Potassium Level 3.5 3.1 Phosphorus Level 3.0 Stool C. difficile Toxin (PCR) NEGATIVE Stl C. difficile Toxin Epiderm 027 PRESUMPTIVE NEGATIVE White Blood Count 7.0 Red Blood Count 4.40 Mean Corpuscular Volume 88.3 Mean Corpuscular Hemoglobin 29.8 Mean Corpuscular Hemoglobin Concent 33.7 Red Cell Distribution Width 15.7 Platelet Count 169 Mean Platelet Volume 6.9 Neutrophils (%) (Auto) 65.9 Lymphocytes (%) (Auto) 19.1 Monocytes (%) (Auto) 11.9 Eosinophils (%) (Auto) 2.9 Basophils (%) (Auto) 0.2 Neutrophils # (Auto) 4.6 Lymphocytes # (Auto) 1.3 Monocytes # (Auto) 0.8 Eosinophils # (Auto) 0.2 Basophils # (Auto) 0.0 CBC Comment DIFF FINAL Differential Comment Blood Urea Nitrogen 6 Creatinine 0.85 Random Glucose 95 Calcium Level 7.8 Sodium Level 144 Chloride Level 112 Carbon Dioxide Level 27.0 Anion Gap 5 Estimat Glomerular Filtration Rate 68 Imaging Last Impressions Abdomen/Pelvis CT 06/28/17 0000 Signed Impressions: Service Date/Time: Wednesday, June 28, 2017 16:24 - CONCLUSION: 1. Long segment, mostly left-sided colitis, probably infectious. No abscess, perforation or obstruction. 2. Small, nonspecific perihepatic ascites. 3. Patchy infiltrate of both lung bases. Ghulam Chavez MD Maxillofacial CT 06/27/17 1536 Signed Impressions: Service Date/Time: Tuesday, June 27, 2017 15:36 - CONCLUSION: Minimal soft tissue swelling, negative for fracture. Delvin Louis MD FACR Head CT 06/27/17 0000 Signed Impressions: Service Date/Time: Tuesday, June 27, 2017 15:36 - CONCLUSION: Intracranial contents unremarkable. Delvin Louis MD FACR Physical Exam HEENT: Normocephalic; atraumatic; no jaundice. NECK: Neck is supple CHEST: CTA CARDIAC: RRR ABDOMEN: Soft, nondistended, mild epigastric abdominal tenderness. Bowel sounds active. EXTREMITIES: No clubbing, cyanosis, or edema. SKIN: Normal; no rash; no jaundice. FRUIT DRYER: No focal deficits; alert and oriented x 3. (Kenya Villatoro) Assessment and Plan Plan ASSESSMENT: GIB, with bright red blood per rectum associated with some dark blood. HH stable. EGD 06/27--1. LA Class esophagitis. 2. Erythematous gastritis in gastric antrum, biopsied. 3. Normal duodenal mucosa in the bulb and second portion of the duodenum. 4. Retroflexed views revealed no abnormalities. Colonoscopy 06/28--1. 20 x 25cm circumferential colitis was found in the sigmoid colon; The mucosa was congested, erythematous, friable and had granularity; Consistent with ischemic 2. Retroflexed views revealed internal hemorrhoids 3. Retroflexed views revealed medium internal hemorrhoids 4. Revealed external hemorrhoids. CT Abdomen/Pelvis 06/28/17--1. Long segment, mostly left-sided colitis, probably infectious. No abscess, perforation or obstruction. 2. Small, nonspecific perihepatic ascites. 3. Patchy infiltrate of both lung bases. PLAN: - Await biopsy results - Yearly Hemoccult - Repeat colonoscopy in 3 months, pending biopsy results - Repeat EGD in 3 years, pending biopsy results - Continue PPI - Monitor labs - Supportive care - Further recommendations to follow based on results of above. Patient seen and examined by Dr. Garcia and myself and this note is written on his behalf. (Kenya Villatoro) Physician Comments Seen and examined with JANNETH, doing well. Ct noted, consitent with colonoscopy findings. Await biopsies, advance diet. GI fu upon dc. Will sign off, thank you (Skip Garcia MD) Kenya Villatoro Jun 29, 2017 12:51 Skip Garcia MD Jun 29, 2017 14:52
[2017-06-30] VITALS (10 sets, daily range): BP systolic 111–146; BP diastolic 69–93; PULSE 64–92; RESP 17–21; TEMP 97.8–98.4; O2SAT 94–98
[2017-06-30] MEDS: CHLORHEXIDINE GLUCONATE 2 % 1 PACK (2 CLOTHS) TOP SCH (02:26)
[2017-06-30] MEDS: INSULIN NovoLIN REGULAR SUPPLEMENTAL SCALE SQ SCH ×4 (02:26→22:31)
[2017-06-30 04:17] LABS: HEMATOCRIT 40.9 % (35.0-46.0); MEAN CORPUSCULAR HEMOGLOBIN 29.9 PG (27.0-34.0); MEAN CORPUSCULAR HGB CONC 33.2 % (32.0-36.0); PLATELET COUNT 161 TH/MM3 (150-450); RED BLOOD COUNT 4.54 MIL/MM3 (4.00-5.30); RED CELL DISTRIBUTION WIDTH 15.9 % (11.6-17.2); REVIEW FLAG FINAL; WHITE BLOOD COUNT 7.1 TH/MM3 (4.0-11.0)
[2017-06-30 04:34] LABS: BICARBONATE 25.2 MEQ/L (21.0-32.0); POTASSIUM 4.1 MEQ/L (3.5-5.1)
[2017-06-30] MEDS: ACETAMINOPHEN 325 MG TAB PO PRN ×2 (05:21→12:58)
[2017-06-30] MEDS: metroNIDAZOLE 500 MG TAB PO SCH ×3 (05:21→22:22)
[2017-06-30] MEDS: LEVOTHYROXINE SODIUM 112 MCG TAB PO SCH (05:21)
[2017-06-30] MEDS: PANTOPRAZOLE SODIUM 40 MG VIAL IV PUSH SCH ×2 (08:38→22:22)
[2017-06-30] MEDS: MONTELUKAST SODIUM 10 MG TAB PO SCH (08:39)
[2017-06-30] MEDS: MUPIROCIN 2% OINT 1 APPLIC/GM SYR EACH NARE SCH ×2 (08:39→22:23)
[2017-06-30] MEDS: VENLAFAXINE HCL 75 MG TAB PO SCH (08:39)
[2017-06-30] MEDS: clonazePAM 0.5 MG TAB PO SCH ×4 (08:39→22:22)
[2017-06-30] MEDS: PRAVASTATIN SOD 20 MG TAB PO SCH (08:40)
[2017-06-30] MEDS: FOLIC ACID 1 MG TAB PO SCH (08:40)
[2017-06-30] MEDS ORDERED: NITROFURANTOIN MONOHYD MACROCR 100 MG CAP PO SCH (09:00)
--- NOTE | 2017-06-30 12:47 | HHI.PR ---
Subjective Subjective Remarks Resting in the bed Alert oriented Denies any acute abdominal pain Asking about going home, states she has a service dog needs her Afebrile Review of Systems Constitutional Constitutional: Weakness (improved) Constitutional Remarks 10 point ROS reviewed GI/Abdomen GI/Abdominal Exam: Diarrhea (improving with medical management) GI/Abdomen Remarks DC rectal Carter today Psychiatric Psychiatric: Normal Mood, Anxiety (mild) Vitals/Results Vital Signs Vital Signs Date Time Temp Pulse Resp B/P (MAP) Pulse Ox O2 Delivery O2 Flow Rate FiO2 06/30/17 10:00 68 06/30/17 08:00 97.9 71 21 115/78 (90) 95 06/30/17 08:00 70 06/30/17 06:00 71 06/30/17 04:00 98.4 76 20 111/72 (85) 96 06/30/17 04:00 76 06/30/17 02:00 67 06/30/17 00:00 64 06/30/17 00:00 98.2 64 18 112/69 (83) 98 06/29/17 22:00 77 06/29/17 20:00 97.6 66 18 95/58 (70) 98 06/29/17 20:00 66 06/29/17 18:00 63 06/29/17 16:00 66 06/29/17 16:00 98.0 66 12 115/75 (88) 97 06/29/17 14:00 64 CBC/BMP: 06/30/17 0400 06/30/17 0400 Lab Results Laboratory Tests Test 06/29/17 17:15 06/30/17 04:00 Potassium Level 4.1 MEQ/L 4.1 MEQ/L White Blood Count 7.1 TH/MM3 Red Blood Count 4.54 MIL/MM3 Hemoglobin 13.6 GM/DL Hematocrit 40.9 % Mean Corpuscular Volume 90.0 FL Mean Corpuscular Hemoglobin 29.9 PG Mean Corpuscular Hemoglobin Concent 33.2 % Red Cell Distribution Width 15.9 % Platelet Count 161 TH/MM3 Mean Platelet Volume 7.3 FL Blood Urea Nitrogen 5 MG/DL Creatinine 0.75 MG/DL Random Glucose 99 MG/DL Calcium Level 7.7 MG/DL Sodium Level 142 MEQ/L Chloride Level 111 MEQ/L Carbon Dioxide Level 25.2 MEQ/L Anion Gap 6 MEQ/L Estimat Glomerular Filtration Rate 79 ML/MIN Current Medications Administered Medications Medications (Trade) Dose Ordered Sig/Abril Route PRN Reason Start Time Stop Time Status Last Admin Dose Admin Potassium Chloride 100 ml @ 50 mls/hr Q2H PRN IV For Potassium 2.8 - 3.2 mEq/L 06/27/17 14:45 06/29/17 11:20 Potassium Chloride 100 ml @ 50 mls/hr Q2H PRN IV For Potassium 2.8 - 3.2 mEq/L 06/27/17 14:45 06/29/17 08:16 Potassium Phosphate 30 mmol/ Sodium Chloride 260 ml @ 42 mls/hr UNSCH PRN IV SEE LABEL COMMENTS 06/27/17 14:45 06/28/17 05:56 Sodium Chloride 1,000 ml @ 75 mls/hr [id number] IV 06/27/17 14:45 06/29/17 23:37 Pantoprazole Sodium (Protonix Inj) 40 mg BID IV PUSH 06/27/17 21:00 06/30/17 08:38 Ondansetron HCl (Zofran Inj) 4 mg Q6H PRN IV PUSH NAUSEA OR VOMITING 06/27/17 14:45 06/29/17 09:21 Chlorhexidine Gluconate (Chlorhexidine 2% Cloth) 3 pack Taper DAILY@04 TOP 06/28/17 04:00 06/24/18 03:59 06/30/17 02:26 Mupirocin (Bactroban Nasal 2% Oint) 1 applic Taper BID EACH NARE 06/28/17 09:00 06/24/18 08:59 06/30/17 08:39 Carbamazepine (TEGretol CHEW) 100 mg BID CHEW 06/28/17 09:00 06/30/17 08:39 Clonazepam (KlonoPIN) 1.5 mg QID PO 06/28/17 09:00 06/30/17 08:39 Folic Acid (Folate) 1 mg DAILY PO 06/28/17 09:00 06/30/17 08:40 Levothyroxine Sodium (Synthroid) 112 mcg DAILY@0600 PO 06/28/17 06:00 06/30/17 05:21 Methotrexate (Rheumatrex) 2.5 mg Q7D PO 06/29/17 09:00 06/29/17 08:17 Montelukast Sodium (Singulair) 10 mg DAILY PO 06/28/17 09:00 06/30/17 08:39 Pravastatin Sodium (Pravachol) 20 mg DAILY PO 06/28/17 09:00 06/30/17 08:40 Nitrofurantoin Macrocrystals (Macrobid) 100 mg MoWeFr@0900 PO 06/30/17 09:00 06/30/17 08:39 Ropinirole HCl (Requip) 3 mg HS PO 06/28/17 21:00 06/29/17 21:09 Venlafaxine HCl (Effexor) 150 mg DAILY PO 06/28/17 09:00 06/30/17 08:39 Metronidazole (Flagyl) 500 mg Q8HR PO 06/28/17 17:15 06/30/17 05:21 Acetaminophen (Tylenol) 650 mg Q4H PRN PO HEADACHE OR FEVER 06/28/17 22:30 06/30/17 05:21 Hydromorphone HCl (Dilaudid Pf Inj) 1 mg Q4H PRN IV PUSH PAIN SCALE 8 TO 10/CHEST PAIN 06/29/17 09:15 06/29/17 10:05 Prochlorperazine Edisylate (Compazine Inj) 5 mg Q4H PRN IV PUSH NAUSEA OR VOMITING 06/29/17 09:15 06/29/17 12:55 Physical Exam General General Appearance: Well Developed, No Acute Distress Eyes Eye Exam: Pupils Reactive Ears & Nose Ears & Nose Exam: Nasal Mucosa [place] Throat Throat Exam: Oral Mucosa [facility] & Moist Neck Neck Exam: Neck Supple Pulmonary Resp Exam: Clear Bilaterally Cardiology CV Exam: Regular Gastrointestinal/Abdomen GI Exam: Soft, Non-Tender, Bowel Sounds Present GI Remarks Denies any nausea or acute pain Musculoskeletal MS Exam: Joints Intact Integumentary Skin Exam: Warm, Dry, Intact Extremeties Extremities Exam: No Edema Neurologic Neuro Exam: Awake, Oriented, Speech Clear, Moving All Extremities Assessment/Plan Problem List: (1) MS (multiple sclerosis) ICD Codes: G35 - Multiple sclerosis Status: Chronic (2) Allergic rhinitis ICD Codes: J30.9 - Allergic rhinitis, unspecified (3) GI bleed ICD Codes: K92.2 - Gastrointestinal hemorrhage, unspecified Status: Acute (4) Gastroparesis ICD Codes: K31.84 - Gastroparesis Status: Chronic (5) Elevated partial thromboplastin time (PTT) ICD Codes: R79.1 - Abnormal coagulation profile (6) CKD (chronic kidney disease) stage 3, GFR 30-59 ml/min ICD Codes: N18.3 - Chronic kidney disease, stage 3 (moderate) Status: Acute (7) Leucocytosis ICD Codes: D72.829 - Elevated white blood cell count, unspecified Status: Acute (8) Depression ICD Codes: F32.9 - Major depressive disorder, single episode, unspecified Status: Chronic (9) Hyperlipidemia ICD Codes: E78.5 - Hyperlipidemia, unspecified Status: Chronic (10) Hypertension ICD Codes: I10 - Essential (primary) hypertension Status: Chronic (11) Hypothyroidism ICD Codes: E03.9 - Hypothyroidism, unspecified Status: Acute (12) GERD (gastroesophageal reflux disease) ICD Codes: K21.9 - Gastro-esophageal reflux disease without esophagitis Status: Acute (13) Ankylosing spondylitis ICD Codes: M45.9 - Ankylosing spondylitis of unspecified sites in spine Assessment/Plan Vital signs reviewed, afebrile BP trends normal Labs reviewed no acute changes GI bleed, symptomatic with syncopal episodes and hypotension, resolved Colitis, sigmoid colon, improvement with meds, 3 stools or less in the past 24 hours S/P EGD on 06/27/2017 showing LA Class esophagitis. 2. Erythematous gastritis in gastric antrum, biopsied. 3. Normal duodenal mucosa in the bulb and second portion of the duodenum. 4. Retroflexed views revealed no abnormalities. S/P Colonoscopy on 06/28/27 --1. 20 x 25cm circumferential colitis was found in the sigmoid colon; The mucosa was congested, erythematous, friable and had granularity; Consistent with ischemic 2. Retroflexed views revealed internal hemorrhoids 3. Retroflexed views revealed medium internal hemorrhoids 4. Revealed external hemorrhoids. C. difficile negative GI will follow as outpatient, continue current medical management, diarrhea improving, rectal Carter DC'd, biopsies pending Acute kidney injury, resolved with by mouth and IV hydration Hypokalemia, resolved and stable Recurrent UTIs, self catheterizes -Continue with Macrobid History of MS, stable, continue medical management, physical therapy to help out of bed and to evaluate and treat History of Migraine Currently denies any acute pain Depression, hyperlipidemia medical management Patient hopeful to go home, asking about going today Will transition out of intensive care, transition home when medically stable, monitor diarrhea SCDs for DVT prophylaxis Protonix for GI prophylaxis Problem Qualifiers (1) Allergic rhinitis: Qualified Codes: J30.9 - Allergic rhinitis, unspecified (2) GI bleed: Qualified Codes: K92.2 - Gastrointestinal hemorrhage, unspecified (3) Leucocytosis: Qualified Codes: D72.829 - Elevated white blood cell count, unspecified (4) Depression: Qualified Codes: F32.9 - Major depressive disorder, single episode, unspecified (5) Hyperlipidemia: Qualified Codes: E78.5 - Hyperlipidemia, unspecified (6) Hypertension: Qualified Codes: I10 - Essential (primary) hypertension (7) Hypothyroidism: Qualified Codes: E03.9 - Hypothyroidism, unspecified (8) GERD (gastroesophageal reflux disease): Qualified Codes: K21.0 - Gastro-esophageal reflux disease with esophagitis (9) Ankylosing spondylitis: Qualified Codes: M45.9 - Ankylosing spondylitis of unspecified sites in spine Julia Diaz Jun 30, 2017 12:47
[2017-07-01] VITALS: BP 161/87; PULSE 64; RESP 18; TEMP 96.9; O2SAT 96
[2017-07-01] MEDS: SODIUM CHLOR 0.9% 1000 ML INJ 1,000 ML IV SCH (01:30)
[2017-07-01] MEDS: INSULIN NovoLIN REGULAR SUPPLEMENTAL SCALE SQ SCH ×3 (03:00→14:30)
[2017-07-01 04:00] VITALS: BP 159/86; PULSE 69; RESP 17; TEMP 97.5; O2SAT 98
[2017-07-01] MEDS: CHLORHEXIDINE GLUCONATE 2 % 1 PACK (2 CLOTHS) TOP SCH (04:00)
[2017-07-01] MEDS: BENZONATATE 100 MG CAP PO PRN ×2 (05:39→09:42)
[2017-07-01] MEDS: metroNIDAZOLE 500 MG TAB PO SCH ×2 (05:40→15:00)
[2017-07-01 06:07] LABS: HEMATOCRIT 42.2 % (35.0-46.0); MEAN CELL VOLUME 88.9 FL (80.0-100.0); MEAN CORPUSCULAR HEMOGLOBIN 29.5 PG (27.0-34.0); MEAN CORPUSCULAR HGB CONC 33.2 % (32.0-36.0); PLATELET COUNT 190 TH/MM3 (150-450); RED BLOOD COUNT 4.74 MIL/MM3 (4.00-5.30); RED CELL DISTRIBUTION WIDTH 15.3 % (11.6-17.2); REVIEW FLAG FINAL; WHITE BLOOD COUNT 6.6 TH/MM3 (4.0-11.0)
[2017-07-01] MEDS: LEVOTHYROXINE SODIUM 112 MCG TAB PO SCH (06:12)
[2017-07-01 06:38] LABS: BICARBONATE 26.5 MEQ/L (21.0-32.0); POTASSIUM 3.6 MEQ/L (3.5-5.1)
[2017-07-01 08:00] VITALS: BP 142/87; PULSE 68; RESP 18; TEMP 97; O2SAT 100
[2017-07-01] MEDS: MUPIROCIN 2% OINT 1 APPLIC/GM SYR EACH NARE SCH (09:42)
[2017-07-01] MEDS: clonazePAM 0.5 MG TAB PO SCH ×2 (09:42→15:00)
[2017-07-01] MEDS: MONTELUKAST SODIUM 10 MG TAB PO SCH (09:43)
[2017-07-01] MEDS: PANTOPRAZOLE SODIUM 40 MG VIAL IV PUSH SCH (09:43)
[2017-07-01] MEDS: FOLIC ACID 1 MG TAB PO SCH (09:43)
[2017-07-01] MEDS: PRAVASTATIN SOD 20 MG TAB PO SCH (09:43)
[2017-07-01 12:00] VITALS: BP 122/84; PULSE 72; RESP 18; TEMP 97.5; O2SAT 98
--- NOTE | 2017-07-01 12:10 | HHI.PR ---
Subjective Subjective Remarks Resting in the bed Getting up in chair and out of bed Denies any diarrhea No abdominal pain tolerating solid food without nausea or vomiting Discussed in depth nutritional regimen for her GI symptoms, Review of Systems Constitutional Constitutional: Weakness (improved) Constitutional Remarks 10 point ROS reviewed Out of bed GI/Abdomen GI/Abdominal Exam: Diarrhea (improving with medical management) GI/Abdomen Remarks No diarrhea Psychiatric Psychiatric: Normal Mood Vitals/Results Intake & Output 07/01/17 07/01/17 07/02/17 15:00 23:00 07:00 Intake Total 120 ml Balance 120 ml Intake Oral 120 ml Vital Signs Vital Signs Date Time Temp Pulse Resp B/P (MAP) Pulse Ox O2 Delivery O2 Flow Rate FiO2 07/01/17 08:00 97.0 68 18 142/87 (105) 100 07/01/17 04:00 97.5 69 17 159/86 (110) 98 07/01/17 00:00 96.9 64 18 161/87 (111) 96 06/30/17 22:25 Nasal Cannula 2.00 06/30/17 20:00 98.3 80 17 146/83 (104) 97 06/30/17 16:00 71 06/30/17 16:00 98.1 75 21 142/90 (107) 94 06/30/17 14:00 91 CBC/BMP: 07/01/17 0540 07/01/17 0540 Lab Results Laboratory Tests Test 07/01/17 05:40 White Blood Count 6.6 TH/MM3 Red Blood Count 4.74 MIL/MM3 Hemoglobin 14.0 GM/DL Hematocrit 42.2 % Mean Corpuscular Volume 88.9 FL Mean Corpuscular Hemoglobin 29.5 PG Mean Corpuscular Hemoglobin Concent 33.2 % Red Cell Distribution Width 15.3 % Platelet Count 190 TH/MM3 Mean Platelet Volume 7.0 FL Blood Urea Nitrogen 6 MG/DL Creatinine 0.83 MG/DL Random Glucose 92 MG/DL Calcium Level 8.4 MG/DL Sodium Level 143 MEQ/L Potassium Level 3.6 MEQ/L Chloride Level 111 MEQ/L Carbon Dioxide Level 26.5 MEQ/L Anion Gap 6 MEQ/L Estimat Glomerular Filtration Rate 70 ML/MIN Current Medications Last Impressions Abdomen/Pelvis CT 06/28/17 0000 Signed Impressions: Service Date/Time: Wednesday, June 28, 2017 16:24 - CONCLUSION: 1. Long segment, mostly left-sided colitis, probably infectious. No abscess, perforation or obstruction. 2. Small, nonspecific perihepatic ascites. 3. Patchy infiltrate of both lung bases. Ghulam Chavez MD Maxillofacial CT 06/27/17 1536 Signed Impressions: Service Date/Time: Tuesday, June 27, 2017 15:36 - CONCLUSION: Minimal soft tissue swelling, negative for fracture. Delvin Louis MD FACR Head CT 06/27/17 0000 Signed Impressions: Service Date/Time: Tuesday, June 27, 2017 15:36 - CONCLUSION: Intracranial contents unremarkable. Delvin Louis MD FACR Physical Exam General General Appearance: Well Developed, No Acute Distress Eyes Eye Exam: Pupils Reactive Ears & Nose Ears & Nose Exam: Nasal Mucosa [place] Throat Throat Exam: Oral Mucosa [place] & Moist Neck Neck Exam: Neck Supple Pulmonary Resp Exam: Clear Bilaterally Cardiology CV Exam: Regular Gastrointestinal/Abdomen GI Exam: Soft, Non-Tender, Bowel Sounds Present GI Remarks Denies any nausea or acute pain No diarrhea, able to tolerate solid food without any nausea vomiting or abdominal pain Musculoskeletal MS Exam: Joints Intact Integumentary Skin Exam: Warm, Dry, Intact Extremeties Extremities Exam: No Edema Neurologic Neuro Exam: Awake, Oriented, Speech Clear, Moving All Extremities Assessment/Plan Problem List: (1) MS (multiple sclerosis) ICD Codes: G35 - Multiple sclerosis Status: Chronic (2) Allergic rhinitis ICD Codes: J30.9 - Allergic rhinitis, unspecified (3) GI bleed ICD Codes: K92.2 - Gastrointestinal hemorrhage, unspecified Status: Acute (4) Gastroparesis ICD Codes: K31.84 - Gastroparesis Status: Chronic (5) Elevated partial thromboplastin time (PTT) ICD Codes: R79.1 - Abnormal coagulation profile (6) CKD (chronic kidney disease) stage 3, GFR 30-59 ml/min ICD Codes: N18.3 - Chronic kidney disease, stage 3 (moderate) Status: Acute (7) Leucocytosis ICD Codes: D72.829 - Elevated white blood cell count, unspecified Status: Acute (8) Depression ICD Codes: F32.9 - Major depressive disorder, single episode, unspecified Status: Chronic (9) Hyperlipidemia ICD Codes: E78.5 - Hyperlipidemia, unspecified Status: Chronic (10) Hypertension ICD Codes: I10 - Essential (primary) hypertension Status: Chronic (11) Hypothyroidism ICD Codes: E03.9 - Hypothyroidism, unspecified Status: Acute (12) GERD (gastroesophageal reflux disease) ICD Codes: K21.9 - Gastro-esophageal reflux disease without esophagitis Status: Acute (13) Ankylosing spondylitis ICD Codes: M45.9 - Ankylosing spondylitis of unspecified sites in spine Assessment/Plan Vital signs reviewed, afebrile BP trends normal Reviewed bowel regimen no diarrhea, GI bleed, symptomatic with syncopal episodes and hypotension, resolved Colitis probable infectious, sigmoid colon, improvement with meds, no diarrhea S/P EGD on 06/27/2017 showing LA Class esophagitis. 2. Erythematous gastritis in gastric antrum, biopsied. 3. Normal duodenal mucosa in the bulb and second portion of the duodenum. 4. Retroflexed views revealed no abnormalities. S/P Colonoscopy on 06/28/27 --1. 20 x 25cm circumferential colitis was found in the sigmoid colon; The mucosa was congested, erythematous, friable and had granularity; Consistent with ischemic 2. Retroflexed views revealed internal hemorrhoids 3. Retroflexed views revealed medium internal hemorrhoids 4. Revealed external hemorrhoids. C. difficile negative GI will follow as outpatient, continue current medical management, diarrhea improving, rectal Carter DC'd, biopsies pending Acute kidney injury, resolved with by mouth and IV hydration, IV fluids DC'd, encouraged by mouth fluids Hypokalemia, resolved and stable Recurrent UTIs, self catheterizes -Continue with Macrobid History of MS, stable, continue medical management, encourage patient to be out of bed up in chair today and ambulate in room History of Migraine Currently denies any acute pain Depression, hyperlipidemia medical management Discharge planning possible home today, patient is anxious to go home SCDs for DVT prophylaxis Protonix for GI prophylaxis Discussed with patient Discussed with nurse Discussed with Dr. Hinojosa, seen his behalf Problem Qualifiers (1) Allergic rhinitis: Qualified Codes: J30.9 - Allergic rhinitis, unspecified (2) GI bleed: Qualified Codes: K92.2 - Gastrointestinal hemorrhage, unspecified (3) Leucocytosis: Qualified Codes: D72.829 - Elevated white blood cell count, unspecified (4) Depression: Qualified Codes: F32.9 - Major depressive disorder, single episode, unspecified (5) Hyperlipidemia: Qualified Codes: E78.5 - Hyperlipidemia, unspecified (6) Hypertension: Qualified Codes: I10 - Essential (primary) hypertension (7) Hypothyroidism: Qualified Codes: E03.9 - Hypothyroidism, unspecified (8) GERD (gastroesophageal reflux disease): Qualified Codes: K21.0 - Gastro-esophageal reflux disease with esophagitis (9) Ankylosing spondylitis: Qualified Codes: M45.9 - Ankylosing spondylitis of unspecified sites in spine Julia Diaz Jul 01, 2017 12:10
--- NOTE | 2017-07-01 14:55 | HHI.FF ---
Face to Face Verification Diagnosis: (1) Multiple sclerosis (2) Right hip pain (3) Weakness Physical Therapy Order: Evaluate and Treat I have seen patient Sharon Dixon on 07/01/17. My clinical findings support the need for the requested home health care services because: Ltd mobility - disease progression I certify that my clinical findings support that this patient is homebound because: Unsteady gait/balance Ron Hinojosa MD Jul 01, 2017 14:55
[2017-07-01] MEDS: VENLAFAXINE HCL 75 MG TAB PO SCH (14:59)
--- NOTE | 2017-07-01 15:57 | HHI.DS ---
Discharge Summary Admission Date Jun 27, 2017 at 14:35 Discharge Date: Jul 01, 2017 Admitting Diagnosis GI BLEED (1) GI bleed ICD Codes: K92.2 - Gastrointestinal hemorrhage, unspecified Status: Acute (2) Migraine ICD Codes: G43.909 - Migraine, unspecified, not intractable, without status migrainosus Status: Acute (3) Gastroparesis ICD Codes: K31.84 - Gastroparesis Status: Chronic (4) CKD (chronic kidney disease) stage 3, GFR 30-59 ml/min ICD Codes: N18.3 - Chronic kidney disease, stage 3 (moderate) Status: Acute (5) GERD (gastroesophageal reflux disease) ICD Codes: K21.9 - Gastro-esophageal reflux disease without esophagitis Status: Acute (6) Ankylosing spondylitis ICD Codes: M45.9 - Ankylosing spondylitis of unspecified sites in spine (7) Hypertension ICD Codes: I10 - Essential (primary) hypertension Status: Chronic (8) Hyperlipidemia ICD Codes: E78.5 - Hyperlipidemia, unspecified Status: Chronic (9) Depression ICD Codes: F32.9 - Major depressive disorder, single episode, unspecified Status: Chronic (10) MS (multiple sclerosis) ICD Codes: G35 - Multiple sclerosis Status: Chronic Brief History 62-year-old female with known history of hypertension, hyperlipidemia , gastroesophageal reflux, history of breast cancer, hypothyroidism, multiple sclerosis, restless leg syndrome, history of trigeminal neuralgia. Patient presented to the emergency room on 06/27/2017 with complaint of bright red blood per rectum, has history of gastroparesis, colonic polyps and GERD.Patient indicated she had 2 episodes of syncope when standing and after using toilet. She had hit her head and had left periorbital bruising. Had previous polypectomy. Had an endoscopy 2 years ago that revealed gastric reflux disease. No alcohol use. No NSAID use. Patient not on any anticoagulation. CBC/BMP: 07/01/17 0540 07/01/17 0540 Significant Findings Laboratory Tests Test 06/28/17 16:00 06/28/17 18:00 06/29/17 04:27 06/29/17 12:00 Mean Platelet Volume 6.9 FL (7.0-11.0) Monocytes (%) (Auto) 11.9 % (0.0-8.0) Blood Urea Nitrogen 6 MG/DL (7-18) Calcium Level 7.8 MG/DL (8.5-10.1) Potassium Level 3.1 MEQ/L (3.5-5.1) Chloride Level 112 MEQ/L (98-107) Estimat Glomerular Filtration Rate 68 ML/MIN (>89) Test 06/29/17 17:15 06/30/17 04:00 07/01/17 05:40 Blood Urea Nitrogen 5 MG/DL (7-18) 6 MG/DL (7-18) Calcium Level 7.7 MG/DL (8.5-10.1) 8.4 MG/DL (8.5-10.1) Chloride Level 111 MEQ/L (98-107) 111 MEQ/L (98-107) Estimat Glomerular Filtration Rate 79 ML/MIN (>89) 70 ML/MIN (>89) Imaging Last Impressions Abdomen/Pelvis CT 06/28/17 0000 Signed Impressions: Service Date/Time: Wednesday, June 28, 2017 16:24 - CONCLUSION: 1. Long segment, mostly left-sided colitis, probably infectious. No abscess, perforation or obstruction. 2. Small, nonspecific perihepatic ascites. 3. Patchy infiltrate of both lung bases. Ghulam Chavez MD Maxillofacial CT 06/27/17 1536 Signed Impressions: Service Date/Time: Tuesday, June 27, 2017 15:36 - CONCLUSION: Minimal soft tissue swelling, negative for fracture. Delvin Louis MD FACR Head CT 06/27/17 0000 Signed Impressions: Service Date/Time: Tuesday, June 27, 2017 15:36 - CONCLUSION: Intracranial contents unremarkable. Delvin Louis MD FACR PE at Discharge General General Appearance: Well Developed, No Acute Distress Eyes Eye Exam: Pupils Reactive Ears & Nose Ears & Nose Exam: Nasal Mucosa [place] Throat Throat Exam: Oral Mucosa [place] & Moist Neck Neck Exam: Neck Supple Pulmonary Resp Exam: Clear Bilaterally Cardiology CV Exam: Regular Gastrointestinal/Abdomen GI Exam: Soft, Non-Tender, Bowel Sounds Present GI Remarks Denies any nausea or acute pain No diarrhea, able to tolerate solid food without any nausea vomiting or abdominal pain Musculoskeletal MS Exam: Joints Intact Integumentary Skin Exam: Warm, Dry, Intact Extremeties Extremities Exam: No Edema Neurologic Neuro Exam: Awake, Oriented, Speech Clear, Moving All Extremities Hospital Course The emergency room, patient was noted hypotensive, blood pressure dropped to 70s. She was initially admitted to intensive care services. Gastroenterology was consulted. She was positive for bright red blood per rectum associated with some dark blood. H&H was stable. She had EGD on 06/27/2017 showing LA Class esophagitis. 2. Erythematous gastritis in gastric antrum, biopsied. 3. Normal duodenal mucosa in the bulb and second portion of the duodenum. 4. Retroflexed views revealed no abnormalities. Colonoscopy on 06/28/27 --1. 20 x 25cm circumferential colitis was found in the sigmoid colon; The mucosa was congested, erythematous, friable and had granularity; Consistent with ischemic 2. Retroflexed views revealed internal hemorrhoids 3. Retroflexed views revealed medium internal hemorrhoids 4. Revealed external hemorrhoids. CT Abdomen/Pelvis 06/28/17--1. Long segment, mostly left-sided colitis, probably infectious. No abscess, perforation or obstruction. 2. Small, nonspecific perihepatic ascites. 3. Patchy infiltrate of both lung bases. Patient received 2 units of packed cells , H&H is 14.7/43.5. She has not had any more rectal bleeding. Patient hemodynamically stable. She was also noted an acute kidney injury, creatinine 1.8, renal function has improved after IV fluids. Potassium is 3.1, she's on potassium replacement protocol. At this time, patient was complaining of a severe migraine, indicated the Imitrex doesn't work. She was very nauseous and light is bothering her. Hospitalist services are requested to assume medical management. These diagnosis were used to treat this patient during this hospital stay. Patient was in the intensive care setting initially , transitioned to private room on 06-30. Vital signs reviewed, afebrile BP trends normal last 24 hrs. Otherwise vital signs were documented every 4hrs and prn throughout hospital stay. Consults include intensivists, GI, and hosptialists. Reviewed bowel regimen no diarrhea, day of dc, trended down daily with medical management of antibiotics and flagyl. Patient initially recieved, Potassium and Magnesium to stablized electrolytes. GI bleed, symptomatic with syncopal episodes and hypotension, resolved Colitis probable infectious, sigmoid colon, improvement with meds, no diarrhea S/P EGD on 06/27/2017 showing LA Class esophagitis. 2. Erythematous gastritis in gastric antrum, biopsied. 3. Normal duodenal mucosa in the bulb and second portion of the duodenum. 4. Retroflexed views revealed no abnormalities. S/P Colonoscopy on 06/28/27 --1. 20 x 25cm circumferential colitis was found in the sigmoid colon; The mucosa was congested, erythematous, friable and had granularity; Consistent with ischemic 2. Retroflexed views revealed internal hemorrhoids 3. Retroflexed views revealed medium internal hemorrhoids 4. Revealed external hemorrhoids. C. difficile negative GI will follow as outpatient, continue current medical management, diarrhea improving, rectal Carter DC'd, biopsies pending Acute kidney injury, resolved with by mouth and IV hydration, IV fluids DC'd, encouraged by mouth fluids Hypokalemia, resolved and stable Recurrent UTIs, self catheterizes -Continue with Macrobid History of MS, stable, continue medical management, encourage patient to be out of bed up in chair today and ambulate in room History of Migraine Currently denies any acute pain Depression, hyperlipidemia medical management Discharge planning possible home today, patient is anxious to go home. Patient was able to ambulate, eat regular food, pain and symptoms controlled. Seen per Dr. Hinojosa. SCDs for DVT prophylaxis Protonix for GI prophylaxis Pt Condition on Discharge: Stable Discharge Disposition: Discharge Home Discharge Instructions DIET: Follow Instructions for: Heart Healthy Diet Additional Diet Instructions: Low residue and BRAT diet heart healthy Activities you can perform: Regular-No Restrictions Follow up Referrals: Gastroenterology - 2 Weeks with Skip Garcia MD Continued Medications: Calcium Carbonate-Cholecalciferol (Calcium 1000 + D) 1,000-800 Mg-Unit Tab 2000 TAB PO DAILY for Calcium Supplement, TAB Carbamazepine (Carbamazepine) 100 Mg Chew 100 MG CHEW BID, #60 TAB 0 Refills Carvedilol (Carvedilol) 12.5 Mg Tab 6.25 MG PO BID for Blood Pressure Management, TAB 0 Refills Cholecalciferol (Vitamin D3 Ultra Strength) 5,000 Unit Cap 72499 UNITS PO 2X MONTH for Nutritional Supplement, #1 BOTTLE 0 Refills Clonazepam (Klonopin) 0.5 Mg Tab 1.5 MG PO QID for PANIC/ANXIETY, TAB 0 Refills Epinephrine Inj (Epipen 2-Corey Inj) 0.3 Mg/0.3 Ml Pfpen 0.3 MG IM ONCE PRN for ALLERGIC REACTION, #1 PACK 1 Refill Folic Acid (Folic Acid) 0.4 Mg Tab 1 MG PO DAILY for Nutritional Supplement, TAB 0 Refills Levothyroxine (Synthroid) 112 Mcg Tab 112 MCG PO DAILY for Thyroid, TAB 0 Refills Losartan (Losartan) 100 Mg Tab 50 MG PO DAILY for Blood Pressure Management, TAB 0 Refills Methotrexate (Methotrexate) 2.5 Mg Tab 2.5 MG PO Q7D for , TAB 0 Refills Montelukast (Singulair) 10 Mg Tab 10 MG PO DAILY for Allergies, TAB 0 Refills Nitrofurantoin Macrocrystal (Macrodantin) 100 Mg Cap 100 MG PO 3X WEEK, CAP 0 Refills Pantoprazole (Protonix) 20 Mg Tab 20 MG PO BID for Reflux, TAB 0 Refills Potassium Chloride (Potassium Chloride) 1 Pow Pow 10 MEQ PO DAILY for Electrolyte Replacement Pravastatin (Pravachol) 20 Mg Tab 20 MG PO DAILY for Cholesterol Management, TAB 0 Refills Ranitidine (Zantac) 300 Mg Tab 300 MG PO DAILY for Reflux, TAB 0 Refills Ropinirole (Requip) 3 Mg Tab 3 MG PO HS for RESTLESS LEG, TAB 0 Refills Venlafaxine (Effexor) 75 Mg Tab 150 MG PO DAILY for Anxiety, TAB 0 Refills Zoledronic Acid Inj (Reclast Inj) 5 Mg/100 Ml Inj 5 MG IV ONCE for Build Immunity, BAG 0 Refills Zoledronic Acid Inj (Reclast Inj) 5 Mg/100 Ml Inj 5 MG IV Q365D, #1 BAG 0 Refills [Ocrevus] () 300 MG IV [id number] Julia Diaz Jul 01, 2017 15:57
[2017-07-01 16:00] VITALS: BP 121/80; PULSE 95; RESP 18; TEMP 97.7; O2SAT 94
== END 2017-07-01 17:24 | disposition home or self-care (01) | DRG 386 ==
LOC: PHED 11:38 → PHEDA 14:35 → HIMN 17:26 → HOCA 06-30 17:18
PROVIDERS: ADMIT Internal Medicine Critical Care Medicine; ATTEND Internal Medicine Critical Care Medicine
PROC: 0DB68ZX Excision of Stomach, Via Natural or Artificial Opening Endoscopic, Diagnostic (ICD-10-PCS; 2017-06-27)
PROC: 30233N1 Transfusion of Nonautologous Red Blood Cells into Peripheral Vein, Percutaneous Approach (ICD-10-PCS; principal; 2017-06-27 17:11)
PROC: 0DJD8ZZ Inspection of Lower Intestinal Tract, Via Natural or Artificial Opening Endoscopic (ICD-10-PCS; 2017-06-28)
DX: K51.511 Left sided colitis with rectal bleeding (principal); K55.9 Vascular disorder of intestine, unspecified; N17.9 Acute kidney failure, unspecified; D62 Acute posthemorrhagic anemia; G35 Multiple sclerosis; N18.3 Chronic kidney disease, stage 3 (moderate); K31.84 Gastroparesis; F32.9 Major depressive disorder, single episode, unspecified; F41.9 Anxiety disorder, unspecified; G43.909 Migraine, unspecified, not intractable, without status migrainosus; I12.9 Hypertensive chronic kidney disease with stage 1 through stage 4 chronic kidney disease, or unspecified chronic kidney disease; E78.5 Hyperlipidemia, unspecified; E03.9 Hypothyroidism, unspecified; G25.81 Restless legs syndrome; G47.33 Obstructive sleep apnea (adult) (pediatric); K21.0 Gastro-esophageal reflux disease with esophagitis; K29.70 Gastritis, unspecified, without bleeding; M81.0 Age-related osteoporosis without current pathological fracture; K64.8 Other hemorrhoids; E87.6 Hypokalemia
CPT/HCPCS: 36430; 70450; 70486; 74176; 80048; 80053; 82948; 83735; 84100; 84132; 85014; 85018; 85025; 85027; 85610; 85730; 86850; 86900; 86901; 86920; 87493; 87641; 88305; 93005; 94150; 94640; 94667; 94668; 96360; C9113; J0780; J1170; J2405; J3480; J7030; J7050; J8610; P9016; Q9963

== ENCOUNTER 2017-08-06 10:38 | Day surgery (SDC) | payer MEDICARE, BC ==
[~2017-08-06 10:38] MED LIST changes: -AZEL1SPR2 EACH NARE; +CARB100C CHEW; -CYCL1TAB29 PO; -FLUT1SPR5 EACH NARE; +FOLI400T PO; -LIDOCAINE HCL 1% PF 5 ML AMPULE OTHER ONE; -MEDR4PAK PO; +METH2.5T PO; +OCREVUS IV; -ONDANSETRON HCL 4 MG/2 ML VIAL IV PUSH ONE; -PERC5TAB12 PO; -PROPOFOL 200 MG/20 ML AMP IV ONE; -QUET50XR PO; -ROCURONIUM INJ 50 MG/5 ML SYRINGE IV PUSH ONE
[2017-08-06] MEDS ORDERED: MUPIROCIN 2% OINT 1 APPLIC/GM SYR NASAL SCH (11:30)
[2017-08-06] MEDS ORDERED: ceFAZolin 2 GM PREMIX 50 ML IV SCH (11:30)
[2017-08-06] MEDS ORDERED: CHLORHEXIDINE GLUCONATE 2 % 1 PACK (2 CLOTHS) TOPICAL SCH (11:30)
[2017-08-06] MEDS ORDERED: NS 1000 ML IV SCH (11:30)
[2017-08-06] MEDS ORDERED: VANCOMYCIN 1000 MG/NS 250 ML IV SCH ×2 (11:30)
[2017-08-06] MEDS ORDERED: [UNRECOGNIZED DRUG - CODE] IV (12:04)
[2017-08-06] MEDS ORDERED: ZOFR4TAB PO (12:04)
[2017-08-06] MEDS ORDERED: BOTU100P I-DERMAL (12:04)
[2017-08-06] MEDS ORDERED: AZEL1SPR2 EACH NARE (12:04)
[2017-08-06] MEDS ORDERED: FLUT1SPR5 EACH NARE (12:04)
[2017-08-06] MEDS ORDERED: ASPI1TAB93 PO (12:04)
[2017-08-06] MEDS ORDERED: LURA20TA PO (12:04)
[2017-08-06] MEDS ORDERED: MIDAZOLAM HCL 5 MG/5 ML VIAL ONE (13:25)
--- NOTE | 2017-08-06 15:42 | MP ---
cc: GRACIE TAYLOR DATE OF SURGERY: 08/06/2017 INDICATION Syncope. PROCEDURE PERFORMED Placement of Medtronic Reveal LINQ MRI compatible loop monitor. ACCESS SITE Left anterior chest. EQUIPMENT USED Medtronic Reveal LINQ model LNQ11 MRI compatible loop monitor. Serial number [id number]. MEDICATIONS Versed IV, Fentanyl IV. PROCEDURE After the patient was sedated and the chest was prepped and draped in the usual sterile manner. Local anesthesia was applied. Medtronic Reveal LINQ MRI compatible loop monitor was placed without difficulties. R-wave of 0.35 mV. DIAGNOSIS Successful placement of Medtronic Reveal LINQ MRI compatible loop monitor. DISPOSITION Ms. Dixon will be discharged home later today. We will initiate remote monitoring of her device. She was advised not to drive until reason for her syncope is diagnosed and managed. I will see her back in our office within 2 weeks. Gracie Taylor MD OF[facility]/TLL /1:52 PM /3:20 PM
--- NOTE | 2017-08-06 15:42 | MP ---
cc: GRACIE TAYLOR DATE OF SURGERY: 08/06/2017 INDICATION Syncope. PROCEDURE PERFORMED Placement of Medtronic Reveal LINQ MRI compatible loop monitor. ACCESS SITE Left anterior chest. EQUIPMENT USED Medtronic Reveal LINQ model LNQ11 MRI compatible loop monitor. Serial number [id number]. MEDICATIONS Versed IV, Fentanyl IV. PROCEDURE After the patient was sedated and the chest was prepped and draped in the usual sterile manner. Local anesthesia was applied. Medtronic Reveal LINQ MRI compatible loop monitor was placed without difficulties. R-wave of 0.35 mV. DIAGNOSIS Successful placement of Medtronic Reveal LINQ MRI compatible loop monitor. DISPOSITION Ms. Dixon will be discharged home later today. We will initiate remote monitoring of her device. She was advised not to drive until reason for her syncope is diagnosed and managed. I will see her back in our office within 2 weeks. Gracie Taylor MD [facility]/TLL /1:52 PM /3:20 PM
--- NOTE | 2017-08-06 15:42 | MP ---
cc: GRACIE TAYLOR DATE OF SURGERY: 08/06/2017 INDICATION Syncope. PROCEDURE PERFORMED Placement of Medtronic Reveal LINQ MRI compatible loop monitor. ACCESS SITE Left anterior chest. EQUIPMENT USED Medtronic Reveal LINQ model LNQ11 MRI compatible loop monitor. Serial number [id number]. MEDICATIONS Versed IV, Fentanyl IV. PROCEDURE After the patient was sedated and the chest was prepped and draped in the usual sterile manner. Local anesthesia was applied. Medtronic Reveal LINQ MRI compatible loop monitor was placed without difficulties. R-wave of 0.35 mV. DIAGNOSIS Successful placement of Medtronic Reveal LINQ MRI compatible loop monitor. DISPOSITION Ms. Dixon will be discharged home later today. We will initiate remote monitoring of her device. She was advised not to drive until reason for her syncope is diagnosed and managed. I will see her back in our office within 2 weeks. Gracie Taylor MD [facility]/TLL /1:52 PM /3:20 PM
== END 2017-08-06 15:36 | disposition home or self-care (01) ==
LOC: HDIC 10:38 → HCAT 10:38
PROVIDERS: ATTEND Internal Medicine Interventional Cardiology
DX: R55 Syncope and collapse (principal); R00.0 Tachycardia, unspecified; R07.9 Chest pain, unspecified; I10 Essential (primary) hypertension; E78.5 Hyperlipidemia, unspecified; E03.9 Hypothyroidism, unspecified; G35 Multiple sclerosis
CPT/HCPCS: 33282; 99152; C1764; J0690; J2250; J3010

== ENCOUNTER 2017-08-12 14:12 | Emergency (ER) | payer MEDICARE, BC ==
[~2017-08-12] VITALS: Ht 162.6 cm; Wt 70.0 kg
[~2017-08-12 14:12] MED LIST changes: +ASPI1TAB93 PO; +AZEL1SPR2 EACH NARE; +BOTU100P I-DERMAL; -CARB100C CHEW; -CARV12.52 PO; -CHOL1CAP61 PO; +D-3-50003 PO; +FLUT1SPR5 EACH NARE; -LOSA100T PO; +LURA20TA PO; +ZOFR4TAB PO; +[UNRECOGNIZED DRUG - CODE] IV
[2017-08-12 14:17] VITALS: BP 131/88; PULSE 101; RESP 16; TEMP 98.5; O2SAT 94
--- NOTE | 2017-08-12 14:49 | PD ---
HPI Chief Complaint: Skin Problem Time Seen by Provider: 14:35 Travel History International Travel<30 days: No Contact w/Intl Traveler<30days: No Traveled to known affect area: No History of Present Illness HPI 62-year-old female presents to the emergency department complaining of a rash since Friday after a latex bandage was applied to an incision site. 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 The rash developed 1 days later. States that the pain is moderate in area and has spread from the left mid sternal area to the right breast. She is also developing a round red plaque under the left breast which ' feels like leather'. She was placed on keflex and hydrocortisone cream yesterday by her surgeon and has not improved. States previously she was given an IV drip of abx and benedryl and this improved her discomfort. States she had blisters yesterday but resolved throughout the day. She has not followed up with her PCP. She denies fever, chills. PFSH Past Medical History Hx Anticoagulant Therapy: No Autoimmune Disease: Yes (MS, ANKYLOSING SPONDELITIS) Blood Disorders: No Anxiety: Yes Depression: Yes Heart Rhythm Problems: Yes Cancer: Yes Cardiovascular Problems: Yes (HTN) High Cholesterol: Yes Chemotherapy: Yes (in the past for breast ca) Congestive Heart Failure: No Diabetes: No Diminished Hearing: No Endocrine: Yes Gastrointestinal Disorders: Yes (GASTROPARESIS, ACID REFLUX, HX OF ESOPHAGEAL STRICTURE/DILATION) GERD: Yes Genitourinary: No Hepatitis: No Hiatal Hernia: Yes Hypertension: Yes Immune Disorder: Yes (MULTIPLE SCLEROSIS) Implanted Vascular Access Dvce: Yes (R. SIDE POWER PORT) Musculoskeletal: Yes Neurologic: Yes Psychiatric: Yes Reproductive: No Respiratory: No Immunizations Current: Yes Migraines: Yes Radiation Therapy: Yes Renal Failure: Yes (STAGE 3 CKD) Thyroid Disease: Yes ?: Not Menopausal: Yes Past Surgical History Abdominal Surgery: Yes (APPENDECTOMY) AICD: No Appendectomy: Yes Cardiac Surgery: No Ear Surgery: No Endocrine Surgery: No Eye Surgery: Yes (LASIK 1999) Genitourinary Surgery: No Gynecologic Surgery: No Joint Replacement: No Neurologic Surgery: Yes (CARPAL TUNNEL L WRIST) Oral Surgery: Yes (TONSILLECTOMY) Pacemaker: No Thoracic Surgery: Yes (BILATERAL LUMPECTOMY WITH RADIATION L SIDE, left masectomy) Tonsillectomy: Yes Other Surgery: Yes (left mastectomy appendectomy, tonsilctomy, left carpal tunnel.) Social History Alcohol Use: No Tobacco Use: No Substance Use: No Allergies-Medications (Allergen,Severity, Reaction): Coded Allergies: kiwi (Unverified Allergy, Severe, THROAT SWELLS, 08/12/17) adhesive (Unverified Allergy, Intermediate, BLISTERS, REDNESS AT PORT SITE , ITCHING, 08/12/17) latex (Unverified Allergy, Intermediate, BLISTERS, 08/12/17) povidone-iodine (Unverified Allergy, Intermediate, BLISTERS, REDNESS AT PORT SITE, 08/12/17) Reported Meds & Prescriptions Reported Meds & Active Scripts Active Medrol Dosepak (Methylprednisolone) 4 Mg Dspk 4 Mg PO DIRECTED Per Pharmacist direction Mupirocin Topical (Mupirocin) 2 % Oint 1 Applic TOPICAL BID 7 Days Nystop Topical (Nystatin Topical) 100,000 Unit/Gm Powd 1 Applic TOPICAL Q12HR 10 Days Epipen 2-Croey Inj (Epinephrine) 0.3 Mg/0.3 Ml Pfpen 0.3 Mg IM ONCE PRN Reported Synthroid (Levothyroxine Sodium) 112 Mcg Tab 112 Mcg PO DAILY Reclast Inj (Zoledronic Acid) 5 Mg/100 Ml Inj 5 Mg IV Q365D Macrodantin (Nitrofurantoin Macrocrystal) 100 Mg Cap 100 Mg PO DIRECTED Dicyclomine (Dicyclomine HCl) 20 Mg Tab 20 Mg PO BID Botox Inj (Onabotulinumtoxina) 100 Unit Inj 5 Units I-DERMAL ONCE Excedrin Extra Strength (Yzctfqh-Nekzexcdysqqb-Hghnvpsf) 250 Mg-250 Mg-65 Mg Tab 1 Tab PO DAILY Flonase Nasal [place] (Fluticasone Nasal [place]) 50 Mcg/Act [place] 50 Mcg EACH NARE BID Azelastine Nasal [place] (Azelastine HCl) 0.1% [place] 1 [place] EACH NARE BID Feraheme (Ferumoxytol) 510 Mg/17 Ml (30 Mg/Ml) Inj 17 Ml IV WEEKLY Latuda (Lurasidone) 20 Mg Tab 40 Mg PO DAILY Methotrexate 2.5 Mg Tab 2.5 Mg PO Q7D Folic Acid 0.4 Mg Tab 1 Mg PO DAILY [Ocrevus] 300 Mg IV [id number] Vitamin D3 Ultra Strength (Cholecalciferol) 5,000 Unit Cap 50,000 Units PO 2X MONTH Macrodantin (Nitrofurantoin Macrocrystal) 100 Mg Cap 100 Mg PO 3X WEEK Zantac (Ranitidine HCl) 300 Mg Tab 300 Mg PO DAILY Singulair (Montelukast Sodium) 10 Mg Tab 10 Mg PO DAILY Requip (Ropinirole) 3 Mg Tab 3 Mg PO HS Protonix (Pantoprazole Sodium) 20 Mg Tab 20 Mg PO BID Pravachol (Pravastatin) 20 Mg Tab 20 Mg PO DAILY Klonopin (Clonazepam) 0.5 Mg Tab 0.5 Mg PO QID PRN Potassium Chloride 1 Pow Pow 20 Meq PO DAILY Effexor (Venlafaxine HCl) 75 Mg Tab 150 Mg PO DAILY Calcium 1000 + D (Calcium Carbonate-Cholecalciferol) 1,000-800 Mg-Unit Tab 2, 000 Tab PO DAILY Review of Systems Except as stated in HPI: all other systems reviewed are Neg Physical Exam Narrative GENERAL: Well-nourished, well-developed patient. SKIN: Focused skin assessment warm/dry. Left midsternal chest with Steri- Strips in place surrounding erythema without fluctuance. Multiple 1-2mm papules with surrounding erythema and lesions scattered to left upper chest to right mid sternal area. Round area of plaque approximately 3-4 cm with the erythema and macerated appearing medial aspect of left breast with satellite lesions. No lymphangitic spread. HEAD: Normocephalic. EYES: No scleral icterus. No injection or drainage. NECK: Supple, trachea midline. No JVD or lymphadenopathy. CARDIOVASCULAR: Regular rate and rhythm without murmurs, gallops, or rubs. RESPIRATORY: Breath sounds equal bilaterally. No accessory muscle use. MUSCULOSKELETAL: No cyanosis, or edema. No axillary lymphadenopathy BACK: Nontender without obvious deformity. No CVA tenderness. Data Data Last Documented VS Vital Signs Date Time Temp Pulse Resp B/P (MAP) Pulse Ox O2 Delivery O2 Flow Rate FiO2 08/12/17 15:45 08/12/17 15:10 79 16 94 08/12/17 14:17 98.5 Orders Orders Methylprednisolone So Succ Inj (Solumedr (08/12/17 15:00) Silver Sulfadia 1% Crm (50 Gm) (Silvaden (08/12/17 15:00) Ed Discharge Order (08/12/17 15:39) [facility] Medical Decision Making Medical Screen Exam Complete: Yes Emergency Medical Condition: Yes Differential Diagnosis Contact dermatitis versus Gray-Shaheed's versus cellulitis versus erysipelas versus intertrigo Narrative Course 62-year-old female presents to the emergency department complaining of a rash since Friday after a latex bandage was applied to an incision site. 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 The rash developed 1 days later. States that the pain is moderate in area and has spread from the left mid sternal area to the right breast. She is also developing a round red plaque under the left breast which ' feels like leather'. She was placed on keflex and hydrocortisone cream yesterday by her surgeon and has not improved. States previously she was given an IV drip of abx and benedryl and this improved her discomfort. States she had blisters yesterday but resolved throughout the day. She has not followed up with her PCP. She denies fever, chills. Physical exam demonstrates a nontoxic appearing, slightly anxious female with anterior chest rash consistent with a moderate allergic reaction with contact dermatitis to the area surrounding the bandage site. Vital signs stable. Oxygen saturation trends with last visit. Solumedrol administered and observed patient for approx 30 min. Noticable decreased papular size and elevation. She to continue Keflex. Hold Neosporin, start mupirocin. Continue hydrocortisone cream for unbroken skin. Nystatin powder twice daily. Medrol dose pack. Follow-up with surgeon and primary care physician within 2 days Diagnosis Primary Impression: Intertrigo Additional Impression: Contact dermatitis Qualified Codes: L23.1 - Allergic contact dermatitis due to adhesives Referrals: Primary Care Physician Additional Instructions: Use nystop twice daily for rash. Continue Keflex prescribed by surgeon. Hold neosporin. Use mupiricin twice daily. Continue hydrocortisone for unbroken skin. Take all medications as prescribed. Scripts Methylprednisolone Dosepak (Medrol Dosepak) 4 Mg Dspk 4 MG PO DIRECTED, #1 DSPK 0 Refills Per Pharmacist direction Prov: Daniel Garcia MD 08/12/17 Mupirocin Topical (Mupirocin Topical) 2 % Oint 1 APPLIC TOPICAL BID for Mgmt Bacterial Infection for 7 Days, #1 TUBE 0 Refills Prov: Daniel Garcia MD 08/12/17 Nystatin Topical (Nystop Topical) 100,000 Unit/Gm Powd 1 APPLIC TOPICAL Q12HR for Infection for 10 Days, #15 GM 0 Refills Prov: Daniel Garcia MD 08/12/17 Disposition: 01 DISCHARGE HOME Condition: Stable Unique Krishna Aug 12, 2017 14:49
[2017-08-12] MEDS ORDERED: MACR100C3 PO (14:55)
[2017-08-12] MEDS ORDERED: ZOLE5P IV (14:55)
[2017-08-12] MEDS ORDERED: SYNT112T PO (14:55)
[2017-08-12] MEDS ORDERED: DICY20TA10 PO (14:55)
[2017-08-12] MEDS ORDERED: BOTU100P I-DERMAL (14:55)
[2017-08-12] MEDS ORDERED: SILVER SULFADIAZINE 1% CR 50 GM JAR TOPICAL ONE (15:00)
[2017-08-12] MEDS ORDERED: methylPREDNISolone SOD SUCC 125 MG/2 ML VIAL IM ONE (15:00)
[2017-08-12 15:10] VITALS: BP 123/83; PULSE 79; RESP 16; O2SAT 94
[2017-08-12] MEDS ORDERED: MUPI2OIN TOPICAL (15:32)
[2017-08-12] MEDS ORDERED: NYST10007 TOPICAL (15:32)
[2017-08-12] MEDS ORDERED: MEDR4PAK PO (15:38)
== END 2017-08-12 15:55 | disposition home or self-care (01) ==
LOC: PHEFT 14:12
DX: L30.4 Erythema intertrigo (principal); L23.1 Allergic contact dermatitis due to adhesives; I12.9 Hypertensive chronic kidney disease with stage 1 through stage 4 chronic kidney disease, or unspecified chronic kidney disease; N18.3 Chronic kidney disease, stage 3 (moderate)
CPT/HCPCS: 96372; 99284; J2930

== ENCOUNTER → 2017-09-03 | Outpatient (CLI) | payer MEDICARE, BC ==
[~2017-09-03] VITALS: Ht 160 cm; Wt 69.7 kg
[~2017-09-03] MED LIST changes: +CHLORHEXIDINE GLUCONATE 2 % 1 PACK (2 CLOTHS) TOPICAL PRN; +D 50CAP2 PO; +DICY20TA10 PO; +LACTATED RINGER'S 1000 ML IV PRN; +LIDOCAINE HCL 1% PF 5 ML SYRINGE OTHER ONE; +MEDR4PAK PO; +METOPROLOL TARTRATE 25 MG TAB PO PRN; +MUPI2OIN TOPICAL; +NYST10007 TOPICAL; +PROPOFOL 200 MG/20 ML AMP IV ONE; +SODIUM CHLORID 0.9% 500 ML IV PRN; -ZOFR4TAB PO
--- NOTE | 2017-09-03 10:36 | GIPROC ---
[facility] [address] [facility]. [facility] [place], [address] COLONOSCOPY PROCEDURE REPORT EXAM DATE: 09/03/2017 PATIENT NAME: Sharon Dixon MR #: [id number] BIRTHDATE: 1955 ENDOSCOPIST: Skip Garcia MD ORDER #: [id number] WATCH LEADER: Jonah Whitley and Toya Motta STATUS: outpatient INDICATIONS: The patient is a 62 yr old female here for a colonoscopy due to abdominal pain in the left lower quadrant PROCEDURE PERFORMED: Colonoscopy, diagnostic MEDICATIONS: None and Per Anesthesia. PREP QUALITY: The [place] Bowel Prep Score was Right colon 2, Mid colon 3, and Left colon 2. Total = 7. PREP TYPE:GoLytely ESTIMATED BLOOD LOSS: None CONSENT: The patient understands the risks and benefits of the procedure and understands that these risks include, but are not limited to: sedation, allergic reaction, infection, perforation and/or bleeding. Alternative means of evaluation and treatment include, among others: physical exam, x-rays, and/or surgical intervention. The patient elects to proceed with this endoscopic procedure. medical equipment was checked for proper function. Hand hygiene and appropriate measures for infection prevention was taken. After the risks, benefits and alternatives of the procedure were thoroughly explained, Informed consent was verified, confirmed and timeout was successfully executed by the treatment team. A digital exam revealed external hemorrhoids The Pentax [id number] endoscope was introduced through the anus and advanced to the cecum, which was identified by both the appendix and ileocecal valve. The instrument was then slowly withdrawn as the colon was fully examined. COLON FINDINGS: The colonic mucosa appeared normal. Retroflexed views revealed internal hemorrhoids and Retroflexed views revealed medium internal hemorrhoids The scope was then completely withdrawn from the patient and the procedure terminated. PROCEDURE WITHDRAWAL TIME:6minutes ADVERSE EVENTS: There were no complications. IMPRESSIONS: 1. The colonic mucosa appeared normal 2. Retroflexed views revealed internal hemorrhoids 3. Retroflexed views revealed medium internal hemorrhoids 4. Revealed external hemorrhoids RECOMMENDATIONS: 1. Continue surveillance 2. Yearly hemoccult 3. Dicycolmine 10 mg pr tid ac RECALL: Return 5 years Colonoscopy Skip Garcia MD eSigned: Skip Garcia MD 09/03/2017 10:36 AM cc: Drea Potter M.D.
[2017-09-03 10:56] VITALS: PULSE 67; O2SAT 95
--- NOTE | 2017-09-03 11:04 | EKG ---
Date Performed: 09/03/2017 Time Performed: 09:12:10 PTAGE: 62 years EKG: Sinus rhythm NORMAL ECG PREVIOUS TRACING : 06/27/2017 13.09 DOCTOR: Gaudencio Delaney Interpretating Date/Time 09/03/2017 11:03:13
[2017-09-03 11:32] VITALS: BP 102/72
== END ==
LOC: HSDC 08:38
PROVIDERS: ATTEND Internal Medicine Gastroenterology
DX: R10.32 Left lower quadrant pain (principal); K64.4 Residual hemorrhoidal skin tags; K64.8 Other hemorrhoids; Z01.810 Encounter for preprocedural cardiovascular examination
CPT/HCPCS: 00810; 45378; 93005; J7120

== ENCOUNTER 2017-09-24 21:11 | Observation (INO) | payer MEDICARE, BC ==
[~2017-09-24] VITALS: Ht 165.1 cm; Wt 75.4 kg
[~2017-09-24 21:11] MED LIST changes: -CHLORHEXIDINE GLUCONATE 2 % 1 PACK (2 CLOTHS) TOPICAL PRN; -D-3-50003 PO; -LACTATED RINGER'S 1000 ML IV PRN; -LIDOCAINE HCL 1% PF 5 ML SYRINGE OTHER ONE; -MEDR4PAK PO; -METOPROLOL TARTRATE 25 MG TAB PO PRN; -NYST10007 TOPICAL; -PROPOFOL 200 MG/20 ML AMP IV ONE; -SODIUM CHLORID 0.9% 500 ML IV PRN
[2017-09-24 21:15] VITALS: BP 140/84; PULSE 69; RESP 16; TEMP 97.7; O2SAT 98
[2017-09-24 21:28] LABS: AUTOMATED NEUTROPHIL # 4.8 TH/MM3 (1.8-7.7); BASOPHIL # 0.1 TH/MM3 (0-0.2); BASOPHIL % 0.7 % (0.0-2.0); EOSINOPHIL # 0.1 TH/MM3 (0-0.4); EOSINOPHIL % 1.3 % (0.0-4.0); LYMPH % 20.2 % (9.0-44.0); LYMPHOCYTE # 1.5 TH/MM3 (1.0-4.8); MEAN CELL VOLUME 91.4 FL (80.0-100.0); MEAN CORPUSCULAR HEMOGLOBIN 31.3 PG (27.0-34.0); MEAN CORPUSCULAR HGB CONC 34.2 % (32.0-36.0); MONO % 10.6 % (0.0-8.0); NEUT % 67.2 % (16.0-70.0); PLATELET COUNT 237 TH/MM3 (150-450); RED BLOOD COUNT 4.26 MIL/MM3 (4.00-5.30); RED CELL DISTRIBUTION WIDTH 15.3 % (11.6-17.2); WHITE BLOOD COUNT 7.3 TH/MM3 (4.0-11.0)
[2017-09-24 21:29] VITALS: RESP 18; TEMP 97.7; O2SAT 99
[2017-09-24] MEDS ORDERED: NITROGLYCERIN 0.4 MG SL 25 TABS/BTL SL ONE (21:30)
[2017-09-24] MEDS ORDERED: LORazepam 0.5 MG TAB PO ONE (21:30)
--- NOTE | 2017-09-24 21:32 | PD ---
HPI Chief Complaint: Chest Pain Time Seen by Provider: 21:25 Travel History International Travel<30 days: No Contact w/Intl Traveler<30days: No Traveled to known affect area: No History of Present Illness HPI 62 year-old female presents to the emergency department from home by EMS transport for complaint of dizziness and chest pressure 8/10 intensity and episode of vomiting. Patient has history of dizzy spells chest pressure episodes and vomiting due to her history of multiple sclerosis gastroparesis and syncope. Patient is under the care of Dr. Rosie hector and her primary care provider. Patient states that she started a new medication for her restless leg syndrome today but does not believe that this is the precipitating factor as she has these symptoms prior to starting the new medication and since starting the medication. She currently rates her discomfort 8/10 in intensity after receiving 2 subungual sprays of nitroglycerin by EMS with no change in her symptoms. Patient's nausea has resolved after Zofran 4 mg IV. Patient states that she sits up she still feels dizzy. Patient has had GI bleed in the past. Patient denies any black or tarry stools. No near-syncope or syncope. PFSH Past Medical History Narrative Medical Anxiety depression Ankylosing spondylitis hypertension Hx Anticoagulant Therapy: No Autoimmune Disease: Yes (MS, ANKYLOSING SPONDELITIS) Blood Disorders: No Anxiety: Yes Depression: Yes Heart Rhythm Problems: Yes Cancer: Yes Cardiovascular Problems: Yes (Loop recorder) High Cholesterol: Yes Chemotherapy: Yes (in the past for breast ca) Congestive Heart Failure: No Diabetes: No Diminished Hearing: No Endocrine: Yes Gastrointestinal Disorders: Yes (GASTROPARESIS, ACID REFLUX, HX OF ESOPHAGEAL STRICTURE/DILATION) GERD: Yes Genitourinary: No Hepatitis: No Hiatal Hernia: Yes Hypertension: Yes Immune Disorder: Yes (MULTIPLE SCLEROSIS) Implanted Vascular Access Dvce: Yes (R. SIDE POWER PORT) Musculoskeletal: Yes Neurologic: Yes Psychiatric: Yes Reproductive: No Respiratory: No Immunizations Current: Yes Migraines: Yes Radiation Therapy: Yes Renal Failure: Yes (STAGE 3 CKD) Thyroid Disease: Yes ?: Not Menopausal: Yes Past Surgical History Abdominal Surgery: Yes (APPENDECTOMY) AICD: No Appendectomy: Yes Body Medical Devices: port right chest loop recorder Cardiac Surgery: No Ear Surgery: No Endocrine Surgery: No Eye Surgery: Yes (LASIK 1999) Genitourinary Surgery: No Gynecologic Surgery: No Joint Replacement: No Neurologic Surgery: Yes (CARPAL TUNNEL L WRIST) Oral Surgery: Yes (TONSILLECTOMY) Pacemaker: No Thoracic Surgery: Yes (BILATERAL LUMPECTOMY WITH RADIATION L SIDE, left masectomy) Tonsillectomy: Yes Other Surgery: Yes (left mastectomy appendectomy, tonsilctomy, left carpal tunnel.) Social History Alcohol Use: No Tobacco Use: No Substance Use: No Allergies-Medications (Allergen,Severity, Reaction): Coded Allergies: kiwi (Verified Allergy, Severe, THROAT SWELLS, 09/24/17) adhesive (Verified Allergy, Intermediate, BLISTERS, REDNESS AT PORT SITE, ITCHING, 09/24/17) latex (Verified Allergy, Intermediate, BLISTERS, 09/24/17) povidone-iodine (Verified Allergy, Intermediate, BLISTERS, REDNESS AT PORT SITE, 09/24/17) Reported Meds & Prescriptions Reported Meds & Active Scripts Active Epipen 2-Corey Inj (Epinephrine) 0.3 Mg/0.3 Ml Pfpen 0.3 Mg IM ONCE PRN Reported D3 Maximum Strength (Cholecalciferol) 5,000 Unit Cap 2,000 Units PO BID Synthroid (Levothyroxine Sodium) 112 Mcg Tab 112 Mcg PO DAILY Reclast Inj (Zoledronic Acid) 5 Mg/100 Ml Inj 5 Mg IV Q365D Dicyclomine (Dicyclomine HCl) 20 Mg Tab 20 Mg PO BID Botox Inj (Onabotulinumtoxina) 100 Unit Inj 5 Units I-DERMAL ONCE Excedrin Extra Strength (Sqbumyt-Qowqlrllakxxi-Cepyxbqb) 250 Mg-250 Mg-65 Mg Tab 1 Tab PO DAILY Flonase Nasal Butler (Fluticasone Nasal Butler) 50 Mcg/Act Butler 50 Mcg EACH NARE BID Azelastine Nasal Butler (Azelastine HCl) 0.1% Butler 1 Butler EACH NARE BID Feraheme (Ferumoxytol) 510 Mg/17 Ml (30 Mg/Ml) Inj 17 Ml IV WEEKLY Latuda (Lurasidone) 20 Mg Tab 40 Mg PO DAILY Methotrexate 2.5 Mg Tab 2.5 Mg PO Q7D Folic Acid 0.4 Mg Tab 1 Mg PO DAILY [Ocrevus] 300 Mg IV [id number] Zantac (Ranitidine HCl) 300 Mg Tab 300 Mg PO DAILY Singulair (Montelukast Sodium) 10 Mg Tab 10 Mg PO DAILY Requip (Ropinirole) 3 Mg Tab 3 Mg PO HS Protonix (Pantoprazole Sodium) 20 Mg Tab 20 Mg PO BID Pravachol (Pravastatin) 20 Mg Tab 20 Mg PO DAILY Klonopin (Clonazepam) 0.5 Mg Tab 0.5 Mg PO QID PRN Potassium Chloride 1 Pow Pow 20 Meq PO DAILY Effexor (Venlafaxine HCl) 75 Mg Tab 150 Mg PO DAILY Calcium 1000 + D (Calcium Carbonate-Cholecalciferol) 1,000-800 Mg-Unit Tab 2, 000 Tab PO DAILY Review of Systems Except as stated in HPI: all other systems reviewed are Neg General / Constitutional: No: Fever, Chills Eyes: No: Visual changes HENT: Positive: Vertigo, Lightheadedness, No: Headaches Cardiovascular: Positive: Chest Pain or Discomfort Respiratory: No: Cough, Shortness of Breath Gastrointestinal: Positive: Nausea, Vomiting (x1), No: Abdominal Pain Genitourinary: No: Flank Pain Musculoskeletal: No: Myalgias, Arthralgias Skin: No Rash Neurologic: Positive: Dizziness, No: Weakness, Syncope, Focal Abnormalities, Coordination Problem Psychiatric: Positive: Anxiety Hematologic/Lymphatic: No: Easy Bruising Physical Exam Narrative GENERAL: Well-developed well-nourished female in no acute distress no respiratory distress SKIN: Warm and dry. HEAD: Normocephalic. EYES: No scleral icterus. No injection or drainage. NECK: Supple, trachea midline. No JVD or lymphadenopathy. CARDIOVASCULAR: Regular rate and rhythm without murmurs, gallops, or rubs. RESPIRATORY: Breath sounds equal bilaterally. No accessory muscle use. GASTROINTESTINAL: Abdomen soft, non-tender, nondistended. MUSCULOSKELETAL: No cyanosis, or edema. BACK: Nontender without obvious deformity. No CVA tenderness. Data Data Last Documented VS Vital Signs Date Time Temp Pulse Resp B/P (MAP) Pulse Ox O2 Delivery O2 Flow Rate FiO2 09/24/17 23:18 70 16 127/73 (91) 98 Room Air 09/24/17 21:29 97.7 Orders Orders Electrocardiogram (09/24/17 21:16) Complete Blood Count With Diff (09/24/17 21:16) Basic Metabolic Panel (Bmp) (09/24/17 21:16) Ckmb (Isoenzyme) Profile (09/24/17 21:16) Troponin I (09/24/17 21:16) Chest, Single Ap (09/24/17 21:16) Iv Access Insert/Monitor (09/24/17 21:16) Ecg Monitoring (09/24/17 21:16) Oxygen Administration (09/24/17 21:16) Oximetry (09/24/17 21:16) Nitroglycerin Sl (Nitrostat Sl) (09/24/17 21:30) Sodium Chlor 0.9% 1000 Ml Inj (Ns 1000 M (09/24/17 21:30) Lorazepam (Ativan) (09/24/17 21:30) Metoclopramide Inj (Reglan Inj) (09/24/17 22:45) Nitroglycerin 2% Oint (Nitroglycerin 2% (09/24/17 23:30) Sodium Chlorid 0.9% 500 Ml Inj (Ns 500 M (09/24/17 23:30) B-Type Natriuretic Peptide (09/24/17 23:48) Admit Order (Ed Use Only) (09/24/17 ) [employer] Sales Associate / Telemetry ALEX.Q8H (09/24/17 23:50) Diet Npo (09/25/17 Breakfast) Activity Oob With Assistance (09/24/17 23:50) Notify Dr: Other (09/24/17 23:50) Meclizine (Antivert) (09/25/17 00:00) Ondansetron Inj (Zofran Inj) (09/25/17 00:00) Lorazepam (Ativan) (09/25/17 00:00) Labs Laboratory Tests Test 09/24/17 21:18 White Blood Count 7.3 TH/MM3 Red Blood Count 4.26 MIL/MM3 Hemoglobin 13.3 GM/DL Hematocrit 39.0 % Mean Corpuscular Volume 91.4 FL Mean Corpuscular Hemoglobin 31.3 PG Mean Corpuscular Hemoglobin Concent 34.2 % Red Cell Distribution Width 15.3 % Platelet Count 237 TH/MM3 Mean Platelet Volume 7.0 FL Neutrophils (%) (Auto) 67.2 % Lymphocytes (%) (Auto) 20.2 % Monocytes (%) (Auto) 10.6 % Eosinophils (%) (Auto) 1.3 % Basophils (%) (Auto) 0.7 % Neutrophils # (Auto) 4.8 TH/MM3 Lymphocytes # (Auto) 1.5 TH/MM3 Monocytes # (Auto) 0.8 TH/MM3 Eosinophils # (Auto) 0.1 TH/MM3 Basophils # (Auto) 0.1 TH/MM3 CBC Comment DIFF FINAL Differential Comment Blood Urea Nitrogen 13 MG/DL Creatinine 1.10 MG/DL Random Glucose 122 MG/DL Calcium Level 9.0 MG/DL Sodium Level 139 MEQ/L Potassium Level 3.4 MEQ/L Chloride Level 104 MEQ/L Carbon Dioxide Level 25.3 MEQ/L Anion Gap 10 MEQ/L Estimat Glomerular Filtration Rate 50 ML/MIN Total Creatine Kinase 64 U/L Troponin I LESS THAN 0.02 NG/ML B-Type Natriuretic Peptide 30 PG/ML MDM Medical Decision Making Medical Screen Exam Complete: Yes Emergency Medical Condition: Yes Medical Record Reviewed: Yes Interpretation(s) EKG normal sinus rhythm rate [address] elevation injury pattern or ectopy noted trop i: less than 0.02, not elevated; ck: 64, not elevated Vital Signs Date Time Temp Pulse Resp B/P (MAP) Pulse Ox O2 Delivery O2 Flow Rate FiO2 09/24/17 23:18 70 16 127/73 (91) 98 Room Air 09/24/17 22:15 66 16 116/76 (89) 97 Room Air 09/24/17 22:02 16 09/24/17 21:45 67 16 154/86 (108) 99 Room Air 09/24/17 21:34 71 18 99 Room Air 09/24/17 21:29 97.7 18 99 Room Air 09/24/17 21:15 97.7 69 16 140/84 (102) 98 CBC & BMP Diagram 09/24/17 21:18 Calcium Level 9.0 Last Impressions Chest X-Ray 09/24/176 Signed Impressions: Service Date/Time: Sunday, September 24, 2017 21:29 - CONCLUSION: 1. Subsegmental basilar airspace disease. Right Gxrbng-[id number]-Exek in superior vena cava. Juan Garrison MD Differential Diagnosis Chest pain atypical chest pain ACS WI arrhythmia electrolyte disturbance adverse medication reaction anemia Narrative Course Patient placed on electronic device monitor IV access obtained specimens collected and sent for resulting patient administered sublingual nitroglycerin times one and Ativan 0.5 mg by mouth times one dose for restless leg and anxiety Patient continues to complain of nausea and received Reglan 10 mg IV Patient administered additional dose of Ativan 1 mg by mouth along with nitroglycerin paste 1 inch to the chest wall normal saline bolus 1 500 cc Patient aware of lab results are found to be in normal range EKG which reveals no acute injury pattern change and reports symptomatic improvement after nitroglycerin Reglan Ativan and Zofran. Patient now complains of dizziness administered Antivert times one dose for dizziness which she has chronically. Patient remains in sinus rhythm without ectopy vital signs otherwise remain within normal range. Patient's case discussed with on-call medicine with plan to admit hobs for chest pain and dizziness; discussed with Maria Antonia --- admit to Dr Hines OBS Physician Communication Physician Communication call placed to [facility] service Diagnosis Primary Impression: Chest pain Additional Impressions: Dizziness H/O multiple sclerosis Admitting Information Admitting Physician Requests: Observation Jodee Oseguera MD Sep 24, 2017 21:32
[2017-09-24 21:36] LABS: HEMO FLAGS DIFF FINAL
[2017-09-24 21:38] LABS: CHLORIDE 104 MEQ/L (98-107); POTASSIUM 3.4 MEQ/L (3.5-5.1); SODIUM (NA) 139 MEQ/L (136-145)
[2017-09-24 21:41] LABS: ANION GAP 10 MEQ/L (5-15); BICARBONATE 25.3 MEQ/L (21.0-32.0); BLOOD UREA NITROGEN 13 MG/DL (7-18)
[2017-09-24 21:45] VITALS: BP 154/86; PULSE 67; RESP 16; O2SAT 99
[2017-09-24 21:45] LABS: GLOMERULAR FILTRATION RATE 50 ML/MIN (>89)
--- NOTE | 2017-09-24 21:47 | RADRPT ---
EXAM DATE/TIME: 09/24/2017 21:29 [place] COMPARISON: CHEST SINGLE AP, January 23, 2017, 9:08. INDICATIONS : Chest pain. MEDICAL HISTORY : Cardiovascular disease. SURGICAL HISTORY : Loop recorder, Infusaport ENCOUNTER: Initial ACUITY: 1 day PAIN SCORE: 8/10 LOCATION: Bilateral chest FINDINGS: A single view of the chest demonstrates a right-sided Rkjptw-c-Oemp in the superior vena cava. Subseg mental airspace disease at the lung bases. No effusion. No pneumothorax. The heart size upper limits normal. CONCLUSION: 1. Subsegmental basilar airspace disease. Right Ckglka-i-Hxfw in superior vena cava. Juan Garrison MD on September 24, 2017 at 21:44 Board Certified Radiologist. This report was verified electronically.
[2017-09-24 21:53] LABS: CREATINE KINASE 64 U/L (26-192)
[2017-09-24] MEDS: SODIUM CHLOR 0.9% 1000 ML INJ 1,000 ML IV SCH (21:57)
[2017-09-24 22:15] VITALS: BP 116/76; PULSE 66; RESP 16; O2SAT 97
[2017-09-24] MEDS ORDERED: METOCLOPRAMIDE HCL 10 MG/2 ML VIAL IV PUSH ONE (22:45)
[2017-09-24 23:18] VITALS: BP 127/73; PULSE 70; RESP 16; O2SAT 98
[2017-09-24] MEDS ORDERED: NITROGLYCERIN 2% OINT 1 GM PACKET TOPICAL ONE (23:30)
[2017-09-24] MEDS ORDERED: SODIUM CHLORID 0.9% 500 ML INJ 500 ML IV ONE (23:30)
[2017-09-25] MEDS ORDERED: ONDANSETRON HCL 4 MG/2 ML VIAL IV PUSH ONE
[2017-09-25] MEDS ORDERED: MORPHINE SULFATE 4 MG/ML INJ IV PUSH PRN
[2017-09-25] MEDS ORDERED: MECLIZINE HCL 25 MG TAB PO ONE
[2017-09-25] MEDS ORDERED: ACETAMINOPHEN/HYDROcodone 325 MG/7.5 MG TAB PO PRN
[2017-09-25] MEDS ORDERED: SODIUM CHLORIDE 0.9% FLUSH 10 ML FLUSH IV FLUSH PRN
[2017-09-25] MEDS ORDERED: ACETAMINOPHEN 500 MG CPLT PO PRN
[2017-09-25] MEDS ORDERED: NITROGLYCERIN 0.4 MG SL 25 TABS/BTL SL PRN
[2017-09-25] MEDS ORDERED: LORazepam 1 MG TAB PO ONE
[2017-09-25] MEDS ORDERED: ONDANSETRON HCL 4 MG/2 ML VIAL IV PUSH PRN (00:15)
[2017-09-25] MEDS ORDERED: MORPHINE SULFATE 2 MG/ML INJ IV PRN (00:15)
[2017-09-25] MEDS: PANTOPRAZOLE SOD 20 MG DELAYED RELEASE TAB PO SCH ×2 (00:21→09:48)
[2017-09-25] MEDS: DICYCLOMINE HCL 20 MG TAB PO SCH ×2 (00:21→09:48)
[2017-09-25 01:05] VITALS: BP 126/91
[2017-09-25] MEDS: FAMOTIDINE 20 MG TAB PO SCH ×2 (01:33→09:48)
[2017-09-25] MEDS: clonazePAM 0.5 MG TAB PO PRN ×3 (01:33→12:26)
[2017-09-25 01:40] VITALS: PULSE 63
[2017-09-25 04:00] VITALS: BP 103/80; PULSE 65; RESP 20; TEMP 97.5; O2SAT 99
[2017-09-25 04:05] LABS: CREATINE KINASE 65 U/L (26-192)
[2017-09-25] MEDS ORDERED: LEVOTHYROXINE SODIUM 112 MCG TAB PO SCH (06:00)
[2017-09-25 06:06] LABS: AUTOMATED NEUTROPHIL # 5.6 TH/MM3 (1.8-7.7); BASOPHIL % 0.5 % (0.0-2.0); EOSINOPHIL # 0.2 TH/MM3 (0-0.4); EOSINOPHIL % 2.1 % (0.0-4.0); HEMATOCRIT 39.6 % (35.0-46.0); HEMO FLAGS DIFF FINAL; LYMPH % 18.4 % (9.0-44.0); LYMPHOCYTE # 1.5 TH/MM3 (1.0-4.8); MEAN CELL VOLUME 92.2 FL (80.0-100.0); MEAN CORPUSCULAR HEMOGLOBIN 30.6 PG (27.0-34.0); MEAN CORPUSCULAR HGB CONC 33.2 % (32.0-36.0); MONO % 8.9 % (0.0-8.0); NEUT % 70.1 % (16.0-70.0); PLATELET COUNT 245 TH/MM3 (150-450); RED CELL DISTRIBUTION WIDTH 15.4 % (11.6-17.2)
[2017-09-25 06:16] LABS: POTASSIUM 3.8 MEQ/L (3.5-5.1)
[2017-09-25 06:22] LABS: BICARBONATE 25.6 MEQ/L (21.0-32.0)
[2017-09-25 08:00] VITALS: PULSE 63
--- NOTE | 2017-09-25 08:50 | HHI.HP ---
[facility] Primary Care Physician Drea Mayers D.O. Admission Diagnosis Chest pain; dizziness Diagnoses: (1) Chest pain (2) Dizziness Diagnosis: Secondary Chief Complaint: Chest pain and dizziness Travel History International Travel<30 Days: No Contact w/Intl Traveler <30 Da: No Traveled to Known Affected Are: No History of Present Illness Ms. Dixon is a 62-year-old female patient with a known medical history of MS, GERD, gastroparesis, breast cancer x 2 with chemotherapy, CKD, HTN and ankylosing spondylitis who presented to the ED with complaints of chest pressure and dizziness. Patient states that around 1600 last evening she developed a chest pressure while watching television. She states that it was located in her midsternal chest, denies any radiation of pain, was an 8/10 on pain scale, did admit to associated nausea, vomiting, diaphoresis, dizziness and shortness of breath, lasted over an hour with relief after taking Nitroglycerin SL x 3 in the ED. Patient did take her BP at home and it was reportedly 150's/110's which led her to the hospital. Patient states she has been having intermittent chest pain and pressure for over a year now, underwent a nuclear stress test last June with Dr. Taylor which was unremarkable. She has been following with him in the outpatient setting and underwent placement of a loop recorder 3 weeks ago for dizziness and occasional fainting with unknown cause. Patient states that the last time she fainted was in June of this year. She also follows with Dr. Asif, neurology, last seen a couple weeks ago, who manages her MS. Patient has a port placed for injections. Patient also follows with a wireless field technician in town who manages her ankylosing spondylitis. Dr. England, gastroenterology, also manages her gastroparesis and last colonoscopy was in June of this year which was reportedly unremarkable , did have an episode of anemia and required hospitalization with blood transfusion. At the time of assessment patient's chest pressure was a 3/10 and has improved greatly. Denies any current dizziness. Does still complain of restless leg symptoms. Denies any fevers, chills, headache, shortness of breath , ab pain, n/v/d or dysuria. Denies ever having an episode of near-syncope or syncope in the past. Review of Systems Constitutional: DENIES: Fever, Chills Eyes: DENIES: Blurred vision, Diplopia Respiratory: DENIES: Cough, Sputum production, Shortness of breath Cardiovascular: COMPLAINS OF: Chest pain, DENIES: Palpitations, Syncope, Lower Extremity Edema Gastrointestinal: COMPLAINS OF: Nausea, Vomiting, DENIES: Abdominal pain, Black stools, Bloody stools, Constipation, Diarrhea Musculoskeletal: COMPLAINS OF: Joint pain (restless legs) Hematologic/lymphatic: DENIES: Bruising Psychiatric: COMPLAINS OF: Anxiety Except as stated in HPI: all other systems reviewed are Neg Past Family Social History Past Medical History CKD IIIb Previous admissions for chest pain, had stress test in 2014 that was negative. Hypertension Hyperlipidemia Multiple sclerosis Restless leg syndrome Gastroesophageal reflux Hypothyroidism History of breast cancer History trigeminal neuralgia, previously treated with Botox injections. History of obstructive sleep apnea Elevated PTT Gastroparesis Depression/anxiety History of left thumb/right leg hemangioma Chronic benzodiazepine use Allergic rhinitis Urinary tract infection suppression Past Surgical History Bilateral breast lumpectomies including left breast mastectomy Tonsillectomy Appendectomy Stereotactic radiosurgery of left trigeminal nerve History of endoscopy with esophageal stricture dilatation Left wrist carpal tunnel surgery Lasik eye surgery Botox injection Esophageal dilatation Loop recorder placement. Reported Medications Active Epipen 2-Corey Inj (Epinephrine) 0.3 Mg/0.3 Ml Pfpen 0.3 Mg IM ONCE PRN Reported D3 Maximum Strength (Cholecalciferol) 5,000 Unit Cap 2,000 Units PO BID Synthroid (Levothyroxine Sodium) 112 Mcg Tab 112 Mcg PO DAILY Reclast Inj (Zoledronic Acid) 5 Mg/100 Ml Inj 5 Mg IV Q365D Dicyclomine (Dicyclomine HCl) 20 Mg Tab 20 Mg PO BID Botox Inj (Onabotulinumtoxina) 100 Unit Inj 5 Units I-DERMAL ONCE Excedrin Extra Strength (Sxpwfgc-Nxbfnhgptemqg-Nmeuhxvn) 250 Mg-250 Mg-65 Mg Tab 1 Tab PO DAILY Flonase Nasal O[place]ond (Fluticasone Nasal [place]) 50 Mcg/Act [place] 50 Mcg EACH NARE BID Azelastine Nasal [place] (Azelastine HCl) 0.1% Osmond 1 Osmond EACH NARE BID Feraheme (Ferumoxytol) 510 Mg/17 Ml (30 Mg/Ml) Inj 17 Ml IV WEEKLY Latuda (Lurasidone) 20 Mg Tab 40 Mg PO DAILY Methotrexate 2.5 Mg Tab 2.5 Mg PO Q7D Folic Acid 0.4 Mg Tab 1 Mg PO DAILY [Ocrevus] 300 Mg IV [id number] Zantac (Ranitidine HCl) 300 Mg Tab 300 Mg PO DAILY Singulair (Montelukast Sodium) 10 Mg Tab 10 Mg PO DAILY Requip (Ropinirole) 3 Mg Tab 3 Mg PO HS Protonix (Pantoprazole Sodium) 20 Mg Tab 20 Mg PO BID Pravachol (Pravastatin) 20 Mg Tab 20 Mg PO DAILY Klonopin (Clonazepam) 0.5 Mg Tab 0.5 Mg PO QID PRN Potassium Chloride 1 Pow Pow 20 Meq PO DAILY Effexor (Venlafaxine HCl) 75 Mg Tab 150 Mg PO DAILY Calcium 1000 + D (Calcium Carbonate-Cholecalciferol) 1,000-800 Mg-Unit Tab 2, 000 Tab PO DAILY Allergies: Coded Allergies: kiwi (Verified Allergy, Severe, THROAT SWELLS, 09/24/17) adhesive (Verified Allergy, Intermediate, BLISTERS, REDNESS AT PORT SITE, ITCHING, 09/24/17) latex (Verified Allergy, Intermediate, BLISTERS, 09/24/17) povidone-iodine (Verified Allergy, Intermediate, BLISTERS, REDNESS AT PORT SITE, 09/24/17) Active Ordered Medications Current Medications Medications (Trade) Dose Ordered Sig/Abril Route Start Time Stop Time Status Last Admin Sodium Chloride 1,000 ml @ 100 mls/hr Q10H IV 09/24/17 21:30 09/24/17 21:57 (NS Flush) 2 ml BID IV FLUSH 09/25/17 09:00 (NS Flush) 2 ml UNSCH PRN IV FLUSH 09/25/17 00:00 (Nitrostat Sl) 0.4 mg Q5M PRN SL 09/25/17 00:00 (Tylenol) 500 mg Q4H PRN PO 09/25/17 00:00 ([place] 7.5-325 Mg) 1 tab Q4H PRN PO 09/25/17 00:00 (KlonoPIN) 0.5 mg QID PRN PO 09/25/17 00:00 09/25/17 06:00 (Bentyl) 20 mg BID PO 09/25/17 00:00 09/25/17 00:21 (Synthroid) 112 mcg DAILY@0600 PO 09/25/17 06:00 09/25/17 06:00 (Latuda) 40 mg DAILY PO 09/25/17 09:00 (Singulair) 10 mg DAILY PO 09/25/17 09:00 (Protonix) 20 mg BID PO 09/25/17 00:00 09/25/17 00:21 (Pravachol) 20 mg DAILY PO 09/25/17 09:00 Patient Own Medication PT OWN MED: AZELAST... BID NASAL 09/25/17 09:00 Future Hold (Flonase Marquise Spr) 1 spray BID NASAL 09/25/17 09:00 (Pepcid) 20 mg BID PO 09/25/17 00:30 09/25/17 01:33 (Effexor Xr) 150 mg DAILY PO 09/25/17 09:00 (Zofran Inj) 4 mg Q6HR PRN IV PUSH 09/25/17 00:15 (Morphine Inj) 2 mg Q3H PRN IV 09/25/17 00:15 09/25/17 06:02 Family History Father had a history of colon cancer also had CABG. Social History Denies any current tobacco use, states she quit smoking in 1990. Denies any alcohol use. Denies any illicit drug use. Physical Exam Vital Signs Vital Signs Date Time Temp Pulse Resp B/P (MAP) Pulse Ox O2 Delivery O2 Flow Rate FiO2 09/25/17 04:00 97.5 65 20 103/80 (88) 99 09/25/17 01:40 63 09/25/17 01:05 71 16 126/91 (103) 99 09/24/17 23:18 70 16 127/73 (91) 98 Room Air 09/24/17 22:15 66 16 116/76 (89) 97 Room Air 09/24/17 22:02 16 09/24/17 21:45 67 16 154/86 (108) 99 Room Air 09/24/17 21:34 71 18 99 Room Air 09/24/17 21:29 97.7 18 99 Room Air 09/24/17 21:15 97.7 69 16 140/84 (102 98 Physical Exam GENERAL: This is a well-nourished, well-developed female patient, lying in bed in no apparent distress. SKIN: No rashes, ecchymoses or lesions. Warm and dry. HEENT: Atraumatic. Normocephalic. Pupils equal round and reactive. Extraocular motions intact. No scleral icterus. No injection or drainage. Nose without bleeding. Uvula midline. Airway patent. NECK: Trachea midline. No JVD. Supple. CARDIOVASCULAR: Regular rate and rhythm without murmurs, gallops, or rubs. No reproducible chest pressure or pain to palpation. RESPIRATORY: Clear to auscultation. Breath sounds equal bilaterally. No wheezes , rales, or rhonchi. GASTROINTESTINAL: Abdomen soft, non-tender, nondistended. MUSCULOSKELETAL: Extremities without clubbing, cyanosis, or edema. No joint tenderness, effusion, or edema noted. NEUROLOGICAL: Awake and alert. Cranial nerves II through XII intact. Motor and sensory grossly within normal limits. Five out of 5 muscle strength in all muscle groups. Normal speech. Laboratory Laboratory Tests Test 09/24/17 21:18 09/25/17 03:25 09/25/17 05:37 White Blood Count 7.3 8.0 Red Blood Count 4.26 4.30 Hemoglobin 13.3 13.1 Hematocrit 39.0 39.6 Mean Corpuscular Volume 91.4 92.2 Mean Corpuscular Hemoglobin 31.3 30.6 Mean Corpuscular Hemoglobin Concent 34.2 33.2 Red Cell Distribution Width 15.3 15.4 Platelet Count 237 245 Mean Platelet Volume 7.0 7.0 Neutrophils (%) (Auto) 67.2 70.1 Lymphocytes (%) (Auto) 20.2 18.4 Monocytes (%) (Auto) 10.6 8.9 Eosinophils (%) (Auto) 1.3 2.1 Basophils (%) (Auto) 0.7 0.5 Neutrophils # (Auto) 4.8 5.6 Lymphocytes # (Auto) 1.5 1.5 Monocytes # (Auto) 0.8 0.7 Eosinophils # (Auto) 0.1 0.2 Basophils # (Auto) 0.1 0.0 CBC Comment DIFF FINAL DIFF FINAL Differential Comment Blood Urea Nitrogen 13 12 Creatinine 1.10 0.92 Random Glucose 122 85 Calcium Level 9.0 8.5 Sodium Level 139 143 Potassium Level 3.4 3.8 Chloride Level 104 108 Carbon Dioxide Level 25.3 25.6 Anion Gap 10 9 Estimat Glomerular Filtration Rate 50 62 Total Creatine Kinase 64 65 Troponin I LESS THAN 0.02 LESS THAN 0.02 B-Type Natriuretic Peptide 30 Result Diagram: 09/25/17 0537 09/25/17 0537 Imaging Last Impressions Chest X-Ray 09/24/172115 Signed Impressions: Service Date/Time: Sunday, September 24, 2017 21:29 - CONCLUSION: 1. Subsegmental basilar airspace disease. Right Avuche-m-Cejs in superior vena cava. Juan Garrison MD Septic Shock Reassessment Septic shock perfusion: reassessment completed Caprini VTE Risk Assessment Caprini VTE Risk Assessment: Mod/High Risk (score >= 2) Caprini Risk Assessment Model Point Value = 1 Point Value = 2 Point Value = 3 Point Value = 5 Age 41-60 Minor surgery BMI > 25 kg/m2 Swollen legs Varicose veins or History of unexplained or recurrent spontaneous Oral contraceptives or hormone replacement Sepsis (< 1 month) Serious lung disease, including pneumonia (< 1 month) Abnormal pulmonary function Acute myocardial infarction Congestive heart failure (< 1 month) History of inflammatory bowel disease Medical patient at bed rest Age 61-74 Arthroscopic surgery Major open surgery (> 45 min) Laparoscopic surgery (> 45 min) Malignancy Confined to bed (> 72 hours) Immobilizing plaster cast Central venous access Age >= 75 History of VTE Family history of VTE Factor V Leiden Prothrombin [id number] Lupus anticoagulant Anticardiolipin antibodies Elevated serum homocysteine Heparin-induced thrombocytopenia Other congenital or acquired thrombophilia Stroke (< 1 month) Elective arthroplasty Hip, pelvis, or leg fracture Acute spinal cord injury (< 1 month) Prophylaxis Regimen Total Risk Factor Score Risk Level Prophylaxis Regimen 0-1 Low Early ambulation 2 Moderate Order ONE of the following: *Sequential Compression Device (SCD) *Heparin 5000 units SQ BID 3-4 Higher Order ONE of the following medications: *Heparin 5000 units SQ TID *Enoxaparin/Lovenox 40 mg SQ daily (WT < 150 kg, CrCl > 30 mL/min) *Enoxaparin/Lovenox 30 mg SQ daily (WT < 150 kg, CrCl > 10-29 mL/min) *Enoxaparin/Lovenox 30 mg SQ BID (WT < 150 kg, CrCl > 30 mL/min) AND/OR *Sequential Compression Device (SCD) 5 or more Highest Order ONE of the following medications: *Heparin 5000 units SQ TID (Preferred with Epidurals) *Enoxaparin/Lovenox 40 mg SQ daily (WT < 150 kg, CrCl > 30 mL/min) *Enoxaparin/Lovenox 30 mg SQ daily (WT < 150 kg, CrCl > 10-29 mL/min) *Enoxaparin/Lovenox 30 mg SQ BID (WT < 150 kg, CrCl > 30 mL/min) AND *Sequential Compression Device (SCD) Assessment and Plan Problem List: (1) Chest pain ICD Code: R07.9 - Chest pain, unspecified Status: Acute Plan: Patient was admitted for observation. Serial EKGs and serial troponins were ordered for ruling out ACS purposes. Serial troponins flat. EKGS reviewed showing NSR with HR 60. No ST changes present to indicate ischemia. Spoke directly with Dr. Taylor, patient's injury/safety hazard assessment, who reviewed her records and performed a Nuclear stress test on patient in June of 2016 which was reportedly unremarkable. He has also last seen patient a few weeks ago and monitoring her with her loop recorder. He recommends if ruled out with serial cardiac enzymes and serial EKGS, OK to discharge and to follow up in his office. He said that he will arrange appointment for her. Patient was given PO Ativan which patient states has helped her symptoms and anxiety. Was also given SL Nitro as well as a patch with chest pressure diminished and improving. Chronic dizziness was treated with Antivert x 1 in ED which has resolved the dizziness. CXR reviewed showing subsegmental basilar airspace disease. Port in place. Morphine IV available PRN per pain scale. [place] and Nitro SL also available PRN. Clonazepam available PRN for anxiety. Patient is stable at this time and agreeable to the plan. (2) Dizziness ICD Code: R42 - Dizziness and giddiness Status: Acute Plan: Resolved with one time dose of Antivert. Recommendations from cardiology is to follow up in outpatient setting in his office. (3) Multiple sclerosis ICD Code: G35 - Multiple sclerosis Status: Acute Plan: Stable at this time. Supportive care. Continue home medications. Restless leg syndrome, patient has been given Ativan with some relief. Clonazepam given. (4) Hypothyroidism ICD Code: E03.9 - Hypothyroidism, unspecified Status: Acute Plan: Continue home Levothyroxine. DVT prophylaxis: SCDs. Megan Membreno Sep 25, 2017 08:50
[2017-09-25] MEDS ORDERED: VENLAFAXINE HCL XR 75 MG CAP PO SCH (09:00)
[2017-09-25] MEDS ORDERED: MONTELUKAST SODIUM 10 MG TAB PO SCH (09:00)
[2017-09-25] MEDS ORDERED: AZELASTINE HCL 0.1% NASAL SPRAY NASAL SCH (09:00)
[2017-09-25] MEDS ORDERED: SODIUM CHLORIDE 0.9% FLUSH 10 ML FLUSH IV FLUSH SCH (09:00)
[2017-09-25] MEDS ORDERED: FLUTICASONE PROPIONATE 50 MCG/ACT 16 GM NASAL SPRAY NASAL SCH (09:00)
[2017-09-25] MEDS ORDERED: PRAVASTATIN SOD 20 MG TAB PO SCH (09:00)
[2017-09-25] MEDS ORDERED: LURASIDONE 40 MG TAB PO SCH (09:00)
[2017-09-25 09:28] VITALS: BP 124/82; PULSE 63; RESP 18; TEMP 98.1; O2SAT 97
[2017-09-25] MEDS: SODIUM CHLOR 0.9% 1000 ML INJ 1,000 ML IV SCH (09:48)
--- NOTE | 2017-09-25 10:00 | HHI.DCPOC ---
Discharge Care Plan Diagnosis: (1) Chest pain (2) Gastroparesis (3) Hypertension (4) MS (multiple sclerosis) (5) CKD (chronic kidney disease) stage 3, GFR 30-59 ml/min (6) Ankylosing spondylitis (7) Hyperlipidemia (8) Dizziness (9) Hypothyroidism (10) GERD (gastroesophageal reflux disease) Goals to Promote Your Health * To prevent worsening of your condition and complications * To maintain your health at the optimal level Directions to Meet Your Goals Take your medications as prescribed Follow your dietary instruction Follow activity as directed Keep your appointments as scheduled Take your immunizations and boosters as scheduled If your symptoms worsen call your PCP, if no PCP go to Urgent Care Center or Emergency Room Smoking is Dangerous to Your Health. Avoid second hand smoke Call the 24-hour hour crisis hotline for domestic abuse at Megan Membreno Sep 25, 2017 10:00
[2017-09-25] MEDS ORDERED: NITR0.4S SL (10:04)
[2017-09-25] MEDS ORDERED: MECL-62 PO (10:28)
[2017-09-25 10:29] LABS: CREATINE KINASE 75 U/L (26-192)
[2017-09-25] MEDS ORDERED: MECLIZINE HCL 25 MG TAB PO PRN (10:30)
[2017-09-25] MEDS ORDERED: COMMODE BEDSIDE1 MI1 (11:19)
--- NOTE | 2017-09-25 14:01 | EKG ---
Date Performed: 09/25/2017 Time Performed: 09:23:52 PTAGE: 62 years EKG: SINUS BRADYCARDIA BORDERLINE ECG Compared to prior tracing no significant change PREVIOUS TRACING : 09/25/2017 03.14 DOCTOR: Aurora Mendez Interpretating Date/Time 09/25/2017 14:00:46
--- NOTE | 2017-09-25 14:02 | EKG ---
Date Performed: 09/24/2017 Time Performed: 21:21:38 PTAGE: 62 years EKG: Sinus rhythm NORMAL ECG Compared to prior tracing no significant change PREVIOUS TRACING : 09/03/2017 09.12 DOCTOR: Aurora Mendez Interpretating Date/Time 09/25/2017 14:01:16
--- NOTE | 2017-09-25 14:02 | EKG ---
Date Performed: 09/25/2017 Time Performed: 03:14:11 PTAGE: 62 years EKG: Sinus rhythm NORMAL ECG Compared to prior tracing no significant change PREVIOUS TRACING : 09/24/2017 21.21 DOCTOR: Aurora Mendez Interpretating Date/Time 09/25/2017 14:01:00
== END 2017-09-25 13:02 | disposition home or self-care (01) ==
LOC: PHED 21:11 → PHEDA 23:52 → PH3A 09-25 01:22
PROVIDERS: ADMIT Hospitalist; ATTEND Hospitalist
DX: R07.89 Other chest pain (principal); K31.84 Gastroparesis; G35 Multiple sclerosis; I12.9 Hypertensive chronic kidney disease with stage 1 through stage 4 chronic kidney disease, or unspecified chronic kidney disease; N18.3 Chronic kidney disease, stage 3 (moderate); M45.9 Ankylosing spondylitis of unspecified sites in spine; R11.2 Nausea with vomiting, unspecified; G25.81 Restless legs syndrome; E03.9 Hypothyroidism, unspecified; K21.9 Gastro-esophageal reflux disease without esophagitis; E78.5 Hyperlipidemia, unspecified; R42 Dizziness and giddiness; R55 Syncope and collapse; G47.33 Obstructive sleep apnea (adult) (pediatric); R06.02 Shortness of breath; R79.1 Abnormal coagulation profile; J30.9 Allergic rhinitis, unspecified; Z85.3 Personal history of malignant neoplasm of breast
CPT/HCPCS: 71010; 80048; 82550; 83880; 84484; 85025; 93005; 96361; 96374; 96375; 99285; G0378; J2270; J2405; J2765; J7030; J7040

== ENCOUNTER → 2017-12-15 | Day surgery (SDC) | payer MEDICARE, BC ==
[~2017-12-15] MED LIST changes: +BUPIVACAINE HCL PF 0.5% 30 ML VIAL ONE; -MACR100C3 PO; +MECL-62 PO; -MUPI2OIN TOPICAL; +NITR0.4S SL; +PRED2.5T PO; +PROPOFOL 200 MG/20 ML AMP IV ONE; +ROPI2TAB23 PO; +TRIAMCINOLONE ACETONIDE 40 MG/ML VIAL I-ARTICULR ONE; +VORT1TAB PO; +methylPREDNISolone ACETATE 40 MG/ML VIAL I-ARTICULR ONE
--- NOTE | 2017-12-15 15:14 | M6 ---
cc: Janelle Obregon MD 12/15/2017 PROCEDURE: Fluoroscopically-guided right hip joint injection. DESCRIPTION OF THE PROCEDURE: History and physical was completed and signed. Consent was signed. Procedure site was marked. Medications were listed and reconciled. Pain score was recorded. Allergies were noted. Time out was taken. Fluoroscopy time was recorded where applicable. Sedation was administered or directed by Dr. Obregon. The patient was given oxygen. The patient was monitored by a registered nurse. Total procedure time was greater than 15 minutes. IV was started, blood pressure cuff, pulse oximeter, and EKG were applied. The patient was placed in the supine position on a Lester table, sedated with small amounts of propofol titrated to effect. Vital signs were monitored and remained stable throughout the procedure. The right hip area was prepped with alcohol and draped with sterile drapes. Fluoroscopy was used to visualize the right acetabulum. A 3-1/2 inch 22 gauge spinal needle was advanced into the cephalad portion of the acetabulum. There was negative aspiration for blood or any other type of fluid and the patient was given 3 mL of 0.5% Marcaine, 20 mg of Depo-Medrol, 20 mg of Kenalog. Following the procedure, the patient was taken to the recovery room with stable vital signs, neurologically intact. She will be evaluated immediately and with followup to determine if she has a subjective decrease in her usual pain and a corresponding objective increase in her functional capability. Janelle Obregon MD [facility] , 09:14 AM , 09:55 AM
== END | disposition home or self-care (01) ==
LOC: PHSDC 07:01
PROVIDERS: ATTEND Pain Medicine Interventional Pain Medicine
DX: M25.551 Pain in right hip (principal); M54.5 Low back pain
CPT/HCPCS: 20610; 99152; J1030; J3301

== ENCOUNTER → 2018-03-19 | Day surgery (SDC) | payer MEDICARE, BC ==
[~2018-03-19] MED LIST changes: +CARB50TA3 PO; -FOLI400T PO; +INUL2TAB2 PO; +LEVO100T5 PO; +LOSA25TA PO; -LURA20TA PO; +MAGN250T11 PO; -MECL-62 PO; -METH2.5T PO; +REGL10TA5 PO; -REQU3TAB PO; +ROPI4TAB PO; +SULF500T3 PO; -SYNT112T PO; +VIIB10TA PO; -VORT1TAB PO; +VORT1TAB2 PO
--- NOTE | 2018-03-19 09:01 | M6 ---
cc: Janelle Obregon MD DATE: 03/19/2018 DATE OF : 1955 PROCEDURE: Fluoroscopically-guided injection, bilateral sacroiliac joints. History and physical was completed and signed. Consent was signed. Procedure site was marked. Medications were listed and reconciled. Pain score was recorded. Allergies were noted. Time out was taken. Fluoroscopy time was recorded where applicable. Sedation was administered or directed by Dr. Obregon. The patient was given oxygen. The patient was monitored by a registered nurse. Total procedure time was greater than 15 minutes. PROCEDURE NOTE: IV was started. Blood pressure cuff, pulse oximeter and EKG were applied. The patient was placed in the prone position on a Lester table, sedated with small amounts of propofol titrated to effect. Vital signs were monitored and remained stable throughout the procedure. The sacral area was prepped with alcohol and 10% Betadine solution and draped with sterile drapes. Fluoroscopy was used shooting from medial to lateral to clearly visualize the posterior joint line of the bilateral sacroiliac joints. Separate sterile 5-inch, 22-gauge spinal needles were advanced into these joints under fluoroscopic guidance. There was negative aspiration for blood or any other type of fluid and at each location, the patient was given 2 mL of 0.5% Marcaine, 20 mg of Depo-Medrol, 20 mg of Kenalog. Following the procedure, the patient was taken to the recovery room with stable vital signs, neurologically intact. She will be evaluated immediately and will followup to determine if she has a subjective decrease in her usual pain and a corresponding objective increase in her functional capabilities. MD [facility]/JOSE , 08:20 AM , 09:01 AM
== END | disposition home or self-care (01) ==
LOC: PHSDC 06:43
PROVIDERS: ATTEND Pain Medicine Interventional Pain Medicine
DX: M54.5 Low back pain (principal)
CPT/HCPCS: 99152; G0260; J1030; J3301; 27096